=== PATIENT | female | born 1975 | race Caucasian/White ===

== ENCOUNTER 2020-07-10 14:14 | Emergency (ER) | payer MEDICAID, SELFPAY ==
[2020-07-10 14:22] VITALS: BP 129/89; PULSE 98; RESP 16; TEMP 36.8; O2SAT 98; BMI 26.5
--- NOTE | 2020-07-10 14:44 | HMH.EDGENADL ---
ED Disposition Clinical Impression: Lumbar disc disease Low back pain Qualifiers: Chronicity: acute Back pain laterality: bilateral Sciatica presence: without sciatica Qualified Code(s): M54.5 - Low back pain Disposition: Home, Self-Care Condition on Discharge: Good Instructions: DI for Low Back Pain Additional Instructions: Prednisone as prescribed. [place] as needed for pain. Follow-up with your primary care doctor next week. Additional instructions for BACK PAIN: See your physician as soon as possible for further evaluation. Return immediately if back pain becomes intolerable, or if fever, numbness or weakness of your legs, loss of control of your bowels or bladder. Prescriptions: Hydrocod/Acet 5/325 mg [[place] 5/325mg tablet] 1 tab PO Q6HP PRN #10 tab PRN Reason: Pain Prescription Printed predniSONE [Prednisone 20mg Tab] 20 mg PO BID #10 tab Prescription Printed Referrals: Jeff Babcock MD [Staff Physician] - - Critical Care Critical Care Time: No Attestation: On 07/10/20, the high probability of a clinically significant, sudden or life threatening deterioration of the following system(s) required my full and direct attention, intervention and personal management. The time I documented below is in addition to time spent performing reported procedures but includes the following listed in this critical care notation. Medical Decision Making - Abelardo Inquiry Pt receiving controlled substance: Yes Abelardo was queried for this patient: Yes Risks and benefits of using a controlled substance: were not discussed with pt by me Vital Signs: 07/10/20 14:22 07/10/20 15:00 07/10/20 15:31 Temperature 98.3 F Temperature Source Oral Pulse Rate 94 H 89 Pulse Rate [Right] 98 H Respiratory Rate 16 Blood Pressure 142/91 H 155/95 H Blood Pressure [Right Arm] 129/89 Blood Pressure Mean 107 115 Blood Pressure Mean [Right Arm] 102 Blood Pressure Source [Right Arm] Automatic Cuff Blood Pressure Position [Right Arm] Sitting 02 Sat by Pulse Oximetry 98 96 98 Oxygen Delivery Method Room Air Orders (Tests/Meds): ED MEDICATIONS Discontinued Medications Generic Name Dose Route Start Last Admin Trade Name Freq PRN Reason Stop Dose Admin Dexamethasone Sodium Phosphate 8 mg 07/10/20 15:00 07/10/20 15:04 Dexamethasone 4mg/Ml 1ml Vial IM 07/10/20 15:01 8 mg ONCE ONE Administration Hydromorphone HCl 2 mg 07/10/20 15:00 07/10/20 15:03 Hydromorphone 2mg/Ml Syringe IM 07/10/20 15:01 2 mg ONCE ONE Administration Ondansetron HCl 4 mg 07/10/20 15:00 07/10/20 15:04 Ondansetron 4mg/2ml Vial IM 07/10/20 15:01 4 mg ONCE ONE Administration - CT Data CT Scan: L-Spine Time Received: 15:[address] Reviewed: Yes: I have viewed the radiologist's interpretation Findings Narrative: PROCEDURE: CT LUMBAR SPINE WO CON CLINICAL HISTORY: back pain, legs go numb COMPARISON: No exams were available for comparison TECHNIQUE: Axial images obtained with sagittal and coronal reformats. All CT scans at the facility use one or more dose reduction, viz: automated exposure control, ma/kV adjustment per patient size (including targeted exams where dose is matched to indication, i.e. head), or iterative reconstruction technique. FINDINGS: There is normal alignment. No acute fracture or dislocation is evident. No lytic or blastic changes. Minimal lumbar curvature convex right versus patient positioning. L3-L4: Mild bulging disc. L4-5: Mild bulging disc. L5-S1 mild bulging disc with small central disc protrusion. No bony canal stenosis. Mild foraminal narrowing bilaterally at L4-5 and L5-S1. 6 mm stone is present in the mid polar region of the left kidney. No hydronephrosis. Small nodes are present in the retroperitoneum. IMPRESSION: Mild bulging disc at L3-L4 L4-5 and L5-S1 with small central disc protrusion at L5-S1 and
--- NOTE | 2020-07-10 14:54 | CT_ITS ---
PROCEDURE: CT LUMBAR SPINE WO CON CLINICAL HISTORY: back pain, legs go numb COMPARISON: No exams were available for comparison TECHNIQUE: Axial images obtained with sagittal and coronal reformats. All CT scans at the facility use one or more dose reduction, viz: automated exposure control, ma/kV adjustment per patient size (including targeted exams where dose is matched to indication, i.e. head), or iterative reconstruction technique. FINDINGS: There is normal alignment. No acute fracture or dislocation is evident. No lytic or blastic changes. Minimal lumbar curvature convex right versus patient positioning. L3-L4: Mild bulging disc. L4-5: Mild bulging disc. L5-S1 mild bulging disc with small central disc protrusion. No bony canal stenosis. Mild foraminal narrowing bilaterally at L4-5 and L5-S1. 6 mm stone is present in the mid polar region of the left kidney. No hydronephrosis. Small nodes are present in the retroperitoneum. IMPRESSION: Mild bulging disc at L3-L4 L4-5 and L5-S1 with small central disc protrusion at L5-S1 and mild bilateral foraminal narrowing at L4-5 and L5-S1. No central canal stenosis. Left nephrolithiasis Dictated by: Bo Alvarenga MD 07/10/2020 15:38 Bo Alvarenga MD in [facility] 07/10/2020 15:38
[2020-07-10 15:00] VITALS: BP 142/91; PULSE 94; O2SAT 96
[2020-07-10 15:31] VITALS: BP 155/95; PULSE 89; O2SAT 98
--- NOTE | 2020-07-10 15:48 | PC.NURSE ---
Calling [facility] to let them know pt ready for d/c
[2020-07-10 16:16] VITALS: BP 115/68; PULSE 78; RESP 16; TEMP 36.6; O2SAT 97
== END 2020-07-10 16:18 | disposition home or self-care (01) ==
PROVIDERS: Emergency Provider Emergency Medicine
DX: M51.9 Unspecified thoracic, thoracolumbar and lumbosacral intervertebral disc disorder (principal); Z88.0 Allergy status to penicillin; Z88.5 Allergy status to narcotic agent
CPT/HCPCS: 72131; 96372; 99282; J2405

== ENCOUNTER → 2020-10-08 10:02 | Outpatient (CLI) | payer MEDICAID, SELFPAY ==
--- NOTE | 2020-10-08 10:05 | XR_ITS ---
PROCEDURE: XR FOOT WT BEARING RT 3V CLINICAL INDICATION: pain COMPARISON: No exams were available for comparison FINDINGS: No fracture or dislocation. No lytic or blastic change. There is normal mineralization. The joint spaces are well-preserved. No significant degenerative/arthritic changes. No erosive changes evident. Other findings:Small calcaneal spur mild pes cavum IMPRESSION: Mild pes cavum Dictated by: Bo Alvarenga MD 10/08/2020 15:49 Bo Alvarenga MD in [facility] 10/08/2020 15:49
--- NOTE | 2020-10-08 10:05 | XR_ITS ---
PROCEDURE: XR FOOT WT BEARING LT 3V CLINICAL INDICATION: pain COMPARISON: CR XR FOOT WT BEARING RT 3V from 10/08/2020 FINDINGS: No fracture or dislocation. No lytic or blastic change. There is normal mineralization. The joint spaces are well-preserved. No significant degenerative/arthritic changes. No erosive changes evident. Other findings:Small calcaneal spur. Mild pes cavum IMPRESSION: Mild pes cavum. Dictated by: Bo Alvarenga MD 10/08/2020 15:49 Bo Alvarenga MD in [facility] 10/08/2020 15:49
== END ==
PROVIDERS: PCP Emergency Medicine; Visit Provider Podiatrist
DX: M79.672 Pain in left foot (principal); M79.671 Pain in right foot
CPT/HCPCS: 73630

== ENCOUNTER → 2020-10-21 12:45 | Outpatient (CLI) | payer MEDICAID, SELFPAY ==
--- NOTE | 2020-10-21 12:45 | MR_ITS ---
PROCEDURE INFORMATION: Exam: MR Left Lower Extremity Other Than Joint Without and With Contrast; Foot Exam date and time: 10/21/2020 12:45 PM Age: 45 years old Clinical indication: Left; Prior surgery; Surgery date: 6+ months; Surgery type: Bone spur removed; Patient HX: Bilateral foot pain, ? plantar fasciitis. TECHNIQUE: Imaging protocol: MR of the Left lower extremity without and with intravenous contrast. Exam focused on the foot. Contrast material: PROHANCE; Contrast volume: 16 ml; Contrast route: IV; COMPARISON: 1. CR XR FOOT WT BEARING LT 3V 10/08/2020 10:06 AM 2. MR FOOT RT WO/W CON 10/21/2020 1:05:25 PM FINDINGS: Bones and cartilage: A calcaneal spur is visualized. The plantar fascia is intact, as visualized. Mild degenerative spurring of the medial malleolus and adjacent talus. T1 isointensity is identified plantar to the 5th metatarsal head, suggestive of a pressure lesion. Additional T1 isointensity is identified plantar to the 2nd MTP joint, which is symmetric when compared to the right foot. There is a band of STIR hyperintensity within the proximal 4th metatarsal bone. This may represent a prominent nutrient vessel, although marrow edema is also considered. The differential for marrow edema includes arthropathy, trauma, and stress injury. Infection is considered less likely. An os trigonum is visualized. Mild cystic change identified involving the bone marrow of the medial talar dome, likely secondary to arthropathy or prior trauma. Joint spaces: Small tibiotalar and subtalar joint effusions. LIGAMENTS: Lisfranc ligament: Evaluation of the Lisfranc ligament is limited, without definitive tear. TENDONS: Flexor tendons of foot: There is increased signal intensity adjacent to the flexor digitorum tendon, consistent with a prominent vessel or tenosynovitis. Tibialis posterior tendon: Unremarkable as visualized. Peroneal tendons: Unremarkable as visualized. Extensor tendons of foot: Unremarkable. No evidence of tear. Tibialis anterior tendon: Unremarkable as visualized. Tarsal canal (Sinus tarsi): Small amount of fluid within the sinus tarsi. Soft tissues: Minimal fluid within the retrocalcaneal bursa. Plantar fascia: See Bones and cartilage finding. IMPRESSION: 1. A calcaneal spur is visualized. The plantar fascia is intact, as visualized. 2. There is a band of STIR hyperintensity within the proximal 4th metatarsal bone. This may represent a prominent nutrient vessel, although marrow edema is also considered. The differential for marrow edema includes arthropathy, trauma, and stress injury. Clinical correlation recommended. 3. Small tibiotalar and subtalar joint effusions. 4. Mild cystic change identified involving the bone marrow of the medial talar dome, likely secondary to arthropathy or prior trauma. 5. Additional findings described above.
--- NOTE | 2020-10-21 12:45 | MR_ITS ---
PROCEDURE INFORMATION: Exam: MR Right Lower Extremity Other Than Joint Without and With Contrast; Foot Exam date and time: 10/21/2020 12:45 PM Age: 45 years old Clinical indication: Right; Prior surgery; Surgery date: 6+ months; Surgery type: Bone spur removed; Patient HX: Bilateral foot pain, ? plantar fasciitis. TECHNIQUE: Imaging protocol: MR of the Right lower extremity without and with intravenous contrast. Exam focused on the foot. Contrast material: PROHANCE; Contrast volume: 16 ml; Contrast route: IV; COMPARISON: CR XR FOOT WT BEARING RT 3V 10/08/2020 10:06 AM FINDINGS: Bones and cartilage: Mild degenerative spurring at the talonavicular joint. Mild additional spurring is seen at the dorsum of the midfoot. T1 isointensity is identified plantar to the 5th metatarsal head, suggestive of a pressure lesion. Additional T1 isointensity or fibrosis is identified plantar to the 2nd MTP joint. Mild cystic/edematous change identified involving the bone marrow of the medial talar dome. This likely secondary to arthropathy or prior trauma. Calcaneal spurs visualized. No dislocation of the ankle. Mild degenerative spurring of the medial malleolus and adjacent talus. Joint spaces: Small tibiotalar and minimal subtalar joint effusions. LIGAMENTS: Deltoid ligament complex: Heterogeneous signal intensity of the deltoid ligament, although tear is not definitive. Mild edema adjacent to the calcaneofibular ligament. Ligament sprain cannot be excluded. Lisfranc ligament: Evaluation of the Lisfranc ligament is limited without definitive tear. TENDONS: Flexor tendons of foot: Unremarkable. No evidence of tear. Tibialis posterior tendon: Unremarkable. No evidence of tear. Peroneal tendons: Unremarkable. No evidence of tear. Extensor tendons of foot: Unremarkable. No evidence of tear. Tibialis anterior tendon: Unremarkable. No evidence of tear. Tarsal canal (Sinus tarsi): Edema and fluid are seen within the sinus tarsi. Soft tissues: See above. Plantar fascia: Intact, as visualized. IMPRESSION: 1. Degenerative changes. Calcaneal spurs visualized. 2. Small tibiotalar and minimal subtalar joint effusions. 3. Mild cystic/edematous change identified involving the bone marrow of the medial talar dome. This likely secondary to arthropathy or prior trauma. 4. Additional findings described above.
== END ==
PROVIDERS: PCP Emergency Medicine; Visit Provider Podiatrist
DX: G57.53 Tarsal tunnel syndrome, bilateral lower limbs (principal); M72.2 Plantar fascial fibromatosis; S93.691A Other sprain of right foot, initial encounter; M62.9 Disorder of muscle, unspecified
CPT/HCPCS: 73720; A9576

== ENCOUNTER 2021-01-23 12:03 | Emergency (ER) | payer MEDICAID, SELFPAY ==
[2021-01-23 12:04] VITALS: BP 97/71; PULSE 100; RESP 16; TEMP 37.3; O2SAT 98; BMI 30.1
--- NOTE | 2021-01-23 12:07 | HMH.EDGENADL ---
ED Disposition Clinical Impression: Pyelonephritis Disposition: Home, Self-Care Condition on Discharge: Good Prescriptions: levoFLOXacin [Levaquin 500mg tab] 500 mg PO BID #10 tab Prescription Printed levoFLOXacin [Levofloxacin] 500 mg PO BID #10 tab Transmission Status: Received by [facility] Referrals: Jeff Babcock MD [Primary Care Provider] - - Critical Care Critical Care Time: No Attestation: On , the high probability of a clinically significant, sudden or life threatening deterioration of the following system(s) required my full and direct attention, intervention and personal management. The time I documented below is in addition to time spent performing reported procedures but includes the following listed in this critical care notation. Medical Decision Making - Medical Records Medical records reviewed: Yes: I reviewed the patient's medical records. - Abelardo Inquiry Pt receiving controlled substance: No Vital Signs: 01/23/21 12:04 Temperature 99.2 F Temperature Source Oral Pulse Rate [Radial] 100 H Respiratory Rate 16 Blood Pressure [Right Arm] 97/71 L Blood Pressure Mean [Right Arm] 79 Blood Pressure Position [Right Arm] Sitting 02 Sat by Pulse Oximetry 98 Oxygen Delivery Method Room Air - Lab Data Lab results reviewed: Yes: I reviewed the patient's lab results. Lab Results 01/23/21 13:50: Urine Color Dk yellow, Urine Appearance Cloudy, Urine pH 6.0, Ur Specific [place] >= 1.030, Urine Protein 2+, Urine Glucose (UA) Negative, Urine Ketones Negative, Urine Blood 3+, Urine Nitrate Positive, Urine Bilirubin 1+ A, Urine Urobilinogen 4.0, Ur Leukocyte Esterase 2+ A, Urine RBC 10-20, Urine WBC 20-50, Ur Squamous Epith Cells Occasional, Urine Bacteria 3+ Orders (Tests/Meds): ED MEDICATIONS Discontinued Medications Generic Name Dose Route Start Last Admin Trade Name Freq PRN Reason Stop Dose Admin Levofloxacin 500 mg 01/23/21 14:27 01/23/21 14:42 Levofloxacin 250mg Tab PO 01/23/21 14:28 500 mg ONCE ONE Administration ORDERS Category Date Time Status Urine Culture Stat Micro 01/23/21 13:50 Received Medical Decision Narrative: Is a 45-year-old female presenting to the emergency department with chief complaint of flank pain, dysuria. Differential diagnosis in this patient includes urinary tract infection, Pyelonephritis, cystitis, enteritis, among others. Have low suspicion for nephrolithiasis progression of this patient's symptoms. Given this we will give a liter of fluid, order CBC, CMP, order UA and reassess. UA shows significant leuk esterase as well as white blood cells given this we will treat patient with antibiotics. Patient reports penicillin allergy with throat closing given this will prescribe her a fluoroquinolone. General Adult HPI - General Chief complaint: PAIN Stated complaint: PAIN Time Seen by Provider: 01/23/21 12:07 - Related Data Home Medications Medication Instructions Recorded Confirmed gentamicin 0.3 % eye drops 2 drp OPHTHALMIC ml 10/08/20 10/29/20 sertraline 100 mg tablet 100 mg PO tab 10/08/20 10/29/20 Previous Rx's Medication Instructions Recorded meloxicam 7.5 mg tablet 7.5 mg PO DAILY 30 Days #30 tab 10/08/20 clonazepam 0.5 mg tablet 0.5 mg PO BID PRN #60 tab 12/23/20 levoFLOXacin [Levaquin 500mg 500 mg PO BID #10 tab 01/23/21 tab] levoFLOXacin [Levofloxacin] 500 mg PO BID #10 tab 01/23/21 Allergies Allergy/AdvReac Type Severity Reaction Status Date / Time Penicillins Allergy Intermediate Verified 10/29/20 08:47 codeine Allergy Verified 10/29/20 08:47 ketorolac [From Toradol] AdvReac Mild patient Verified 10/29/20 08:47 states it causes her to sneeze [facility] History - Hepatitis A Screen Attestation statement:: This patient has been screened for Hepatitis A risk factors. Medical History: Reports:: Depression, Seizures Other Surgeries: Yes: Cholecystectomy,
[2021-01-23 13:55] LABS: Microscopic, Urine URINE MICROSCOPIC (MICROSCOPIC)
[2021-01-23 13:59] LABS: Appearance,Urine CLOUDY (Clear); Blood, Urine 3+ (Negative); Color,Urine DK YELLOW (Yellow); Glucose,Urine (UA) Negative (Negative); Ketones,Urine Negative (Negative); Leukocyte Esterase,Urine 2+ (Negative); Nitrate,Urine POSITIVE (Negative); Protein,Urine 2+ (Negative); Specific Gravity, Urine >= 1.030 (1.005-1.030)
[2021-01-23 14:06] LABS: Bilirubin,Urine 1+ (Negative)
[2021-01-23 14:15] LABS: Bacteria,Urine 3+ /lpf; Squamous Epithelial Cell,Urine Occasional #/hpf (0-5); WBC,Urine 20-50 #/hpf (0-3)
--- NOTE | 2021-01-23 14:29 | PC.NURSE ---
SPOKE WITH JOHANNY THEY ARE SENDING SOMEONE AFTER HER
[2021-01-23 17:12] VITALS: BP 135/68; PULSE 88; RESP 16; TEMP 36.6; O2SAT 98
== END 2021-01-23 17:13 | disposition home or self-care (01) ==
PROVIDERS: Emergency Provider Emergency Medicine; PCP Emergency Medicine
DX: N12 Tubulo-interstitial nephritis, not specified as acute or chronic (principal); R56.9 Unspecified convulsions; Z88.0 Allergy status to penicillin
CPT/HCPCS: 81001; 87086; 87088; 87186; 99282

== ENCOUNTER → 2021-02-22 09:31 | Outpatient (CLI) | payer MEDICAID, SELFPAY ==
--- NOTE | 2021-02-22 09:57 | ECG_ITS ---
APPROVED REPORT Exam: Resting ECG HR:78 bpm ECG Measurements Heart Rate 78 AXES OR 168 P 44 QRSd 88 QRS 28 QT 392 T 25 QTc 446 Conclusion Normal sinus rhythm Normal ECG Electronically signed by : Reed Perez MD 02/23/2021 19:57:44
[2021-02-22 11:03] LABS: Basophils # 0.1 K/mm3 (0-0.2); Basophils % 1.2 % (0.1-2.0); Eosinophils # 0.3 K/mm3 (0.0-0.4); Eosinophils % 2.9 % (0.1-12.0); Hematocrit 46.3 % (37.0-47.0); Hemoglobin 14.3 g/dL (12.2-16.2); Lymphocytes # 3.7 K/mm3 (0.7-4.5); Lymphocytes % 38.7 % (10-50); Mean Corpuscular HGB Conc 30.9 g/dL (31.8-35.4); Mean Corpuscular Hemoglobin 31.6 pg (27.0-31.2); Mean Corpuscular Volume 102.5 fl (81-99); Mean Platelet Volume 7.7 fl (7.4-10.4); Monocytes # 0.4 K/mm3 (0.1-1.0); Monocytes % 3.9 % (1.7-9.3); Neutrophils # 5.1 K/mm3 (1.8-7.8); Neutrophils % 53.3 % (37.0-80.0); Platelet Count 302 K/mm3 (142-424); Red Blood Count 4.51 M/mm3 (4.20-5.40); Red Cell Distribution Width 13.8 % (11.5-17.5); White Blood Count 9.6 K/mm3 (4.8-10.8)
[2021-02-22 11:21] LABS: Chloride 111 mmol/L (98-107); Sodium 144 mmol/L (136-145)
[2021-02-22 11:22] LABS: Potassium 3.5 mmoL/L (3.5-5.1)
[2021-02-22 11:24] LABS: Anion Gap 13.5 mEq/L (5-15); Blood Urea Nitrogen 10 mg/dl (7-17); Carbon Dioxide 23 mmol/L (22.0-30.0); Estimated Glomerular Filt Rate 68 ml/min (>60); GFR (African American) 83 ML/MIN (>60)
[2021-02-22 11:25] LABS: Calcium 9.4 mg/dl (8.4-10.2); Glucose 96 mg/dl (74-100)
== END ==
PROVIDERS: Visit Provider Otolaryngology
DX: Z01.818 Encounter for other preprocedural examination (principal); Z11.52 Encounter for screening for COVID-19; J34.2 Deviated nasal septum; J35.8 Other chronic diseases of tonsils and adenoids
CPT/HCPCS: 36415; 80048; 85025; 93005; C9803; U0003; U0005

== ENCOUNTER 2021-02-23 07:33 | Day surgery (SDC) | payer MEDICAID, SELFPAY ==
[2021-02-23 08:02] VITALS: BP 122/77; PULSE 80; RESP 16; TEMP 36.3; O2SAT 100; BMI 30.1
--- NOTE | 2021-02-23 09:16 | HMH.ANESCL ---
[facility] Anesthesia Checklist - Patient Identification Patient Identification: Arm Band - Structural Data Admitted From: Home Planned Operative Procedure/s: BMT Consent for Planned Operative Procedure(s) Verified: Yes - NPO Status Verified Time NPO: 00:00 - Additional verifications Anesthesia Reactions: No Hx Blood Transfusions: No Blood Transfusion Reaction: No - Airway Assessment C-Spine Mobility Assessed: Yes TMJ Mobility Assessed: Yes Dentition: Edentulous - Neurological Assessment Level of Consciousness: Awake Hx Seizures: No Numbness or tingling in extremities: No - Anesthesia Plan Anesthesia Risk discussed: Yes Anesthesia Plan: Verified ASA Class: II Anesthesia Type: General [facility] History I have reviewed the patient's past medical history: Yes Medical History: Reports:: Depression, Seizures Denies:: Cancer, Diabetes Mellitus Type 1, Diabetes Mellitus Type 2, Internal Pacemaker, MRSA *Have you ever received a pneumonia vaccine?: No *Have you received a flu vaccine this season?: No Other Medical History: Reports: Other (anxiety,chronic NAILS, Deafness, PTSD, herpes, head injury). Denies: Blood Transfusion Reaction Anesthesia experience/problems:: None Laterality Cases: Right: Carpal Tunnel Release Other Surgeries: Yes: Cholecystectomy, Hysterectomy-Total, Other. No: Pacemaker Amputation: No Fractures: No - *Social History Last grade of school completed: High school graduate Smoking Status: Current every day smoker Tobacco Type: cigarettes # Packs/Day (cigarettes): 2 Alcohol Intake: never Substance Use Type: denies use *Occupational Status:: disabled Housing: assisted living facility Household Members: other *Travel in the last 8 weeks: None - Psychiatric History Pschychiatric History:: Reports:: Depression Family Hx:: Coronary Artery Disease
--- NOTE | 2021-02-23 11:20 | P.OP_ITS ---
Date of procedure: 02/23/21 Pre-op Diagnosis:: Chronic serous otitis media right ear Post-op Diagnosis:: Chronic serous otitis media right ear Procedure performed:: right tympanostomy and tube placement Surgeon:: Troy Lou MD [employer]:: Other Anesthesia: GETA Estimated blood loss (mL): 0 Operative findings:: right Tympanic membrane was retracted. Mucoid middle ear effusion, Silastic sheeting implant present in the middle ear Operative note:: The patient was brought to the operating room and after adequate general a nesthesia the right ear was draped in the usual sterile fashion and the operating microscope employed to visualize the right tympanic membrane. An anterior inferior quadrant tympanostomy was made and suction employed to clear the middle ear effusion. A middle ear Silastic implant was seen and left in place. A T-tube was then placed through the myringotomy and Ciprodex drops applied and the procedure concluded. All counts correct, blood loss 0, patient was sent to recovery in stable condition. Condition: stable Disposition: PACU Complications:: none
[2021-02-23 11:22] VITALS: BP 148/93; PULSE 79; RESP 16; TEMP 36.8; O2SAT 99
[2021-02-23 11:37] VITALS: BP 146/90; PULSE 79; RESP 16; O2SAT 99
[2021-02-23 11:52] VITALS: BP 153/91; PULSE 74; RESP 16; O2SAT 99
== END 2021-02-23 11:52 | disposition home or self-care (01) ==
LOC: OR 07:34
PROVIDERS: PCP Emergency Medicine; Visit Provider Otolaryngology
PROC: (CPT 69421; principal; 2021-02-23 10:15)
DX: H65.21 Chronic serous otitis media, right ear (principal); F32.A Depression, unspecified; R56.9 Unspecified convulsions; F41.9 Anxiety disorder, unspecified; R51.9 Headache, unspecified; Z72.0 Tobacco use; Z88.0 Allergy status to penicillin; Z88.6 Allergy status to analgesic agent
CPT/HCPCS: 69421; 69990

== ENCOUNTER 2021-07-17 13:07 | Emergency (ER) | payer MEDICAID, SELFPAY ==
[2021-07-17 13:07] VITALS: BP 131/91; PULSE 92; RESP 16; TEMP 36.8; O2SAT 98; BMI 31.6
--- NOTE | 2021-07-17 13:39 | HMH.EDGENADL ---
ED Disposition Clinical Impression: Bilateral foot pain Disposition: Home, Self-Care Condition on Discharge: Good Instructions: DI for Foot Pain Additional Instructions: Continue taking gabapentin. Stay off of your feet is much as possible and elevate them to reduce pain. Follow-up with Dr. Kramer in the office, call Monday to make appointment. Referrals: Jeff Babcock MD [Primary Care Provider] - Karin Kramer DPM [Staff Physician] - - Critical Care Critical Care Time: No Attestation: On 07/17/21, the high probability of a clinically significant, sudden or life threatening deterioration of the following system(s) required my full and direct attention, intervention and personal management. The time I documented below is in addition to time spent performing reported procedures but includes the following listed in this critical care notation. Medical Decision Making - Medical Records Medical records reviewed: Yes: I reviewed the patient's medical records. MR Comment: Reviewed bilateral foot x-rays and MRI reports and to podiatry visits with Dr. Kramer from October 2020. Of note, she received Kenalog injections in both feet and was referred to pain management, Dr. Tai. She says she never followed up with Dr. Tai. When I discuss these prior evaluations and office visits with her, she states that the symptoms at that time were the same as she is having now. - Abelardo Inquiry Pt receiving controlled substance: No Vital Signs: 07/17/21 13:07 Temperature 98.3 F Temperature Source Oral Pulse Rate [Radial] 92 H Respiratory Rate 16 Blood Pressure [Right Arm] 131/91 H Blood Pressure Mean [Right Arm] 104 Blood Pressure Position [Right Arm] Sitting 02 Sat by Pulse Oximetry 98 Oxygen Delivery Method Room Air Medical Decision Narrative: I have advised the patient that I do not find a condition to treat in the emergency department. I do not feel she should be on opioids for chronic, recurrent foot pain. She states I am really not interested in your pain pills, I just want my feet to stop hurting . She says she cannot receive an injection of Toradol because she is allergic. I have advised her to follow-up with Dr. Kramer, call Monday. Continue taking gabapentin, it has not yet had enough time to take effect. I do not feel that laboratory work-up or imaging is needed. She has had previous imaging with x-rays and MRIs for the same discomfort. General Adult HPI - General Chief complaint: PAIN Stated complaint: foot pain Time Seen by Provider: 07/17/21 13:30 Mode of Arrival: EMS Limitations: No Limitations Description of Symptoms (Recalled from ER Triage Doc. by RN): TO ED PER SQUAD WITH C/O MELLISA FOOT PAIN, BURNING, TINGLING X 1-2 WEEKS. STARTED GABAPENTIN YESTERDAY HAS HAD TOTAL OF 3DOSES. PT DENIES ANY INJURY - History of Present Illness HPI narrative: Patient arrives by ambulance from [facility] complaining of bilateral foot pain. She describes a burning sensation on the bottom of her feet more towards the forefoot and toes that has been going on for 2 weeks. Worsens with weightbearing. She was started on gabapentin yesterday but says that it still hurts. No injury. She is not diabetic. She states that she had bone spurs removed from her feet 3 years ago at a hospital in [place] and her symptoms at that time were similar. - Related Data Home Medications Medication Instructions Recorded Confirmed gentamicin 0.3 % eye drops 2 drp OPHTHALMIC DAILY ml 10/08/20 03/16/21 sertraline 100 mg tablet 100 mg PO DAILY tab 10/08/20 03/16/21 melatonin 5 mg tablet 5 mg PO DAILY tab 03/16/21 03/16/21 quetiapine 300 mg tablet 300 mg PO DAILY tab 03/16/21 03/16/21 quetiapine 50 mg tablet 50 mg PO QHS tab 03/16/21 03/16/21 topiramate 200 mg tablet 200 mg PO DAILY tab 03/16/21 03/16/21 Previous Rx's Medication Instructions Recorded meloxicam 7.5 mg tablet 7.5 mg PO DAILY 30 Days #30 tab
[2021-07-17 14:23] VITALS: BP 144/90; PULSE 78; RESP 16; TEMP 36.6; O2SAT 97
== END 2021-07-17 14:25 | disposition home or self-care (01) ==
PROVIDERS: Emergency Provider Emergency Medicine; PCP Emergency Medicine
DX: M79.672 Pain in left foot (principal); M79.671 Pain in right foot; R20.2 Paresthesia of skin; F32.A Depression, unspecified; F17.210 Nicotine dependence, cigarettes, uncomplicated; Z79.899 Other long term (current) drug therapy; Z88.0 Allergy status to penicillin; Z88.5 Allergy status to narcotic agent; Z88.6 Allergy status to analgesic agent; Z82.49 Family history of ischemic heart disease and other diseases of the circulatory system
CPT/HCPCS: 99282

== ENCOUNTER 2022-05-13 02:32 | Emergency (ER) | payer MEDICAID, SELFPAY ==
[2022-05-13 02:33] VITALS: BP 180/98; PULSE 104; RESP 17; TEMP 36.8; O2SAT 100; BMI 27.8
--- NOTE | 2022-05-13 02:47 | CT_ITS ---
PROCEDURE INFORMATION: Exam: CT Abdomen And Pelvis With Contrast Exam date and time: 05/13/2022 3:43 AM Age: 46 years old Clinical indication: Injury or trauma; Fall; Patient HX: Left sided pain TECHNIQUE: Imaging protocol: Computed tomography of the abdomen and pelvis with contrast. Radiation optimization: All CT scans at this facility use at least one of these dose optimization techniques: automated exposure control; mA and/or kV adjustment per patient size (includes targeted exams where dose is matched to clinical indication); or iterative reconstruction. Contrast material: ISOVUE; Contrast volume: 75 ml; Contrast route: IV; REPORTING DATA: Count of CT and Cardiac NM exams in prior 12 months: This patient has received [address] and 0 known cardiac nuclear medicine studies in the 12 months prior to the current study. COMPARISON: CT CHEST WO CON 05/13/2022 3:40 AM FINDINGS: Liver: Normal. No mass. Gallbladder and bile ducts: The gallbladder has been removed. Pancreas: Normal. No ductal dilation. Spleen: Normal. No splenomegaly. Adrenal glands: Normal. No mass. Kidneys and ureters: Left kidney lateral midpole cyst with an adjacent nonobstructing 4 mm calcification. Left kidney lower pole posterior area of low attenuation measuring 2 cm in size. Nearby mild perinephric fat stranding. No hydronephrosis or hydroureter. Stomach and bowel: Unremarkable. No obstruction. No mucosal thickening. Appendix: Normal appendix. Intraperitoneal space: Unremarkable. No free air. No significant fluid collection. Vasculature: Minimal atherosclerosis. Lymph nodes: Unremarkable. No enlarged lymph nodes. Urinary bladder: Unremarkable as visualized. Reproductive: Uterus removed. Bones/joints: Unremarkable. No acute fracture. Soft tissues: Unremarkable. IMPRESSION: Left kidney changes in the setting of trauma which could represent a contusion and contained grade 2 laceration though pyelonephritis with a complex cyst or intrarenal abscess is also considered. COMMENTS: Consistent with the [employer]'s Incidental Findings Committee white paper (J Am Filiberto Radiol 2018): Any incidental renal lesion less than 1 cm or classified as too small to characterize, or any incidental cystic renal lesion characterized as simple-appearing, is likely benign. No follow-up imaging is recommended for these lesions per consensus recommendations based on imaging criteria.
--- NOTE | 2022-05-13 02:47 | CT_ITS ---
PROCEDURE INFORMATION: Exam: CT Chest Without Contrast; Diagnostic Exam date and time: 05/13/2022 3:40 AM Age: 46 years old Clinical indication: Injury or trauma; Fall; Patient HX: Left sided pain TECHNIQUE: Imaging protocol: Diagnostic computed tomography of the chest without contrast. 3D rendering (Not supervised by radiologist): MIP and/or 3D reconstructed images were created by the technologist. Radiation optimization: All CT scans at this facility use at least one of these dose optimization techniques: automated exposure control; mA and/or kV adjustment per patient size (includes targeted exams where dose is matched to clinical indication); or iterative reconstruction. REPORTING DATA: Count of CT and Cardiac NM exams in prior 12 months: This patient has received [address] and 0 known cardiac nuclear medicine studies in the 12 months prior to the current study. COMPARISON: No relevant prior studies available. FINDINGS: Lungs: Unremarkable. No consolidation. No masses. Pleural spaces: Unremarkable. No pneumothorax. No pleural effusion. Heart: Unremarkable. No cardiomegaly. No pericardial effusion. Coronary arteries: No coronary artery calcifications. Lymph nodes: Unremarkable. No enlarged lymph nodes. Vasculature: Minimal atherosclerosis of the aortic arch. Bones/joints: Old right-sided 5th rib fracture. DJD. Soft tissues: Unremarkable. IMPRESSION: 1. No acute findings. 2. Please see the concurrent CT abdomen and pelvis for the upper abdominal findings.
[2022-05-13 03:00] LABS: Alanine Aminotransferase 29 U/L (12-78); Albumin Level 4.2 g/dl (3.5-5.0); Albumin/Globulin Ratio 1.3 (1.1-1.8); Alkaline Phosphatase 135 U/L (38-126); Anion Gap 9.6 mEq/L (5-15); Aspartate Amino Transferase 26 U/L (14-36); Bilirubin,Total 0.7 mg/dl (0.2-1.3); Blood Urea Nitrogen 9 mg/dl (7-17); Calcium 8.6 mg/dl (8.4-10.2); Carbon Dioxide 25 mmol/L (22.0-30.0); Chloride 103 mmol/L (98-107); Creatinine Clearance Estimated 131 mL/min (50-200); Estimated Glomerular Filt Rate 91 ml/min (>60); GFR (African American) 110 ML/MIN (>60); Globulin 3.3 g/dL (1.3-3.2); Glucose 107 mg/dl (74-100); Potassium 3.6 mmoL/L (3.5-5.1); Sodium 134 mmol/L (136-145); Total Protein,Serum 7.5 g/dl (6.3-8.2)
[2022-05-13 03:07] LABS: Basophils # 0.1 K/mm3 (0-0.2); Basophils % 0.7 % (0.1-2.0); Eosinophils # 0.2 K/mm3 (0.0-0.4); Eosinophils % 1.5 % (0.1-12.0); Hematocrit 46.9 % (37.0-47.0); Hemoglobin 15.1 g/dL (12.2-16.2); Lymphocytes # 4.5 K/mm3 (0.7-4.5); Mean Corpuscular HGB Conc 32.1 g/dL (31.8-35.4); Mean Corpuscular Hemoglobin 29.8 pg (27.0-31.2); Mean Corpuscular Volume 92.7 fl (81-99); Mean Platelet Volume 8.4 fl (7.4-10.4); Monocytes # 0.9 K/mm3 (0.1-1.0); Monocytes % 5.4 % (1.7-9.3); Neutrophils # 10.3 K/mm3 (1.8-7.8); Neutrophils % 64.4 % (37.0-80.0); Platelet Count 262 K/mm3 (142-424); Red Blood Count 5.06 M/mm3 (4.20-5.40); Red Cell Distribution Width 13.1 % (11.5-17.5)
[2022-05-13 03:09] LABS: MANUAL DIFFERENTIAL MANUAL DIFFERENTIAL (MANUAL DIFF)
--- NOTE | 2022-05-13 03:11 | HMH.EDFALL ---
Discharge Plan Disposition Patient Disposition: Xfer Short-Term Hosp Chief Complaint: Fall Prescriptions Prescriptions: No Action quetiapine 50 mg tablet 50 mg PO QHS topiramate 200 mg tablet 200 mg PO DAILY quetiapine 300 mg tablet 300 mg PO DAILY melatonin 5 mg tablet 5 mg PO DAILY sertraline 100 mg tablet 100 mg PO DAILY gentamicin 0.3 % drops 2 drp OPHTHALMIC DAILY meloxicam 7.5 mg tablet 7.5 mg PO DAILY 30 Days Qty: 30 2RF mupirocin 2 % ointment TP omeprazole 40 mg capsule,delayed release(DR/EC) 40 mg PO DAILY clonazepam [Klonopin] 0.5 mg tablet 0.5 mg PO BID PRN (Reason: anxiety) Qty: 60 5RF gabapentin 100 mg capsule 100 mg PO BID Qty: 60 2RF Referrals Follow up/Referrals: Jeff Babcock MD [Primary Care Provider] - See instructions Clinical Impressions Clinical Impression: Acute kidney injury due to trauma Discharge ED Provider: Yoko (ED)Jeff Fall HPI General Chief Complaint: Fall Stated Complaint: left side pain Time Seen by Provider: 05/13/22 03:11 Mode of Arrival: Ambulatory Source of Information: Patient and Medical Record Limitations: No Limitations Description of Symptoms (Recalled from ER Triage Doc. by RN): Pt arrives to ED with c/o left sided rib pain after experiencing a fall on Monday. Pt stated she just mis-stepped which caused her to fall on her left side. Pt did not hit head at time of fall, -LOC, -Blood thinners. Pt reports taking advil for pain relief, but states the pain has just gotten worse. History of Present Illness HPI Narrative: pt tripped and hit guard rail wed am 0715 and has had increasing pain to lt renal and costal area - no fever or vomiting and no hematuria - complaint: fall Onset (ago): day(s) Fall from: walking Fall witnessed: no Place fall occurred: street Loss of consciousness: none Prolonged down time: no Symptoms prior to fall: none Context: tripped/slipped Location of injury: back and other (lt costal area ) Severity: severe Quality: sharp Related Data Home Medications Medication Instructions Recorded Confirmed gentamicin 0.3 % eye drops 2 drp ophthalmic (eye) DAILY eyes 10/08/20 10/12/21 sertraline 100 mg tablet 100 mg PO DAILY Depression 10/08/20 10/12/21 melatonin 5 mg tablet 5 mg PO DAILY 03/16/21 10/12/21 quetiapine 300 mg tablet 300 mg PO DAILY 03/16/21 10/12/21 quetiapine 50 mg tablet 50 mg PO QHS 03/16/21 10/12/21 topiramate 200 mg tablet 200 mg PO DAILY 03/16/21 10/12/21 mupirocin 2 % topical ointment g topical 08/20/21 10/12/21 omeprazole 40 mg capsule,delayed 40 mg PO DAILY 10/12/21 10/12/21 release Previous Rx's Medication Instructions Recorded meloxicam 7.5 mg tablet 7.5 mg PO DAILY pain 30 days #30 10/08/20 tabs clonazepam 0.5 mg tablet (Klonopin) 0.5 mg PO BID PRN anxiety #60 tabs 06/30/21 gabapentin 100 mg capsule 100 mg PO BID #60 caps 10/12/21 Allergies Allergy/AdvReac Type Severity Reaction Status Date / Time Penicillins Allergy Intermediate Verified 10/12/21 14:49 codeine Allergy Verified 10/12/21 14:49 ketorolac [From Toradol] AdvReac Mild patient Verified 10/12/21 14:49 states it causes her to sneeze PFSH PFSH Disclaimer: The information contained in this section may have been updated after the patient was seen, as this information can be updated by other users. Medical History (Updated 05/13/22 @ 05:32 by Jeff Babcock MD (ED)) Depression Tinnitus TMJ (dislocation of temporomandibular joint) Surgical History (Updated 10/12/21 @ 14:51 by Winter Robles CMA) History of carpal tunnel release Family History (Updated 10/12/21 @ 14:51 by Winter Robles CMA) Other Coronary artery disease Social History Smoking Status: Current every day smoker tobacco type: cigarettes packs per day: 2 second hand exposure: No alcohol intake: never substance use type: denies use c
--- NOTE | 2022-05-13 04:12 | PC.NURSE ---
Dr. Babcock s/w [facility]
[2022-05-13 04:17] LABS: Microscopic, Urine URINE MICROSCOPIC (MICROSCOPIC)
[2022-05-13 04:36] LABS: Lymphocytes % 20 % (10-50); Monocytes % 7 % (2-9); Neutrophils % 73 % (42-76); Total Cells Counted 100
[2022-05-13 04:37] LABS: Platelet Estimate Normal; RBC Morphology Normal
[2022-05-13 04:46] LABS: Appearance,Urine CLEAR (Clear); Bilirubin,Urine Negative (Negative); Blood, Urine Negative (Negative); Color,Urine YELLOW (Yellow); Glucose,Urine (UA) Negative (Negative); Ketones,Urine Negative (Negative); Leukocyte Esterase,Urine TRACE (Negative); Nitrate,Urine Negative (Negative); Protein,Urine Negative (Negative); Specific Gravity, Urine <= 1.005 (1.005-1.030); Urobilinogen,Urine 0.2 EU/dl (0.2)
[2022-05-13 04:56] LABS: WBC,Urine Occasional #/hpf (0-3)
[2022-05-13 05:00] VITALS: BP 115/76; PULSE 77; O2SAT 98
--- NOTE | 2022-05-13 05:07 | PC.NURSE ---
is currently speaking with Dr. Isidro with [facility].
[2022-05-13 05:30] VITALS: BP 126/81; PULSE 72; RESP 20; O2SAT 99
[2022-05-13 06:08] VITALS: BP 125/81; PULSE 72; RESP 18; TEMP 36.6; O2SAT 99
== END 2022-05-13 06:10 | disposition short-term general hospital (02) ==
PROVIDERS: Emergency Provider Emergency Medicine; PCP Emergency Medicine
DX: N17.9 Acute kidney failure, unspecified (principal); W01.198A Fall on same level from slipping, tripping and stumbling with subsequent striking against other object, initial encounter
CPT/HCPCS: 71250; 74177; 80053; 81001; 85007; 85025; 96360; 96374; 96375; 99285; J0131; J2405; Q9967

== ENCOUNTER 2023-12-20 07:13 | Emergency (ER) | payer MEDICAID, SELFPAY ==
[2023-12-20 07:19] VITALS: BP 171/96; PULSE 102; O2SAT 99
--- NOTE | 2023-12-20 07:27 | XR_ITS ---
FINAL REPORT CLINICAL HISTORY: bilateral foot pain COMPARISON: None FINDINGS: LEFT FOOT: Three views of the left foot were obtained. There is no acute fracture or dislocation. The joint spaces are intact. There is no soft tissue abnormality. A small plantar calcaneal spur is present. IMPRESSION: No acute bony abnormality. Reviewed, Interpreted and Dictated by Yobany Espino III, MD Transcribed by Radha Verdin Authenticated and [facility]
--- NOTE | 2023-12-20 07:27 | XR_ITS ---
FINAL REPORT CLINICAL HISTORY: .bilateral foot pain COMPARISON: None FINDINGS: RIGHT FOOT: Three views of the right foot were obtained. There is a nondisplaced fracture of the proximal aspect of the fifth proximal phalanx. The joint spaces are intact. A small plantar calcaneal spur is present. There is no soft tissue abnormality. IMPRESSION: Nondisplaced fracture of the proximal aspect of the fifth proximal phalanx. Reviewed, Interpreted and Dictated by Yobany Espino III, MD Transcribed by Radha Verdin Authenticated and [facility]
[2023-12-20 07:30] VITALS: BP 143/95; PULSE 83; O2SAT 97
[2023-12-20 07:31] VITALS: BP 171/96; PULSE 72; RESP 18; TEMP 36.7; O2SAT 99; BMI 41.7
--- NOTE | 2023-12-20 07:35 | ED_ITS ---
Discharge Plan Disposition Chief Complaint: PAIN Prescriptions Prescriptions: No Action quetiapine 50 mg tablet 50 mg PO QHS topiramate 200 mg tablet 200 mg PO DAILY quetiapine 300 mg tablet 300 mg PO DAILY melatonin 5 mg tablet 5 mg PO DAILY sertraline 100 mg tablet 100 mg PO DAILY gentamicin 0.3 % drops 2 drp OPHTHALMIC DAILY meloxicam 7.5 mg tablet 7.5 mg PO DAILY 30 Days Qty: 30 2RF mupirocin 2 % ointment TP omeprazole 40 mg capsule,delayed release(DR/EC) 40 mg PO DAILY clonazepam [Klonopin] 0.5 mg tablet 0.5 mg PO BID PRN (Reason: anxiety) Qty: 60 5RF gabapentin 100 mg capsule 100 mg PO BID Qty: 60 2RF Referrals Follow up/Referrals: Provider,MD Shun [Primary Care Provider] - See instructions Karin Kramer DPM [Staff Physician] - See instructions Reed Hough MD [Staff Physician] - See instructions Activity Restrictions/Add. Instructions Additional Instructions/Restrictions: Call your family doctor to establish care for this visit to the emergency department and schedule follow-up within 48 hours to ensure improvement. If you have any worsening of your condition or any other concerning signs or symptoms, return to the emergency department or your primary care doctor for further evaluation. Call Dr. Hough's office in order to set up primary care, Dr. Kramer for podiatry. Clinical Impressions Clinical Impression: Pain in both feet Print Language Print Language: [place] Discharge ED Provider: Norm Starkey General Adult HPI General Chief complaint: PAIN Stated complaint: painful, swollen feet, past surgeries Time Seen by Provider: 12/20/23 07:18 Mode of Arrival: Ambulatory Source of Information: Patient Limitations: No Limitations Description of Symptoms (Recalled from ER Triage Doc. by RN): pt c/o bilateral 10/10 sharp foot pain. pt states this has been chronic since she had surgery in 2009 on both for bone spurs. pt reports OTC pain relievers are not helping. History of Present Illness HPI narrative: Please note that above description of symptoms, in this electronic medical record under categorization of recalled from ER triage doctor by RN are reflective of an initial nursing assessment, however, is not reflective of my full history and physical exam that was personally taken and clarified. Consequentially, this preceding description of symptoms, which may include the patient's categorized chief complaint in the EMR, do not reflect my personal clinical impression, and the ultimate description of history of present illness and patient stated complaints should be deferred to this section of the note. Unless stated otherwise or congruent with this section of the note, additional signs, symptoms, or incongruence should be interpreted as inaccurate with my clinical impression. Related Data Home Medications ?Medication ?Instructions ?Recorded ?Confirmed gentamicin 0.3 % eye drops 2 drp ophthalmic (eye) DAILY eyes 10/08/20 10/12/21 sertraline 100 mg tablet 100 mg PO DAILY Depression 10/08/20 10/12/21 melatonin 5 mg tablet 5 mg PO DAILY 03/16/21 10/12/21 quetiapine 300 mg tablet 300 mg PO DAILY 03/16/21 10/12/21 quetiapine 50 mg tablet 50 mg PO QHS 03/16/21 10/12/21 topiramate 200 mg tablet 200 mg PO DAILY 03/16/21 10/12/21 mupirocin 2 % topical ointment g topical 08/20/21 10/12/21 omeprazole 40 mg capsule,delayed 40 mg PO DAILY 10/12/21 10/12/21 release Previous Rx's ?Medication ?Instructions ?Recorded meloxicam 7.5 mg tablet 7.5 mg PO DAILY pain 30 days #30 10/08/20 tabs clonazepam 0.5 mg tablet (Klonopin) 0.5 mg PO BID PRN anxiety #60 tabs 06/30/21 gabapentin 100 mg capsule 100 mg PO BID #60 caps 10/12/21 Allergies Allergy/AdvReac Type Severity Reaction Status Date / Time Penicillins Allergy Intermediate Unknown Verified 12/20/23 07:35 allergy reaction codeine Allergy Unknown Verified 12/20/23 07:35 allergy reaction ketorolac (From Toradol) AdvReac Mild patient Verified 12/20/23 07:35 states it causes her to sneeze [facility] Disclaimer: The information contained in this section may have been updated after the patient was seen, as this information can be updated by other users. Medical History (Updated 12/20/23 @ 09:27 by Norm Starkey MD) TMJ (dislocation of temporomandibular joint) Tinnitus Depression Surgical History (Updated 10/12/21 @ 14:51 by ROSSI Guzman) History of carpal tunnel release Family History (Updated 10/12/21 @ 14:51 by ROSSI Guzman) Other Coronary artery disease Social History Smoking Status: Current every day smoker tobacco type: cigarettes packs per day: 2 second hand exposure: No alcohol intake: never substance use type: denies use current occupational status: disabled Travel in the last 8 weeks: None household members: other housing: assisted living facility current occupational exposures/hazards: No caffeine: Yes Other Medical History Have you received the Flu Vaccine for this season: No Have you received the Pneumonia Vaccine: No ROS Obtained: Yes All systems reviewed & no additional complaints except as documented Physical Exam General General appearance: alert Head Head exam: atraumatic and normocephalic Eye Eye exam: Present normal appearance, PERRL and EOMI Neck Neck exam: Present normal inspection, full ROM and trachea midline Respiratory Respiratory exam: Absent respiratory distress, wheezes, stridor, accessory muscle use or prolonged expiratory phase Cardiovascular Cardiovascular exam: Present other (Pulses equal symmetric in upper and lower extremities) Abdominal Exam Abdominal exam: Present soft; Absent distention, tenderness or pulsatile mass Extremities Exam Extremities exam: Present other (Exaggerated tenderness with minimal touch. Likely secondary to symptom magnification versus neuropathy); Absent edema Neurological Exam Neurological exam: Present alert, oriented X3 and CN II-XII intact; Absent motor sensory deficit Skin Skin exam: Present warm and dry; Absent diaphoresis or erythema Medical Decision Making Medical Records Medical records reviewed: Yes I reviewed the patient's medical records. Screening: Per USPSTF and CDC recommendations, given the prevalence of disease in our [facility], it is our hospital?s policy to screen for HIV and viral Hepatitis for all patients aged 18 and over and those with ongoing risk factors. Abelardo Inquiry Pt receiving controlled substance: No Abelardo was queried for this patient: No Vital Signs: 12/20/23 07:19 12/20/23 07:30 12/20/23 07:31 Temperature 98.1 F Temperature Source Oral Pulse Rate 102 H 83 Pulse Rate [Left] 72 Respiratory Rate 18 Blood Pressure 171/96 H 143/95 H Blood Pressure [Right Arm] 171/96 H Blood Pressure Mean [Right Arm] 121 Blood Pressure Source [Right Arm] Automatic Cuff Blood Pressure Position [Right Arm] Sitting 02 Sat by Pulse Oximetry 99 97 99 Oxygen Delivery Method Room Air Room Air Room Air 12/20/23 08:35 Temperature Temperature Source Pulse Rate 82 Pulse Rate [Left] Respiratory Rate Blood Pressure 139/96 H Blood Pressure [Right Arm] Blood Pressure Mean [Right Arm] Blood Pressure Source [Right Arm] Blood Pressure Position [Right Arm] 02 Sat by Pulse Oximetry 99 Oxygen Delivery Method Orders (Tests/Meds): ED MEDICATIONS Discontinued Medications Generic Name Dose Route Start Last Admin Trade Name Krishna PRN Reason Stop Dose Admin Ibuprofen 600 mg 12/20/23 08:35 12/20/23 08:37 Ibuprofen 600 Mg Tablet PO 12/20/23 08:36 600 mg ONCE ONE Administration Prednisone 40 mg 12/20/23 07:27 12/20/23 08:37 Prednisone 20mg Tab PO 12/20/23 07:28 40 mg ONCE ONE Administration ORDERS Category Date Time Status XR foot LT min 3V Stat Exams 12/20/23 07:27 Taken XR foot RT min 3V Stat Exams 12/20/23 07:27 Taken Medical Decision Narrative: 48-year-old female history of bone spurs and bilateral heels presenting with bilateral foot pain. She states that this has been going on for months to years. Getting worse. Has not seen her family doctor for any of this. Used to see Dr. Babcock, Dr. Babcock no longer with [facility]. Has not sought help. Is taking Tylenol and Motrin a couple of times, but states I am not want to take medicines, and has not tried any other interventions. States that it hurts constantly, worse when she stands and works. Has been trying to trade shifts at work so that she does not have to be on her feet. No fevers, chills, red hot swollen joints, lower extremity swelling, trauma to the area acutely, or any other concerns. History was obtained via conversation with patient. On arrival, patient hemodynamically stable, alert, oriented x4, appropriate, GCS 15, moving all extremities spontaneously, pupils equal and reactive to light. Full physical exam performed and significant for well- appearing female no acute distress. Hyperalgesia to minimal touch consistent with neuropathy versus symptom magnification. Neurovascularly intact, range of motion intact. No focal tenderness. Differential includes neuropathy, radiculopathy, plantar fasciitis, somatic cessation, among others. Patient given Toradol injection as well as prednisone p.o. for pain. Independent interpretation of x-ray imaging demonstrates no acute bony abnormalities. This is most consistent with neuropathic pain versus other musculoskeletal pain. Regarding social determinants of health, patient does not have PCP and has never been referred to podiatry, both of these referrals were placed today. Because patient at baseline without signs or symptoms of clinical decompensation, deemed appropriate for discharge. Results were relayed to patient who voiced understanding and were agreeable to outpatient management and follow up. I discussed my clinical impression with patient and answered all questions. At this time, the evidence for any other entities in the differential is insufficient to warrant any further testing or ED observation. This was explained as well. Advisory was given that persistent or worsening symptoms require further evaluation. I confirmed the understanding of this discussion. Orthopedic Podiatrist disclaimer Much of this encounter note is an electronic truck hop spoken language to printed text. Electronic truck hop of the spoken language may permit errors. Although I have reviewed the note, some errors may still exist. Critical Care Critical Care Time Critical Care Time: No
--- NOTE | 2023-12-20 08:25 | PC.NURSE ---
I rounded on the pt and she requested something for pain. I received a verbal order from Dr. Starkey for ibuprofen. no other needs voiced call estrada in reach.
[2023-12-20 08:35] VITALS: BP 139/96; PULSE 82; O2SAT 99
[2023-12-20] MEDS: predniSONE 20MG TAB 40 MG PO (08:37)
[2023-12-20] MEDS: IBUPROFEN 600 MG TABLET PO (08:37)
--- NOTE | 2023-12-20 08:40 | PC.NURSE ---
pt ambulated to the bathroom.
[2023-12-20 09:35] VITALS: BP 139/96; PULSE 82; RESP 13; TEMP 36.7
== END 2023-12-20 09:36 | disposition home or self-care (01) ==
PROVIDERS: Emergency Provider Emergency Medicine
DX: M79.671 Pain in right foot (principal); M79.672 Pain in left foot
CPT/HCPCS: 73630; 99283

== ENCOUNTER 2023-12-30 07:25 | Emergency (ER) | payer MEDICAID, SELFPAY ==
[2023-12-30 07:26] VITALS: BP 162/105; PULSE 88; RESP 20; TEMP 37.1; O2SAT 100; BMI 31.8
--- NOTE | 2023-12-30 07:42 | CT_ITS ---
PROCEDURE INFORMATION: Exam: CT Head Without And With Contrast Exam date and time: 12/30/2023 7:54 AM Age: 48 years old Clinical indication: Pain; Other: Otitis media ruptured; Prior surgery; Surgery date: 6+ months; Surgery type: To repair otitis media; Additional info: Otitis media ruptured, R mastoid pain and swelling TECHNIQUE: Imaging protocol: Computed tomography of the head without and with contrast. Radiation optimization: All CT scans at this facility use at least one of these dose optimization techniques: automated exposure control; mA and/or kV adjustment per patient size (includes targeted exams where dose is matched to clinical indication); or iterative reconstruction. Contrast material: ISOVUE 300; Contrast volume: 100 ml; Contrast route: IV; COMPARISON: No relevant prior studies available. FINDINGS: Brain: There is no evidence of acute intracranial hemorrhage, extra-axial collection or locoregional mass effect. There are scattered hypodensities in the periventricular and subcortical white matter. The appearance is nonspecific, but most likely represents chronic small vessel disease in a person of this age Cerebral ventricles: The ventricles, sulci and cisterns are normal in size and configuration for patient's age. No hydrocephalus or midline structure shift Pituitary gland and sella: Sellar/parasellar structures, craniocervical junction and orbits are unremarkable Paranasal sinuses: Visualized sinuses are unremarkable. No fluid levels. Mastoid air cells: Status post right canal wall down mastoidectomy. Auditory system: There is opacification of right middle ear cavity. Bones: No calvarial fracture Soft tissues: Unremarkable. Vasculature: There is a right frontal developmental venous anomaly. IMPRESSION: 1. There is opacification of right middle ear cavity. 2. No acute intracranial abnormality. 3. Right frontal developmental venous anomaly (of no clinical significance).
--- NOTE | 2023-12-30 07:42 | ED_ITS ---
Discharge Plan Prescriptions Prescriptions: New cefdinir 300 mg capsule 300 mg PO BID 10 Days Qty: 20 0RF No Action quetiapine 50 mg tablet 50 mg PO QHS topiramate 200 mg tablet 200 mg PO DAILY quetiapine 300 mg tablet 300 mg PO DAILY melatonin 5 mg tablet 5 mg PO DAILY sertraline 100 mg tablet 100 mg PO DAILY gentamicin 0.3 % drops 2 drp OPHTHALMIC DAILY meloxicam 7.5 mg tablet 7.5 mg PO DAILY 30 Days Qty: 30 2RF mupirocin 2 % ointment TP omeprazole 40 mg capsule,delayed release(DR/EC) 40 mg PO DAILY clonazepam [Klonopin] 0.5 mg tablet 0.5 mg PO BID PRN (Reason: anxiety) Qty: 60 5RF gabapentin 100 mg capsule 100 mg PO BID Qty: 60 2RF Referrals Follow up/Referrals: Provider,Shun, [Primary Care Provider] - See instructions Troy Lou MD [Physician] - See instructions Activity Restrictions/Add. Instructions Additional Instructions/Restrictions: Call your family doctor to establish care for this visit to the emergency department and schedule follow-up within 48 hours to ensure improvement. If you have any worsening of your condition or any other concerning signs or symptoms, return to the emergency department or your primary care doctor for further evaluation. Antibiotic twice daily for 10 days. ENT follow-up listed here, call to schedule an appointment. Clinical Impressions Clinical Impression: Right otitis media with spontaneous rupture of eardrum Print Language Print Language: Italian Discharge ED Provider: Norm Starkey General Adult HPI General Chief complaint: Ear Stated complaint: right ear pain Time Seen by Provider: 12/30/23 07:31 Mode of Arrival: Ambulatory Source of Information: Patient Limitations: No Limitations Description of Symptoms (Recalled from ER Triage Doc. by RN): rt ear pain for a week, have previously had surgery on the rt ear twice. the last one being in 2013 History of Present Illness HPI narrative: Please note that above description of symptoms, in this electronic medical record under categorization of recalled from ER triage doctor by RN are reflective of an initial nursing assessment, however, is not reflective of my full history and physical exam that was personally taken and clarified. Consequentially, this preceding description of symptoms, which may include the patient's categorized chief complaint in the EMR, do not reflect my personal clinical impression, and the ultimate description of history of present illness and patient stated complaints should be deferred to this section of the note. Unless stated otherwise or congruent with this section of the note, additional signs, symptoms, or incongruence should be interpreted as inaccurate with my clinical impression. Related Data Home Medications ?Medication ?Instructions ?Recorded ?Confirmed gentamicin 0.3 % eye drops 2 drp ophthalmic (eye) DAILY eyes 10/08/20 10/12/21 sertraline 100 mg tablet 100 mg PO DAILY Depression 10/08/20 10/12/21 melatonin 5 mg tablet 5 mg PO DAILY 03/16/21 10/12/21 quetiapine 300 mg tablet 300 mg PO DAILY 03/16/21 10/12/21 quetiapine 50 mg tablet 50 mg PO QHS 03/16/21 10/12/21 topiramate 200 mg tablet 200 mg PO DAILY 03/16/21 10/12/21 mupirocin 2 % topical ointment g topical 08/20/21 10/12/21 omeprazole 40 mg capsule,delayed 40 mg PO DAILY 10/12/21 10/12/21 release Previous Rx's ?Medication ?Instructions ?Recorded meloxicam 7.5 mg tablet 7.5 mg PO DAILY pain 30 days #30 10/08/20 tabs clonazepam 0.5 mg tablet (Klonopin) 0.5 mg PO BID PRN anxiety #60 tabs 06/30/21 gabapentin 100 mg capsule 100 mg PO BID #60 caps 10/12/21 cefdinir 300 mg capsule 300 mg PO BID 10 days #20 caps 12/30/23 Allergies Allergy/AdvReac Type Severity Reaction Status Date / Time Penicillins Allergy Intermediate Unknown Verified 12/20/23 07:35 allergy reaction codeine Allergy Unknown Verified 12/20/23 07:35 allergy reaction ketorolac (From Toradol) AdvReac Mild patient Verified 12/20/23 07:35 states it causes her to sneeze [facility] Disclaimer: The information contained in this section may have been updated after the patient was seen, as this information can be updated by other users. Medical History (Updated 12/30/23 @ 09:48 by Norm Starkey MD) TMJ (dislocation of temporomandibular joint) Tinnitus Depression Surgical History (Updated 10/12/21 @ 14:51 by ROSSI Guzman) History of carpal tunnel release Family History (Updated 10/12/21 @ 14:51 by ROSSI Guzman) Other Coronary artery disease Social History Smoking Status: Current every day smoker tobacco type: cigarettes packs per day: 2 second hand exposure: No alcohol intake: never substance use type: denies use current occupational status: disabled household members: other housing: assisted living facility current occupational exposures/hazards: No caffeine: Yes Other Medical History Have you received the Flu Vaccine for this season: No Have you received the Pneumonia Vaccine: No ROS Obtained: Yes All systems reviewed & no additional complaints except as documented Physical Exam General General appearance: alert and in distress (Secondary to pain) Head Head exam: atraumatic and normocephalic Eye Eye exam: Present normal appearance, PERRL and EOMI ENT ENT exam: Present normal external ear exam; Absent TM's normal bilaterally (Ruptured, purulent right tympanic membrane. Tenderness without outward signs of swelling, erythema, induration, or fluctuance of right mastoid. No ear rotation) Neck Neck exam: Present normal inspection, full ROM and trachea midline Respiratory Respiratory exam: Absent respiratory distress, wheezes, stridor, accessory muscle use or prolonged expiratory phase Cardiovascular Cardiovascular exam: Present other (Pulses equal symmetric in upper and lower extremities) Abdominal Exam Abdominal exam: Present soft; Absent distention, tenderness or pulsatile mass Extremities Exam Extremities exam: Absent edema Neurological Exam Neurological exam: Present alert, oriented X3 and CN II-XII intact; Absent motor sensory deficit Skin Skin exam: Present warm and dry; Absent diaphoresis or erythema Medical Decision Making Medical Records Medical records reviewed: Yes I reviewed the patient's medical records. Screening: Per USPSTF and CDC recommendations, given the prevalence of disease in our region, it is our hospital?s policy to screen for HIV and viral Hepatitis for all patients aged 18 and over and those with ongoing risk factors. Abelardo Inquiry Pt receiving controlled substance: No Abelardo was queried for this patient: No Vital Signs: 12/30/23 07:26 Temperature 98.8 F Temperature Source Oral Pulse Rate [Right Brachial] 88 Respiratory Rate 20 Blood Pressure [Right Arm] 162/105 H Blood Pressure Mean [Right Arm] 124 02 Sat by Pulse Oximetry 100 Oxygen Delivery Method Room Air Lab Data Lab Results 12/30/23 07:47: WBC 10.2, RBC 4.87, Hgb 14.8, Hct 44.0, MCV 90.4, MCH 30.4, MCHC 33.6, RDW 13.4, Plt Count 321, MPV 7.4, Neut % (Auto) 56.0, Lymph % (Auto) 37.4, Tompkins % (Auto) 3.4, Eos % (Auto) 1.9, Baso % (Auto) 1.4, Neut # (Auto) 5.7, Lymph # (Auto) 3.8, Tompkins # (Auto) 0.4, Eos # (Auto) 0.2, Baso # (Auto) 0.1, Sodium 141, Potassium 3.8, Chloride 119 H, Carbon Dioxide 21 L, Anion Gap 4.8 L, BUN 14, Creatinine 0.80, Estimated Creat Clear 109, Estimated GFR 77, Est GFR ( Amer) 93, Glucose 107 H, Calcium 9.4, Total Bilirubin 0.4, AST 27, ALT 34, Alkaline Phosphatase 101, Total Protein 7.1, Albumin 4.2, Globulin 2.9, Albumin/Globulin Ratio 1.4 12/30/23 09:08: Lactate 1.3 12/30/23 07:47 12/30/23 07:47 Orders (Tests/Meds): ED MEDICATIONS Generic Name Dose Route Start Last Admin Trade Name Freq PRN Reason Stop Dose Admin Sodium Chloride 10 ml 12/30/23 08:27 12/30/23 08:29 Sodium Chloride 0.9% 10ml Syr (Rad Only) IV 01/29/24 08:26 10 ml NEEDED PRN Administration Maintain IV Site Discontinued Medications Generic Name Dose Route Start Last Admin Trade Name Freq PRN Reason Stop Dose Admin Diphenhydramine HCl 25 mg 12/30/23 08:16 12/30/23 08:39 Diphenhydramine 50mg/Ml Vial IV 12/30/23 08:17 25 mg ONCE ONE Administration Ceftriaxone Sodium 2 gm/ 100 mls @ 200 mls/hr 12/30/23 07:42 12/30/23 09:01 Sodium Chloride IV 12/30/23 08:11 200 mls/hr ONCE ONE Administration Iopamidol 100 ml 12/30/23 08:27 12/30/23 08:29 Iopamidol-300 (61%) 100ml Vial IV 12/30/23 08:28 100 ml ONCE ONE Administration Protocol Ketorolac Tromethamine 15 mg 12/30/23 07:42 12/30/23 08:31 Ketorolac 30mg/Ml Vial IV 12/30/23 07:43 15 mg ONCE ONE Administration Morphine Sulfate 4 mg 12/30/23 07:42 12/30/23 08:32 Morphine 4mg/Ml Syringe IV 12/30/23 07:43 4 mg ONCE ONE Administration Ondansetron HCl 4 mg 12/30/23 07:42 12/30/23 08:31 Ondansetron 4mg/2ml Vial IV 12/30/23 07:43 4 mg ONCE ONE Administration ORDERS Category Date Time Status CT head/brain wo/w con Stat Cat Scan 12/30/23 07:42 Completed CBC w/Auto Diff [Complete Blood Count Auto Diff] Stat Lab 12/30/23 07:47 Completed CMP [Comprehensive Metabolic Panel] Stat Lab 12/30/23 07:47 Completed HIV (1&2) Antibody Rapid Stat Lab 12/30/23 07:47 Received Hep C Ab with Reflex to RNA Stat Lab 12/30/23 07:47 Received Lactic Acid Stat Lab 12/30/23 09:08 Completed UA [Urinalysis and Microscopic] Stat Lab 12/30/23 09:38 Received Blood Culture Stat Micro 12/30/23 08:58 Received Medical Decision Narrative: 48-year-old female history of numerous right-sided ear surgeries and otitis media in the past presenting with right-sided ear pain. Been going on for for 5 days. Getting progressively worse. No fevers or chills, nausea or vomiting, vision changes, neurologic deficits. She states that the pain is 10 out of 10, worse when she lays down and worse when she lays on her right side. Associated with greenish-red ear drainage. Has not noticed anything that makes it better. Came in for further evaluation. History was obtained via conversation with patient. On arrival, patient hemodynamically stable, alert, oriented x4, appropriate, GCS 15, moving all extremities spontaneously, pupils equal and reactive to light. Full physical exam performed and significant for 48-year-old female in mild distress secondary to pain. Tearful. Ruptured, purulent right tympanic membrane. Tenderness without outward signs of swelling, erythema, induration, or fluctuance of right mastoid. No ear rotation. No lymphadenopathy. Cranial nerves intact. Range of motion of neck intact, no crepitus, bruits, outward signs of abnormality otherwise. Differential includes otitis media, mastoiditis, intracranial abscess, temporomandibular joint dysfunction, osteomyelitis, among others. Patient placed on continuous cardiac monitoring and continuous pulse ox with initial blood pressure 162/105, heart rate 88, saturation 100% on room air. Patient was given Toradol, Benadryl, morphine, Zofran, 2 g ceftriaxone for symptomatic management and correction of underlying abnormalities. Workup independently interpreted and significant for nonactionable CBC or chemistry. Negative lactate. Blood cultures drawn and pending. On independent interpretation of imaging, no evidence of osteomyelitis of the base of the skull, abscess, or mastoiditis. See radiology read for full review of final results. On reevaluation, patient resting more comfortably than on arrival states that it is much improved. Results were relayed to patient, she is understanding and grateful. Recommended she follow-up with her family doctor as well as ENT, referral placed. Cefdinir sent to pharmacy given history of penicillin allergy. Because patient at baseline without signs or symptoms of clinical decompensation, deemed appropriate for discharge. Results were relayed to patient who voiced understanding and were agreeable to outpatient management and follow up. I discussed my clinical impression with patient and answered all questions. At this time, the evidence for any other entities in the differential is insufficient to warrant any further testing or ED observation. This was explained as well. Advisory was given that persistent or worsening symptoms require further evaluation. I confirmed the understanding of this discussion. Service Liaison Representative disclaimer Much of this encounter note is an electronic produce weigher spoken language to printed text. Electronic produce weigher of the spoken language may permit errors. Although I have reviewed the note, some errors may still exist. Critical Care Critical Care Time Critical Care Time: No
[2023-12-30 08:02] LABS: Basophils # 0.1 K/mm3 (0-0.2); Basophils % 1.4 % (0.1-2.0); Eosinophils # 0.2 K/mm3 (0.0-0.4); Eosinophils % 1.9 % (0.1-12.0); Hemoglobin 14.8 g/dL (12.2-16.2); Lymphocytes # 3.8 K/mm3 (0.7-4.5); Lymphocytes % 37.4 % (10-50); Mean Corpuscular HGB Conc 33.6 g/dL (31.8-35.4); Mean Corpuscular Hemoglobin 30.4 pg (27.0-31.2); Mean Corpuscular Volume 90.4 fl (81-99); Mean Platelet Volume 7.4 fl (7.4-10.4); Monocytes # 0.4 K/mm3 (0.1-1.0); Monocytes % 3.4 % (1.7-9.3); Neutrophils # 5.7 K/mm3 (1.8-7.8); Platelet Count 321 K/mm3 (142-424); Red Blood Count 4.87 M/mm3 (4.20-5.40); Red Cell Distribution Width 13.4 % (11.5-17.5); White Blood Count 10.2 K/mm3 (4.8-10.8)
[2023-12-30 08:16] LABS: Alanine Aminotransferase 34 U/L (12-78); Albumin Level 4.2 g/dl (3.5-5.0); Albumin/Globulin Ratio 1.4 (1.1-1.8); Alkaline Phosphatase 101 U/L (38-126); Anion Gap 4.8 mEq/L (5-15); Aspartate Amino Transferase 27 U/L (14-36); Bilirubin,Total 0.4 mg/dl (0.2-1.3); Blood Urea Nitrogen 14 mg/dl (7-17); Calcium 9.4 mg/dl (8.4-10.2); Carbon Dioxide 21 mmol/L (22.0-30.0); Chloride 119 mmol/L (98-107); Creatinine Clearance Estimated 109 mL/min (50-200); Estimated Glomerular Filt Rate 77 ml/min (>60); GFR (African American) 93 ML/MIN (>60); Globulin 2.9 g/dL (1.3-3.2); Glucose 107 mg/dl (74-100); Potassium 3.8 mmoL/L (3.5-5.1); Sodium 141 mmol/L (136-145); Total Protein,Serum 7.1 g/dl (6.3-8.2)
[2023-12-30] MEDS: SODIUM CHLORIDE 0.9% 10ML SYR (RAD ONLY) 10 ML IV (08:29)
[2023-12-30] MEDS: IOPAMIDOL-300 (61%) 100ML VIAL 100 ML IV (08:29)
[2023-12-30] MEDS: KETOROLAC 30MG/ML VIAL 15 MG IV (08:31)
[2023-12-30] MEDS: ONDANSETRON 4MG/2ML VIAL 4 MG IV (08:31)
[2023-12-30] MEDS: MORPHINE 4MG/ML SYRINGE 4 MG IV (08:32)
[2023-12-30] MEDS: diphenhydrAMINE 50MG/ML VIAL 25 MG IV (08:39)
[2023-12-30] MEDS: CEFTRIAXONE SODIUM 2 GM in 0.9 % SODIUM CHLORIDE 100 ML IV (09:01)
[2023-12-30 09:25] LABS: Lactic Acid 1.3 mmol/L (0.7-2.1)
[2023-12-30 09:44] LABS: Microscopic, Urine URINE MICROSCOPIC (MICROSCOPIC)
[2023-12-30 10:07] VITALS: BP 121/74; PULSE 61; RESP 14; TEMP 36.4; O2SAT 99
[2023-12-30 10:13] LABS: Appearance,Urine CLEAR (Clear); Bilirubin,Urine Negative (Negative); Blood, Urine Negative (Negative); Color,Urine YELLOW (Yellow); Glucose,Urine (UA) Negative (Negative); Ketones,Urine Negative (Negative); Leukocyte Esterase,Urine Negative (Negative); Nitrate,Urine Negative (Negative); Protein,Urine Negative (Negative); Urobilinogen,Urine 0.2 EU/dl (0.2)
[2023-12-30 12:17] LABS: HIV (1&2) Antibody Rapid NONREACTIVE (NONREACTIVE)
[2023-12-31 11:13] LABS: HCV Ab Non Reactive (Non Reactive)
== END 2023-12-30 10:07 | disposition home or self-care (01) ==
PROVIDERS: Emergency Provider Emergency Medicine
DX: H66.91 Otitis media, unspecified, right ear (principal); H92.01 Otalgia, right ear; Z72.0 Tobacco use
CPT/HCPCS: 70470; 80053; 81001; 83605; 85025; 86803; 87040; 87389; 96365; 96374; 96375; 99285; J0696; J1200; J1885; J2270; J2405; Q9967

== ENCOUNTER 2024-01-11 07:22 | Emergency (ER) | payer MEDICAID, SELFPAY ==
[2024-01-11 07:30] VITALS: BP 191/106; PULSE 91; O2SAT 99
[2024-01-11 07:31] VITALS: BP 175/111; PULSE 91; O2SAT 97
[2024-01-11 07:32] VITALS: BP 175/111; PULSE 95; RESP 16; TEMP 36.9; O2SAT 99; BMI 28.7
[2024-01-11] MEDS: IBUPROFEN 400 MG TABLET 800 MG PO (07:56)
[2024-01-11] MEDS: ACETAMINOPHEN 500MG TAB 1000 MG PO (07:56)
--- NOTE | 2024-01-11 07:56 | [facility].EDGENADL ---
Discharge Plan Disposition Patient Disposition: Home, Self-Care Condition: Good Prescriptions Prescriptions: New ciprofloxacin HCl 500 mg tablet 500 mg PO BID Qty: 20 0RF No Action cefdinir 300 mg capsule 300 mg PO BID 10 Days Qty: 20 0RF Referrals Follow up/Referrals: Gavino Vallejo DO [Staff Physician] - See instructions Ifeoma Arellano APRN [Nurse Practitioner] - See instructions Provider,Referral, [Primary Care Provider] - See instructions Activity Restrictions/Add. Instructions Additional Instructions/Restrictions: You were evaluated in the emergency department today. 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 Make sure not to skip any doses. Please complete the full course. Use eardrops twice daily. Apply 4 drops into affected ear twice daily for 7 days. It is very important that you follow-up closely with ENT. Please call their office to make an appointment over the next 24 hours. I also recommend close follow-up with your primary care provider. Take Tylenol and ibuprofen every 4-6 hours at home as needed for pain. Return to the emergency department for new or worsening symptoms or if your symptoms do not improve after 72 hours of antibiotics. Clinical Impressions Clinical Impression: Acute otitis media of right ear with perforated tympanic membrane, Otitis externa Stand Alone Forms Stand Alone Forms: Work/School Release Instructions Patient Instructions: DI for Tympanic Membrane Perforation-Adult, DI for Otitis Externa Print Language Print Language: Spanish Discharge ED Provider: Juana Pastor General Adult HPI General Chief complaint: Ear Stated complaint: R ear pain Time Seen by Provider: 01/11/24 07:28 Mode of Arrival: Ambulatory Source of Information: Patient and Spouse Limitations: No Limitations Description of Symptoms (Recalled from ER Triage Doc. by RN): Pt. arrived to ED with complaints of right ear pain x 2 weeks. She was seen approx. 10 days ago in the ED and diagnosed with a ruptured ear drum and put on cefdinir 300 mg BID x 10 days. She states she has been taking her medication and the pain is not better. She describes the pain as stabbing and aching, radiating into her jaw. She rates it a 8/10 with sitting still, a 10/10 with movement or touch. She does have a history of tympanoplasty x2 about 10 years ago. She has not seen ENT since that time. History of Present Illness HPI narrative: This patient is a 48-year-old female who denies significant past medical history presenting to the emergency department for evaluation with concern for right ear pain for 2 weeks. She was seen 10 days ago in the ED and diagnosed with otitis media with perforation and prescribed cefdinir twice daily x 10 days. She states has been taking it but the pain is not better. She does note she is currently still on it, however if she been taking it as prescribed she should have already run out based on my medical record review. She has a history of tympanoplasty x 2 about 10 years ago but has not seen ENT since then. She states that pain is 8 out of 10 constantly and 10 out of 10 with sneezing. No trismus, drooling, fevers, chills, or other concerns. No neurologic symptoms noted. Related Data Previous Rx's ?Medication ?Instructions ?Recorded cefdinir 300 mg capsule 300 mg PO BID 10 days #20 caps 12/30/23 ciprofloxacin HCl 500 mg tablet 500 mg PO BID #20 tabs 01/11/24 Allergies Allergy/AdvReac Type Severity Reaction Status Date / Time Penicillins Allergy Intermediate Unknown Verified 01/11/24 07:38 allergy reaction codeine Allergy Unknown Verified 01/11/24 07:38 allergy reaction ketorolac (From Toradol) AdvReac Mild patient Verified 01/11/24 07:38 states it causes her to sneeze [facility] Disclaimer: The information contained in this section may have been updated after the patient was seen, as this information can be updated by other users. Medical History TMJ (dislocation of temporomandibular joint) Tinnitus Depression Surgical History History of carpal tunnel release Family History Other Coronary artery disease Social History Smoking Status: Current every day smoker tobacco type: cigarettes packs per day: 2 second hand exposure: No alcohol intake: never substance use type: denies use current occupational status: disabled Travel in the last 8 weeks: None household members: other housing: assisted living facility current occupational exposures/hazards: No caffeine: Yes Other Medical History Have you received the Flu Vaccine for this season: No Have you received the Pneumonia Vaccine: No ROS Obtained: Yes All systems reviewed & no additional complaints except as documented Physical Exam General General appearance: alert and in no apparent distress Head Head exam: atraumatic and normocephalic Eye Eye exam: Present normal appearance, PERRL and EOMI ENT ENT exam: Present normal oropharynx, mucous membranes moist and normal external ear exam; Absent TM's normal bilaterally Expanded ENT Exam External ear exam: Present normal external inspection; Absent auricular hematoma, mastoid tenderness, external tenderness or periauricular adenopathy TM/Canal exam: Right TM: erythema, canal discharge and canal tenderness Neck Neck exam: Present normal inspection, full ROM and trachea midline; Absent tenderness Chest Chest inspection: Present normal inspection and symmetric chest wall rise; Absent tenderness Respiratory Respiratory exam: Present normal lung sounds bilaterally; Absent respiratory distress, wheezes, stridor or accessory muscle use Cardiovascular Cardiovascular exam: Present regular rate and normal rhythm Abdominal Exam Abdominal exam: Present soft; Absent distention, tenderness or guarding Extremities Exam Extremities exam: Present normal inspection, full ROM and normal capillary refill; Absent tenderness or edema Back Exam Back exam: Present normal inspection and full ROM; Absent tenderness Neurological Exam Neurological exam: Present alert, oriented X3, CN II-XII intact and normal gait; Absent motor sensory deficit Psychiatric Psychiatric exam: Present normal affect and normal mood Skin Skin exam: Present warm and dry Medical Decision Making Medical Records Medical records reviewed: Yes I reviewed the patient's medical records. Screening: Per USPSTF and CDC recommendations, given the prevalence of disease in our region, it is our hospital?s policy to screen for HIV and viral Hepatitis for all patients aged 18 and over and those with ongoing risk factors. Abelardo Inquiry Pt receiving controlled substance: No Vital Signs: 01/11/24 07:32 Temperature 98.5 F Temperature Source Oral Pulse Rate [Right Brachial] 95 H Respiratory Rate 16 Blood Pressure [Right Arm] 175/111 H Blood Pressure Mean [Right Arm] 132 Blood Pressure Source [Right Arm] Automatic Cuff Blood Pressure Position [Right Arm] Sitting 02 Sat by Pulse Oximetry 99 Oxygen Delivery Method Room Air Lab Data Lab results reviewed: Yes I reviewed the patient's lab results. Orders (Tests/Meds): ED MEDICATIONS Generic Name Dose Route Start Last Admin Trade Name Freq PRN Reason Stop Dose Admin Acetaminophen 1,000 mg 01/11/24 07:48 Acetaminophen 500mg Tab PO 01/11/24 07:49 ONCE ONE Ciprofloxacin/Dexamethasone 7.5 ml 01/11/24 07:48 Cipro 0.3%-Dex 0.1% Otic Susp 7.5ml OT 01/11/24 07:49 ONCE ONE Ibuprofen 800 mg 01/11/24 07:55 Ibuprofen 400 Mg Tablet PO 01/11/24 07:56 ONCE ONE Medical Decision Narrative: In summary, this patient is a 48-year-old female presenting to the Emergency Department for evaluation of continued right ear pain for 2 weeks after recent evaluation here 12/30/2023. Differential diagnoses considered include but are not limited to otitis media, otitis externa, TM perforation, malignant otitis externa, mastoiditis. Ruling out the most morbid conditions drove assessment. I reviewed patient's past medical records and noted evaluation here 12/30/2023 for ear pain as noted in HPI. On exam, the patient has no significant mastoid tenderness, fluctuance, or necrosis noted but she does have canal discharge and tenderness with erythema and irritation. She also has a perforated TM. She is nontoxic-appearing and is neurologically intact. No trismus noted. Overall, I have low concern for malignant otitis externa or mastoiditis based on clinical exam, but I do think that given continued symptoms the patient would benefit from broadening of her antibiotics to include pseudomonal coverage. She was counseled on the importance of antibiotic compliance. She was given oral Tylenol and ibuprofen for pain. I also advised that I feel she would benefit from very close follow-up with ENT as well as her primary care provider for continued management. I did give her strict return precautions should she have worsening of symptoms or no improvement after 72 hours of antibiotics, as I feel she is high risk for developing complications such as malignant otitis externa or mastoiditis given persistent symptoms. She expressed understanding and agreement. Ultimately, she was discharged with prescription for ciprofloxacin and plan for close follow-up as an outpatient. Critical Care Critical Care Time Critical Care Time: No
[2024-01-11 08:00] VITALS: BP 163/102; PULSE 81; O2SAT 97
[2024-01-11] MEDS: CIPRO 0.3%-DEX 0.1% OTIC SUSP 7.5ML OT (08:21)
[2024-01-11 08:22] VITALS: BP 162/102; PULSE 88; RESP 18; TEMP 36.9; O2SAT 99
== END 2024-01-11 08:33 | disposition home or self-care (01) ==
PROVIDERS: Emergency Provider Emergency Medicine
DX: H66.91 Otitis media, unspecified, right ear (principal); H60.90 Unspecified otitis externa, unspecified ear; H92.01 Otalgia, right ear
CPT/HCPCS: 99283

== ENCOUNTER 2024-02-11 07:10 | Observation (INO) | payer MEDICAID, SELFPAY ==
[2024-02-11] VITALS (15 sets, daily range): BP systolic 103–141; BP diastolic 47–91; PULSE 77–118; RESP 16–20; TEMP 36.8–37.2; O2SAT 92–100; BMI 32.2
--- NOTE | 2024-02-11 07:29 | ED_ITS ---
Discharge Plan Disposition Patient Disposition: Admitted Condition: Good Clinical Impressions Clinical Impression: Sepsis secondary to UTI, Pyelonephritis Discharge ED Provider: Gabe Hall General Adult HPI General Chief complaint: Nausea/Vomiting/Diarrhea Stated complaint: body aches, headache, nausea, weakness Time Seen by Provider: 02/11/24 07:15 Mode of Arrival: Ambulatory Source of Information: Patient Limitations: No Limitations Description of Symptoms (Recalled from ER Triage Doc. by RN): pt presents to ED with c/o not feeling well . pt reprots body aches, nausea, vomitting, headache. no diarrhea. ongoing for the past 5 days. History of Present Illness HPI narrative: Patient is a 48-year-old female who presents emergency department for evaluation multiple complaints. Predominantly patient has had diffuse bodyaches and vomiting which is nonbloody for the last 5 days. She has had low left paraspinal back pain, global headache. Headache is bitemporal wrapping around in a bandlike distribution cross her forehead. Patient denies chest pain or significant cough. No abdominal pain. No other acute complaints at this time. Due to persistent symptoms she presents here for continued evaluation. Related Data Allergies Allergy/AdvReac Type Severity Reaction Status Date / Time Penicillins Allergy Intermediate Unknown Verified 02/11/24 07:26 allergy reaction codeine Allergy Unknown Verified 02/11/24 07:26 allergy reaction ketorolac (From Toradol) AdvReac Mild patient Verified 02/11/24 07:26 states it causes her to sneeze PFSH PFSH Disclaimer: The information contained in this section may have been updated after the patient was seen, as this information can be updated by other users. Medical History TMJ (dislocation of temporomandibular joint) Tinnitus Depression Surgical History History of carpal tunnel release Family History Other Coronary artery disease Social History Smoking Status: Current every day smoker tobacco type: cigarettes packs per day: 2 second hand exposure: No alcohol intake: never substance use type: denies use current occupational status: disabled Travel in the last 8 weeks: None household members: other housing: assisted living facility current occupational exposures/hazards: No caffeine: Yes Have you lived/traveled outside US in past 30 days?: No Contact w/someone who lives/traveled outside US past 30 days?: No Exposure to someone with infectious disease in past 14 days?: No Do you have a fever (greater than 100.4 F or 38 C)?: No Have you tested positive for COVID-19: No Exposed to someone with COVID-19 in past 14 days?: No Do you have a sore throat?: No Do you have a cough?: No Do you have any weakness?: No Do you have any diarrhea?: No Are you experiencing any unusual bleeding?: No Do you have any muscle aches/pain?: No Do you have any abdominal pain?: No Are you experiencing loss of taste or smell?: No Other Medical History Have you received the Flu Vaccine for this season: No Have you received the Pneumonia Vaccine: No ROS Obtained: Yes Systems reviewed as appropriate & no additional complaints except as documented Physical Exam General General appearance: alert and in no apparent distress Head Head exam: atraumatic and normocephalic Eye Eye exam: Present PERRL and EOMI ENT ENT exam: Present mucous membranes moist Neck Neck exam: Present normal inspection Chest Chest inspection: Present normal inspection and symmetric chest wall rise Respiratory Respiratory exam: Present normal lung sounds bilaterally; Absent respiratory distress, wheezes or stridor Cardiovascular Cardiovascular exam: Present normal rhythm and tachycardia Abdominal Exam Abdominal exam: Present soft; Absent tenderness, guarding, rebound or rigidity Extremities Exam Extremities exam: Present normal inspection Back Exam Back exam: Present normal inspection and tenderness (Discordantly tender to superficial touch left lateral paraspinal, no overlying rashes, no midline tenderness) Neurological Exam Neurological exam: Present alert, CN II-XII intact and normal gait; Absent motor sensory deficit Psychiatric Psychiatric exam: Present normal affect Skin Skin exam: Present warm and dry Medical Decision Making Medical Records Screening: Per USPSTF and CDC recommendations, given the prevalence of disease in our region, it is our hospital?s policy to screen for HIV and viral Hepatitis for all patients aged 18 and over and those with ongoing risk factors. [place] Inquiry Pt receiving controlled substance: No Vital Signs: 02/11/24 07:11 02/11/24 07:15 02/11/24 07:30 Temperature 98.9 F Temperature Source Oral Pulse Rate 118 H 110 H Pulse Rate [Left Radial] 108 H Respiratory Rate 18 Blood Pressure 141/85 H 124/76 Blood Pressure [Right Arm] 141/85 H Blood Pressure Mean Blood Pressure Mean [Right Arm] 103 02 Sat by Pulse Oximetry 98 99 97 Oxygen Delivery Method Room Air Room Air Room Air 02/11/24 08:22 02/11/24 08:30 02/11/24 09:01 Temperature Temperature Source Pulse Rate 103 H 96 H 98 H Pulse Rate [Left Radial] Respiratory Rate Blood Pressure 117/65 113/69 103/53 L Blood Pressure [Right Arm] Blood Pressure Mean Blood Pressure Mean [Right Arm] 02 Sat by Pulse Oximetry 96 98 98 Oxygen Delivery Method Room Air Room Air Room Air 02/11/24 09:46 02/11/24 10:01 02/11/24 10:31 Temperature Temperature Source Pulse Rate 89 89 87 Pulse Rate [Left Radial] Respiratory Rate Blood Pressure 104/53 L 119/91 H 105/56 L Blood Pressure [Right Arm] Blood Pressure Mean Blood Pressure Mean [Right Arm] 02 Sat by Pulse Oximetry 96 96 96 Oxygen Delivery Method Room Air Room Air Room Air 02/11/24 10:39 02/11/24 11:37 Temperature Temperature Source Pulse Rate 87 91 H Pulse Rate [Left Radial] Respiratory Rate Blood Pressure 121/73 Blood Pressure [Right Arm] Blood Pressure Mean 82 Blood Pressure Mean [Right Arm] 02 Sat by Pulse Oximetry 92 L 100 Oxygen Delivery Method Room Air Lab Data Lab Results 02/11/24 07:14: SARS-CoV-2 (PCR) Not detected, Influenza A Untype (PCR) Not detected, Influenza Type B (PCR) Not detected 02/11/24 07:35: WBC 15.5 H, RBC 4.06 L, Hgb 12.1 L, Hct 36.3 L, MCV 89.4, MCH 29.8, MCHC 33.3, RDW 12.5, Plt Count 287, MPV 9.7, Neut % (Auto) 78.7, Lymph % (Auto) 12.3, [place] % (Auto) 7.9, Eos % (Auto) 0.3, Baso % (Auto) 0.3, Neut # (Auto) 12.2 H, Lymph # (Auto) 1.9, [place] # (Auto) 1.2 H, Eos # (Auto) 0.0, Baso # (Auto) 0.1, Total Counted 100, Neutrophils % (Manual) 79 H, Lymphocytes % (Manual) 18, Monocytes % (Manual) 3, Platelet Estimate Normal, RBC Morphology Normal, Sodium 135 L, Potassium 3.7, Chloride 103, Carbon Dioxide 23, Anion Gap 12.7, BUN 8, Creatinine 0.70, Estimated Creat Clear 131, Estimated GFR 90, Est GFR ( Amer) 109, Glucose 103 H, Calcium 9.2, Total Bilirubin 0.6, AST 31, ALT 35, Alkaline Phosphatase 125, Total Creatine Kinase 33, Total Protein 6.9, Albumin 4.0, Globulin 2.9, Albumin/Globulin Ratio 1.4, Lipase 53 02/11/24 08:00: Urine Color Yellow, Urine Appearance Clear, Urine pH 6.5, Ur Specific [place] 1.020, Urine Protein Trace, Urine Glucose (UA) Negative, Urine Ketones Negative, Urine Blood 1+ A, Urine Nitrate Positive A, Urine Bilirubin Negative, Urine Urobilinogen 1.0, Ur Leukocyte Esterase Negative, Urine RBC None, Urine WBC 10-20, Ur Squamous Epith Cells 3-5, Urine Bacteria Trace 02/11/24 07:35 02/11/24 07:35 Orders (Tests/Meds): ED MEDICATIONS Generic Name Dose Route Start Last Admin Trade Name Freq PRN Reason Stop Dose Admin Acetaminophen 650 mg 02/11/24 13:25 Acetaminophen 325mg Tab PO 03/12/24 13:24 Q4HP PRN Fever or Mild Pain (1-3) Hydrocodone Bitart/Acetaminophen 1 tab 02/11/24 13:25 02/11/24 13:49 Hydrocodone/Apap 5/325 Mg Tablet PO 03/12/24 13:24 1 tab Q4HP PRN Administration Mild to Moderate Pain (1-6) Hydrocodone Bitart/Acetaminophen 2 tab 02/11/24 13:25 Hydrocodone/Apap 5/325 Mg Tablet PO 03/12/24 13:24 Q4HP PRN Moderate to Severe Pain (4-10) Enoxaparin Sodium 40 mg 02/12/24 09:00 Enoxaparin 40mg/0.4ml Syringe SUBCUT 03/13/24 08:59 DAILY ELSA Ondansetron HCl 4 mg 02/11/24 13:25 Ondansetron 4mg/2ml Vial IV 03/12/24 13:24 Q8HP PRN Nausea Discontinued Medications Generic Name Dose Route Start Last Admin Trade Name Carmineq PRN Reason Stop Dose Admin Acetaminophen 1,000 mg 02/11/24 07:27 02/11/24 07:33 Acetaminophen 500mg Tab PO 02/11/24 07:28 1,000 mg ONCE ONE Administration Lactated Ringer's 1,000 mls @ 999 mls/hr 02/11/24 07:27 02/11/24 07:34 Lactated Ringer's 1000 Ml Bag IV 02/11/24 08:27 999 mls/hr .Q1H1M ONE Administration Ceftriaxone Sodium 1 gm/ 50 mls @ 100 mls/hr 02/11/24 08:59 02/11/24 09:11 Sodium Chloride IV 02/11/24 09:28 Not Given ONCE ONE Levofloxacin/Dextrose 750 mg in 150 mls @ 100 mls/hr 02/11/24 09:07 02/11/24 09:26 Levofloxacin 750mg/150ml Premix IV 02/11/24 10:36 100 mls/hr ONCE ONE Administration Ibuprofen 800 mg 02/11/24 07:27 02/11/24 07:32 Ibuprofen 400 Mg Tablet PO 02/11/24 07:28 800 mg ONCE ONE Administration Morphine Sulfate 4 mg 02/11/24 09:05 02/11/24 09:25 Morphine 4mg/Ml Syringe IV 02/11/24 09:06 4 mg ONCE ONE Administration Ondansetron HCl 4 mg 02/11/24 07:27 02/11/24 07:33 Ondansetron 4mg Odt SL 02/11/24 07:28 4 mg ONCE ONE Administration ORDERS Category Date Time Status CT abdomen pelvis wo con Stat Cat Scan 02/11/24 08:58 Completed CBC w/Auto Diff [Complete Blood Count Auto Diff] Stat Lab 02/11/24 07:35 Completed CK [Creatine Kinase] Stat Lab 02/11/24 07:35 Completed CMP [Comprehensive Metabolic Panel] Stat Lab 02/11/24 07:35 Completed Lipase Stat Lab 02/11/24 07:35 Completed Rapid PCR Covid and Flu A/B Stat Lab 02/11/24 07:14 Completed UA [Urinalysis and Microscopic] Stat Lab 02/11/24 08:00 Completed Blood Culture Stat Micro 02/11/24 09:05 Received Urine Culture Stat Micro 02/11/24 08:00 Received Medical Decision Narrative: In summary patient is a 48-year-old female past medical history described above who presents emergency department for evaluation of bodyaches, headache, vomiting. Patient is hemodynamically stable nontoxic-appearing upon arrival, afebrile. History and physical strongly consistent with viral syndrome for which differential includes influenza, among others. Differential also includes urinary tract infection, pancreatitis. Given duration of vomiting screening for metabolic derangement will be conducted with hematologic labs. Additional workup be conducted with urinalysis and viral swab. Initial inventions include crystalloid bolus, Tylenol, ibuprofen, ondansetron. Intracranial imaging was considered however patient has a nonfocal neurologic exam and I have no concern for bacterial meningitis currently with no nuchal rigidity and otherwise nonfocal neurologic exam. Patient is slightly tachycardic which may be service support representative of mild dehydration versus viremia versus pain mediated. She has no midline tenderness in her back or anterior abdominal tenderness that would warrant CT imaging although was considered will be deferred initially. Low concern initially ureterolithiasis based on history and physical exam given the nature of the pain with allodynia. Initial workup reviewed by me, leukocytosis of 15.5, and no critical electrolyte abnormality or LOLITA. Urinalysis consistent with infection with trace protein will give a dose of levofloxacin given anaphylaxis to penicillins. Upon repeat evaluation patient now has left flank pain. This could be service support representative of ureteritis with urinary tract infection however need to rule out infected stone at this time and will get noncontrasted CT scan of the abdomen pelvis. Patient has continued severe pain for which a single dose of morphine is reasonable will be administered. Blood cultures will be obtained. Sepsis bolus fluids was considered however patient had resolved tachycardia after 1 L and appears largely euvolemic now will be deferred. CT imaging informally visualized by me, there is calcifications in the pelvis however it is difficult for me to tell if it is a ureteral stone or phlebolith which will significantly alter patient's disposition. The patient was placed in observation status at 10:01 AM. Medical necessity for observational status is definitive imaging read. The patient was provided serial reevaluations and cardiac monitoring while awaiting results. CT imaging of the abdomen pelvis shows an edematous left kidney without ureteral calculus. Given this in the setting of infection patient has pyelonephritis and meets sepsis criteria and will benefit from admission for continued evaluation. Case discussed with hospital medicine regarding management they will meet the patient their service for continued evaluation at this time. Total time in observation 1 hour. Critical Care Critical Care Time Critical Care Time: Yes Attestation: On 02/11/24, the high probability of a clinically significant, sudden or life threatening deterioration of the following system(s) required my full and direct attention, intervention and personal management. The time I documented below is in addition to time spent performing reported procedures but includes the following listed in this critical care notation. Total Time Total Critical Care Time: 35
[2024-02-11 07:30] LABS: Coronavirus 19, PCR Not Detected (NotDetected); Influenza A, PCR Not Detected (NotDetected); Influenza B, PCR Not Detected (NotDetected)
[2024-02-11] MEDS: IBUPROFEN 400 MG TABLET 800 MG PO (07:32)
[2024-02-11] MEDS: ONDANSETRON 4MG ODT 4 MG SL (07:33)
[2024-02-11] MEDS: ACETAMINOPHEN 500MG TAB 1000 MG PO (07:33)
[2024-02-11] MEDS: LACTATED RINGERS 1000ML 1,000 ML 999 ML IV (07:34)
[2024-02-11 07:54] LABS: Basophils # 0.1 K/mm3 (0-0.2); Basophils % 0.3 % (0.1-2.0); Eosinophils % 0.3 % (0.1-12.0); Hematocrit 36.3 % (37.0-47.0); Hemoglobin 12.1 g/dL (12.2-16.2); Lymphocytes # 1.9 K/mm3 (0.7-4.5); Lymphocytes % 12.3 % (10-50); Mean Corpuscular HGB Conc 33.3 g/dL (31.8-35.4); Mean Corpuscular Hemoglobin 29.8 pg (27.0-31.2); Mean Corpuscular Volume 89.4 fl (81-99); Mean Platelet Volume 9.7 fl (7.4-10.4); Monocytes # 1.2 K/mm3 (0.1-1.0); Monocytes % 7.9 % (1.7-9.3); Neutrophils # 12.2 K/mm3 (1.8-7.8); Neutrophils % 78.7 % (37.0-80.0); Platelet Count 287 K/mm3 (142-424); Red Blood Count 4.06 M/mm3 (4.20-5.40); Red Cell Distribution Width 12.5 % (11.5-17.5); White Blood Count 15.5 K/mm3 (4.8-10.8)
--- NOTE | 2024-02-11 08:00 | PC.NURSE ---
pt ambulatory to bathroom to provide urine sample.
[2024-02-11 08:04] LABS: MANUAL DIFFERENTIAL MANUAL DIFFERENTIAL (MANUAL DIFF)
[2024-02-11 08:05] LABS: Alanine Aminotransferase 35 U/L (12-78); Albumin/Globulin Ratio 1.4 (1.1-1.8); Alkaline Phosphatase 125 U/L (38-126); Anion Gap 12.7 mEq/L (5-15); Aspartate Amino Transferase 31 U/L (14-36); Bilirubin,Total 0.6 mg/dl (0.2-1.3); Blood Urea Nitrogen 8 mg/dl (7-17); Calcium 9.2 mg/dl (8.4-10.2); Carbon Dioxide 23 mmol/L (22.0-30.0); Chloride 103 mmol/L (98-107); Creatine Kinase 33 U/L (30-135); Creatinine Clearance Estimated 131 mL/min (50-200); Estimated Glomerular Filt Rate 90 ml/min (>60); GFR (African American) 109 ML/MIN (>60); Globulin 2.9 g/dL (1.3-3.2); Glucose 103 mg/dl (74-100); Lipase 53 U/L (23-300); Potassium 3.7 mmoL/L (3.5-5.1); Sodium 135 mmol/L (136-145); Total Protein,Serum 6.9 g/dl (6.3-8.2)
[2024-02-11 08:06] LABS: Microscopic, Urine URINE MICROSCOPIC (MICROSCOPIC)
--- NOTE | 2024-02-11 08:21 | PC.NURSE ---
pt given water bottle at this time, no other needs voiced.
[2024-02-11 08:30] LABS: Appearance,Urine CLEAR (Clear); Bilirubin,Urine Negative (Negative); Blood, Urine 1+ (Negative); Color,Urine YELLOW (Yellow); Glucose,Urine (UA) Negative (Negative); Ketones,Urine Negative (Negative); Leukocyte Esterase,Urine Negative (Negative); Nitrate,Urine POSITIVE (Negative); PH,Urine 6.5 (5.0-8.5); Protein,Urine TRACE (Negative)
[2024-02-11 08:56] LABS: Bacteria,Urine Trace /lpf
--- NOTE | 2024-02-11 08:58 | CT_ITS ---
PROCEDURE INFORMATION: Exam: CT Abdomen And Pelvis Without Contrast Exam date and time: 02/11/2024 9:42 AM Age: 48 years old Clinical indication: Abdominal pain; Localized; Left; Additional info: UTI, L back pain TECHNIQUE: Imaging protocol: Computed tomography of the abdomen and pelvis without contrast. Radiation optimization: All CT scans at this facility use at least one of these dose optimization techniques: automated exposure control; mA and/or kV adjustment per patient size (includes targeted exams where dose is matched to clinical indication); or iterative reconstruction. COMPARISON: CT ABDOMEN PELVIS W CON 05/13/2022 3:43 AM FINDINGS: Liver: Normal. No mass. Gallbladder and biliary ducts: Cholecystectomy Pancreas: Normal. No ductal dilation. Spleen: Normal. No splenomegaly. Adrenal glands: Normal. No mass. Kidneys and ureters: 7.8 mm nonobstructing left renal calculus. The left kidney is edematous. There is no ureteral calculus. This could represent recent passage of a ureteral calculus . Differential includes pyelonephritis in the appropriate clinical setting. Stomach and bowel: Unremarkable. No obstruction. No mucosal thickening. Appendix: Normal appendix Intraperitoneal space: Unremarkable. No free air. No significant fluid collection. Vasculature: Unremarkable. No abdominal aortic aneurysm. Lymph nodes: Multiple small nodes in the left para-aortic region no pathologic sized nodes. Urinary bladder: Unremarkable as visualized. Reproductive: Surgical resection of the uterus Bones/joints: Unremarkable. No acute fracture. Soft tissues: Unremarkable. IMPRESSION: The left kidney is edematous. There is no ureteral calculus. This could represent recent passage of a ureteral calculus . Differential includes pyelonephritis in the appropriate clinical setting.
[2024-02-11] MEDS: MORPHINE 4MG/ML SYRINGE 4 MG IV (09:25)
[2024-02-11] MEDS: LEVOFLOXACIN/D5W 750 MG/150 ML 750 MG/150 ML PIGGYBACK 100 MG IV (09:26)
[2024-02-11 09:55] LABS: Lymphocytes % 18 % (10-50); Monocytes % 3 % (2-9); Neutrophils % 79 % (42-76); RBC Morphology Normal; Total Cells Counted 100
[2024-02-11 09:56] LABS: Platelet Estimate Normal
--- NOTE | 2024-02-11 11:38 | PC.NURSE ---
speaking with [facility]
--- NOTE | 2024-02-11 11:47 | PC.NURSE ---
report called to jos on second floor
--- NOTE | 2024-02-11 12:20 | PC.NURSE ---
arrived by w/c from ED
[2024-02-11] MEDS: HYDROCODONE/APAP 5/325 MG TABLET 1 TAB PO ×2 (13:49→20:00)
--- NOTE | 2024-02-11 19:54 | P.HP_ITS ---
History of Present Illness *Admission Date: 02/11/24 *Reason for visit:: Not feeling well *History of present illness: Caroline Marie is a 48-year-old female with a medical history significant for MDR UTI who presents with nausea/vomiting, body aches, headache ongoing for the past 5 days. She complains of left-sided flank pain. Workup in the ED significant for tachycardia, WBC 15.5, UA strongly suggesting UTI, and CT abdomen/pelvis strongly suggesting left pyelonephritis. Case discussed with ED provider and decision made to admit patient for sepsis secondary to pyelonephritis. [facility] Disclaimer: The information contained in this section may have been updated after the patient was seen, as this information can be updated by other users. Medical History TMJ (dislocation of temporomandibular joint) Tinnitus Depression Surgical History History of carpal tunnel release Family History Other Coronary artery disease Social History Smoking Status: Current every day smoker tobacco type: cigarettes packs per day: 2 second hand exposure: No alcohol intake: never substance use type: denies use current occupational status: disabled Travel in the last 8 weeks: None household members: other housing: assisted living facility current occupational exposures/hazards: No caffeine: Yes Have you lived/traveled outside US in past 30 days?: No Contact w/someone who lives/traveled outside US past 30 days?: No Exposure to someone with infectious disease in past 14 days?: No Do you have a fever (greater than 100.4 F or 38 C)?: No Have you tested positive for COVID-19: No Exposed to someone with COVID-19 in past 14 days?: No Do you have a sore throat?: No Do you have a cough?: No Do you have any weakness?: No Do you have any diarrhea?: No Are you experiencing any unusual bleeding?: No Do you have any muscle aches/pain?: No Do you have any abdominal pain?: No Are you experiencing loss of taste or smell?: No Other Medical History Have you received the Flu Vaccine for this season: No Have you received the Pneumonia Vaccine: No Meds Home Medications and Allergies New Prescriptions to Start Prescriptions: Allergies Allergy/AdvReac Type Severity Reaction Status Date / Time Penicillins Allergy Intermediate Unknown Verified 02/11/24 07:26 allergy reaction codeine Allergy Unknown Verified 02/11/24 07:26 allergy reaction ketorolac (From Toradol) AdvReac Mild patient Verified 02/11/24 07:26 states it causes her to sneeze Exam Data for Last 24 hours Vital signs and Labs for Last 24 Hours: Temp Pulse Resp BP Pulse Ox O2 Del Method 98.3 F 86 20 130/47 L 93 L Room Air 02/11/24 15:51 02/11/24 15:51 02/11/24 15:51 02/11/24 15:51 02/11/24 15:51 02/11/24 18:40 Laboratory Results - last 24 hr 02/11/24 07:14: SARS-CoV-2 (PCR) Not detected, Influenza A Untype (PCR) Not detected, Influenza Type B (PCR) Not detected 02/11/24 07:35: WBC 15.5 H, RBC 4.06 L, Hgb 12.1 L, Hct 36.3 L, MCV 89.4, MCH 29.8, MCHC 33.3, RDW 12.5, Plt Count 287, MPV 9.7, Neut % (Auto) 78.7, Lymph % (Auto) 12.3, [place] % (Auto) 7.9, Eos % (Auto) 0.3, Baso % (Auto) 0.3, Neut # (Auto) 12.2 H, Lymph # (Auto) 1.9, [place] # (Auto) 1.2 H, Eos # (Auto) 0.0, Baso # (Auto) 0.1, Total Counted 100, Neutrophils % (Manual) 79 H, Lymphocytes % (Manual) 18, Monocytes % (Manual) 3, Platelet Estimate Normal, RBC Morphology Normal, Sodium 135 L, Potassium 3.7, Chloride 103, Carbon Dioxide 23, Anion Gap 12.7, BUN 8, Creatinine 0.70, Estimated Creat Clear 131, Estimated GFR 90, Est GFR ( Amer) 109, Glucose 103 H, Calcium 9.2, Total Bilirubin 0.6, AST 31, ALT 35, Alkaline Phosphatase 125, Total Creatine Kinase 33, Total Protein 6.9, Albumin 4.0, Globulin 2.9, Albumin/Globulin Ratio 1.4, Lipase 53 02/11/24 08:00: Urine Color Yellow, Urine Appearance Clear, Urine pH 6.5, Ur Specific [place] 1.020, Urine Protein Trace, Urine Glucose (UA) Negative, Urine Ketones Negative, Urine Blood 1+ A, Urine Nitrate Positive A, Urine Bilirubin Negative, Urine Urobilinogen 1.0, Ur Leukocyte Esterase Negative, Urine RBC None, Urine WBC 10-20, Ur Squamous Epith Cells 3-5, Urine Bacteria Trace I & O for Last 24 hours: Intake & Output 02/08/24 02/09/24 02/10/24 02/11/24 23:59 23:59 23:59 23:59 Intake Total 720 / 720 Output Total 0 / 0 Balance 720 / 720 Weight 82.554 kg Constitutional Constitutional: no acute distress *Routine HEENT Exam Head: Present normocephalic Eye: Present EOMI and PERRL ENT: Present mucous membranes moist *Routine Neck Exam Neck: Present supple; Absent lymphadenopathy *Routine Respiratory Exam Respiratory: Absent accessory muscle use *Routine Cardiovascular Exam Cardiovascular: Absent other *Routine Abdominal Exam Abdominal: Present soft and normoactive bowel sounds; Absent tenderness *Routine Rectal Exam Rectal:: deferred *Routine Genitalia Exam Genitalia:: deferred *Routine Extremities Exam Extremities: Absent cyanosis, clubbing or edema *Routine Skin Exam Skin: Present warm; Absent rash *Routine Neurological Exam Neurological: Present alert and oriented X3 Assessment and Plan *Assessment and plan (1) Pyelonephritis: Status: Acute Category: Medical Code(s): N12 - Tubulo-interstitial nephritis, not specified as acute or chronic (2) Sepsis secondary to UTI: Status: Acute Category: Medical Code(s): A41.9 - Sepsis, unspecified organism; N39.0 - Urinary tract infection, site not specified Plan Caroline Marie is a 48-year-old female with a medical history significant for MDR UTI who presents with nausea/vomiting, body aches, headache ongoing for the past 5 days. She complains of left-sided flank pain. Workup in the ED significant for tachycardia, WBC 15.5, UA strongly suggesting UTI, and CT abdomen/pelvis strongly suggesting left pyelonephritis. Case discussed with ED provider and decision made to admit patient for sepsis secondary to pyelonephritis. #Sepsis #Pyelonephritis - Tachycardia, WBC 15.5, UA strongly suggesting UTI, and CT abdomen/pelvis strongly suggesting left pyelonephritis. ? 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 ? Started IV ertapenem day 1, as this will be easier to dose on an outpatient basis if urine culture again shows ESBL. ? Follow-up urine culture, blood cultures. ? Received 2 L sepsis bolus in the ED. ? [place] as needed for flank pain. Avoid NSAIDs in the setting of pyelonephritis. Full code DVT prophylaxis: Lovenox 40 mg
[2024-02-11] MEDS: ERTAPENEM SODIUM 1 GM in 0.9 % SODIUM CHLORIDE 50 ML IV (20:25)
[2024-02-12] MEDS: ACETAMINOPHEN 325MG TAB 650 MG PO ×2 (01:12→12:41)
[2024-02-12 03:57] VITALS: BP 114/62; PULSE 77; RESP 18; TEMP 36.9; O2SAT 98
[2024-02-12 03:59] VITALS: BMI 29.9
[2024-02-12] MEDS: HYDROCODONE/APAP 5/325 MG TABLET 1 TAB PO ×2 (04:10→19:48)
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
[2024-02-12 07:38] LABS: Basophils # 0.1 K/mm3 (0-0.2); Basophils % 0.5 % (0.1-2.0); Eosinophils # 0.2 K/mm3 (0.0-0.4); Eosinophils % 1.4 % (0.1-12.0); Hematocrit 33.9 % (37.0-47.0); Hemoglobin 11.1 g/dL (12.2-16.2); Lymphocytes # 3.2 K/mm3 (0.7-4.5); Lymphocytes % 29.7 % (10-50); Mean Corpuscular HGB Conc 32.7 g/dL (31.8-35.4); Mean Corpuscular Hemoglobin 29.7 pg (27.0-31.2); Mean Corpuscular Volume 90.6 fl (81-99); Mean Platelet Volume 9.6 fl (7.4-10.4); Monocytes % 9.6 % (1.7-9.3); Neutrophils # 6.4 K/mm3 (1.8-7.8); Neutrophils % 58.4 % (37.0-80.0); Platelet Count 325 K/mm3 (142-424); Red Blood Count 3.74 M/mm3 (4.20-5.40); Red Cell Distribution Width 12.6 % (11.5-17.5); White Blood Count 10.9 K/mm3 (4.8-10.8)
[2024-02-12 07:59] LABS: Alanine Aminotransferase 84 U/L (12-78); Albumin Level 3.2 g/dl (3.5-5.0); Albumin/Globulin Ratio 1.2 (1.1-1.8); Alkaline Phosphatase 130 U/L (38-126); Anion Gap 8.2 mEq/L (5-15); Aspartate Amino Transferase 50 U/L (14-36); Bilirubin,Total 0.3 mg/dl (0.2-1.3); Blood Urea Nitrogen 12 mg/dl (7-17); Calcium 8.9 mg/dl (8.4-10.2); Carbon Dioxide 26 mmol/L (22.0-30.0); Chloride 106 mmol/L (98-107); Creatinine Clearance Estimated 113 mL/min (50-200); Estimated Glomerular Filt Rate 77 ml/min (>60); GFR (African American) 93 ML/MIN (>60); Globulin 2.7 g/dL (1.3-3.2); Glucose 103 mg/dl (74-100); Magnesium 1.9 mg/dl (1.6-2.3); Potassium 4.2 mmoL/L (3.5-5.1); Sodium 136 mmol/L (136-145); Total Protein,Serum 5.9 g/dl (6.3-8.2)
[2024-02-12 08:00] VITALS: BP 129/64; PULSE 75; RESP 20; TEMP 37.1; O2SAT 100
[2024-02-12] MEDS: ENOXAPARIN 40MG/0.4ML SYRINGE 40 MG SUBCUT (10:10)
[2024-02-12 16:00] VITALS: BP 114/64; PULSE 80; RESP 16; TEMP 36.9; O2SAT 98
--- NOTE | 2024-02-12 18:38 | PC.NURSE ---
a/o x4, remains on RA. no c/o nausea this shift, she did c/o a headache once, treated per MAR. tolerating diet well. goes to the bathroom independently. call light within reach.
--- NOTE | 2024-02-12 18:51 | P.PN_ITS ---
Subjective *Date: 02/12/24 *Time: 18:51 Interval history: Patient doing a lot better than yesterday, no nausea/vomiting. Continues to have significant left CVA tenderness, but better than yesterday. Exam Data for Last 24 hours Vital signs and Labs for Last 24 Hours: Temp Pulse Resp BP Pulse Ox O2 Del Method 98.5 F 80 16 114/64 98 Room Air 02/12/24 16:00 02/12/24 16:00 02/12/24 16:00 02/12/24 16:00 02/12/24 16:00 02/12/24 18:38 Laboratory Results - last 24 hr 02/11/24 08:00: Urine Color Yellow, Urine Appearance Clear, Urine pH 6.5, Ur Specific [place] 1.020, Urine Protein Trace, Urine Glucose (UA) Negative, Urine Ketones Negative, Urine Blood 1+ A, Urine Nitrate Positive A, Urine Bilirubin Negative, Urine Urobilinogen 1.0, Ur Leukocyte Esterase Negative, Urine RBC None, Urine WBC 10-20, Ur Squamous Epith Cells 3-5, Urine Bacteria Trace 02/12/24 07:12: WBC 10.9 H D, RBC 3.74 L, Hgb 11.1 L, Hct 33.9 L, MCV 90.6, MCH 29.7, MCHC 32.7, RDW 12.6, Plt Count 325, MPV 9.6, Neut % (Auto) 58.4, Lymph % (Auto) 29.7, [place] % (Auto) 9.6 H, Eos % (Auto) 1.4, Baso % (Auto) 0.5, Neut # (Auto) 6.4, Lymph # (Auto) 3.2, [place] # (Auto) 1.0, Eos # (Auto) 0.2, Baso # (Auto) 0.1, Sodium 136, Potassium 4.2, Chloride 106, Carbon Dioxide 26, Anion Gap 8.2, BUN 12 D, Creatinine 0.80, Estimated Creat Clear 113, Estimated GFR 77, Est GFR ( Amer) 93, Glucose 103 H, Calcium 8.9, Magnesium 1.9, Total Bilirubin 0.3, AST 50 H D, ALT 84 H D, Alkaline Phosphatase 130 H, Total Protein 5.9 L, Albumin 3.2 L D, Globulin 2.7, Albumin/Globulin Ratio 1.2 I & O for Last 24 hours: Intake & Output 02/09/24 02/10/24 02/11/24 02/12/24 23:59 23:59 23:59 23:59 Intake Total 720 / 1020 1220 / 1220 Output Total 0 / 0 Balance 720 / 1020 1220 / 1220 Weight 82.554 kg 81.647 kg Microbiology Reports for the Last 24 Hours: Microbiology 02/11/24 09:05 Blood Blood Culture - Preliminary NO GROWTH AFTER 24 HOURS 02/11/24 09:09 Blood Blood Culture - Preliminary NO GROWTH AFTER 24 HOURS 02/11/24 08:00 Urine,Clean Catch Urine Culture - Preliminary Gram Negative Rods Constitutional Constitutional: no acute distress *Routine HEENT Exam Head: Present normocephalic Eye: Present EOMI and PERRL ENT: Present mucous membranes moist *Routine Neck Exam Neck: Present supple; Absent lymphadenopathy *Routine Respiratory Exam Respiratory: Present CTA bilaterally *Routine Cardiovascular Exam Cardiovascular: Present RRR *Routine Abdominal Exam Abdominal: Present soft and normoactive bowel sounds; Absent tenderness Comments: Left CVA tenderness. *Routine Extremities Exam Extremities: Absent cyanosis, clubbing or edema *Routine Skin Exam Skin: Present warm; Absent rash *Routine Neurological Exam Neurological: Present alert and oriented X3 Assessment and Plan *Assessment and plan (1) Pyelonephritis: Status: Acute Category: Medical Code(s): N12 - Tubulo-interstitial nephritis, not specified as acute or chronic (2) Sepsis secondary to UTI: Status: Acute Category: Medical Code(s): A41.9 - Sepsis, unspecified organism; N39.0 - Urinary tract infection, site not specified Plan Caroline Marie is a 48-year-old female with a medical history significant for MDR UTI who presents with nausea/vomiting, body aches, headache ongoing for the past 5 days. She complains of left-sided flank pain. Workup in the ED significant for tachycardia, WBC 15.5, UA strongly suggesting UTI, and CT abdomen/pelvis strongly suggesting left pyelonephritis. Case discussed with ED provider and decision made to admit patient for sepsis secondary to pyelonephritis. #Sepsis #Pyelonephritis - Tachycardia, WBC 15.5, UA strongly suggesting UTI, and CT abdomen/pelvis strongly suggesting left pyelonephritis. ? 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 ? IV ertapenem day 2, as this will be easier to dose on an outpatient basis if urine culture again shows ESBL. ? WBC improved to 10.9, peaked at 15.5. ? Patient is continues to have significant left-sided CVA tenderness, pain but better than yesterday. If continues to have significant left CVA tenderness, consider repeat CT to evaluate for abscess. ? Follow-up urine culture, blood cultures. ? [place] as needed for flank pain. Avoid NSAIDs in the setting of pyelonephritis. Full code DVT prophylaxis: Lovenox 40 mg
[2024-02-12 20:00] VITALS: BP 119/75; PULSE 70; RESP 16; TEMP 36.8; O2SAT 98
[2024-02-12] MEDS: ERTAPENEM SODIUM 1 GM in 0.9 % SODIUM CHLORIDE 50 ML IV (20:36)
[2024-02-13] MEDS: HYDROCODONE/APAP 5/325 MG TABLET 1 TAB PO (01:54)
[2024-02-13 04:00] VITALS: BP 129/75; PULSE 88; RESP 16; TEMP 36.7; O2SAT 97; BMI 30.6
--- NOTE | 2024-02-13 04:13 | PC.NURSE ---
48 yo fe pt has been A/O X 4 She has been medicated X 2 this shift for pain, one to left abdomen and one for headache. Pt pulled IV out from R-AC, restarted to left hand. VS WNL for pt. She is voiding adeq amounts without diffi
[2024-02-13] MEDS: IBUPROFEN 400 MG TABLET PO (05:29)
[2024-02-13 08:00] VITALS: BP 123/67; PULSE 78; RESP 16; TEMP 36.9; O2SAT 94
[2024-02-13] MEDS: HYDROCODONE/APAP 5/325 MG TABLET 2 TAB PO (08:06)
[2024-02-13] MEDS: ENOXAPARIN 40MG/0.4ML SYRINGE 40 MG SUBCUT (08:06)
[2024-02-13 08:42] LABS: Basophils # 0.1 K/mm3 (0-0.2); Basophils % 0.6 % (0.1-2.0); Eosinophils # 0.2 K/mm3 (0.0-0.4); Eosinophils % 1.8 % (0.1-12.0); Hematocrit 35.2 % (37.0-47.0); Hemoglobin 11.6 g/dL (12.2-16.2); Lymphocytes # 2.8 K/mm3 (0.7-4.5); Lymphocytes % 31.5 % (10-50); Mean Corpuscular Hemoglobin 29.8 pg (27.0-31.2); Mean Corpuscular Volume 90.5 fl (81-99); Mean Platelet Volume 9.5 fl (7.4-10.4); Monocytes # 0.6 K/mm3 (0.1-1.0); Monocytes % 6.7 % (1.7-9.3); Neutrophils # 5.3 K/mm3 (1.8-7.8); Platelet Count 348 K/mm3 (142-424); Red Blood Count 3.89 M/mm3 (4.20-5.40); Red Cell Distribution Width 12.5 % (11.5-17.5); White Blood Count 8.9 K/mm3 (4.8-10.8)
[2024-02-13 08:52] LABS: Alanine Aminotransferase 67 U/L (12-78); Albumin Level 3.5 g/dl (3.5-5.0); Albumin/Globulin Ratio 1.3 (1.1-1.8); Alkaline Phosphatase 134 U/L (38-126); Anion Gap 9.9 mEq/L (5-15); Aspartate Amino Transferase 42 U/L (14-36); Bilirubin,Total 0.4 mg/dl (0.2-1.3); Blood Urea Nitrogen 14 mg/dl (7-17); Calcium 9.2 mg/dl (8.4-10.2); Carbon Dioxide 24 mmol/L (22.0-30.0); Chloride 108 mmol/L (98-107); Creatinine Clearance Estimated 116 mL/min (50-200); Estimated Glomerular Filt Rate 77 ml/min (>60); GFR (African American) 93 ML/MIN (>60); Globulin 2.8 g/dL (1.3-3.2); Glucose 128 mg/dl (74-100); Magnesium 1.9 mg/dl (1.6-2.3); Potassium 3.9 mmoL/L (3.5-5.1); Sodium 138 mmol/L (136-145); Total Protein,Serum 6.3 g/dl (6.3-8.2)
--- NOTE | 2024-02-13 14:00 | SW/DCPLANNER ---
Addendum entered by Katherine Valladares 02/14/24 15:21: Due to patient not having transportation to outpatient IV antibiotics today I have contact EMS for transportation via [facility]. Original Note: Spoke with patient reguarding her iv antibiotics and coming back as an outpatient and patient stated that she is able to do that and will get her best friend to bring her here. Shaunna Goff
[2024-02-13] MEDS: ERTAPENEM SODIUM 1 GM in 0.9 % SODIUM CHLORIDE 50 ML IV (15:51)
--- NOTE | 2024-02-13 16:08 | P.DS_ITS ---
General Admission date:: 02/11/24 Discharge date: 02/13/24 HPI HPI HPI: Caroline Marie is a 48-year-old female with a medical history significant for MDR UTI who presents with nausea/vomiting, body aches, headache ongoing for the past 5 days. She complains of left-sided flank pain. Workup in the ED significant for tachycardia, WBC 15.5, UA strongly suggesting UTI, and CT abdomen/pelvis strongly suggesting left pyelonephritis. Case discussed with ED provider and decision made to admit patient for sepsis secondary to pyelonephritis. Hospital Course Hospital Course Hospital Course: Caroline Marie is a 48-year-old female with a medical history significant for MDR UTI who presents with nausea/vomiting, body aches, headache ongoing for the past 5 days. She complains of left-sided flank pain. Workup in the ED significant for tachycardia, WBC 15.5, UA strongly suggesting UTI, and CT abdomen/pelvis str ongly suggesting left pyelonephritis. Case discussed with ED provider and decision made to admit patient for sepsis secondary to pyelonephritis. Found to have ESBL E. coli causing her pyelonephritis. Symptoms defervesced. Blood cultures remain negative. Midline placed. Will treat with 10 days of Invanz. Stable to discharge home, to return to outpatient infusion for continued therapy. Problems addressed as follows: #Sepsis #Pyelonephritis # ESBL UTI - Tachycardia, WBC 15.5, UA strongly suggesting UTI, and CT abdomen/pelvis strongly suggesting left pyelonephritis. 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 Initiated on IV or ertapenem. Treated with 2 doses during admission. Urine culture returned positive for E. coli sensitive to Invanz. White count normalized to 9. Kidney function normal with BUN 14, creatinine 0.8. Midline placed on day of discharge. Will have patient return as an outpatient to infusion patient necessitating 8 more doses. Okay to remove midline after completing last dose. Continue Tylenol or ibuprofen for pain. Obesity complicates all aspects of her care Total time spent on discharge 34 minutes in counseling, documentation, chart review, and direct care with patient. Exam Data for Last 24 hours Vital signs and Labs for Last 24 Hours: Temp Pulse Resp BP Pulse Ox O2 Del Method 98.5 F 78 16 123/67 94 L Room Air 02/13/24 08:00 02/13/24 08:00 02/13/24 08:00 02/13/24 08:00 02/13/24 08:00 02/13/24 15:00 Laboratory Results - last 24 hr 02/13/24 08:35: WBC 8.9, RBC 3.89 L, Hgb 11.6 L, Hct 35.2 L, MCV 90.5, MCH 29.8, MCHC 33.0, RDW 12.5, Plt Count 348, MPV 9.5, Neut % (Auto) 59.0, Lymph % (Auto) 31.5, [place] % (Auto) 6.7, Eos % (Auto) 1.8, Baso % (Auto) 0.6, Neut # (Auto) 5.3, Lymph # (Auto) 2.8, [place] # (Auto) 0.6, Eos # (Auto) 0.2, Baso # (Auto) 0.1, Sodium 138, Potassium 3.9, Chloride 108 H, Carbon Dioxide 24, Anion Gap 9.9, BUN 14, Creatinine 0.80, Estimated Creat Clear 116, Estimated GFR 77, Est GFR ( Amer) 93, Glucose 128 H, Calcium 9.2, Magnesium 1.9, Total Bilirubin 0.4, AST 42 H, ALT 67, Alkaline Phosphatase 134 H, Total Protein 6.3, Albumin 3.5, Globulin 2.8, Albumin/Globulin Ratio 1.3 I & O for Last 24 hours: Intake & Output 02/10/24 02/11/24 02/12/24 02/13/24 23:59 23:59 23:59 23:59 Intake Total 720 / 1020 1220 / 1270 890 / 890 Output Total 0 / 0 0 / 0 0 / 0 Balance 720 / 1020 1220 / 1270 890 / 890 Weight 82.554 kg 81.647 kg 83.325 kg Microbiology Reports for the Last 24 Hours: Microbiology 02/11/24 09:05 Blood Blood Culture - Preliminary NO GROWTH AFTER 48 HOURS 02/11/24 09:09 Blood Blood Culture - Preliminary NO GROWTH AFTER 48 HOURS 02/11/24 08:00 Urine,Clean Catch Urine Culture - Final Escherichia coli Constitutional Constitutional: no acute distress, obese and chronically ill appearing *Routine HEENT Exam Head: Present normocephalic Eye: Present EOMI and PERRL ENT: Present mucous membranes moist *Routine Neck Exam Neck: Present supple; Absent lymphadenopathy *Routine Respiratory Exam Respiratory: Present CTA bilaterally; Absent rhonchi, wheezes or crackles *Routine Cardiovascular Exam Cardiovascular: Present RRR *Routine Abdominal Exam Abdominal: Present soft, normoactive bowel sounds and tenderness (Minimal in rig ht side) Comments: Left CVA tenderness. *Routine Rectal Exam Patient deferred: visual exam *Routine Exam Patient deferred: external exam *Routine Extremities Exam Extremities: Absent cyanosis, clubbing or edema Routine Back/Spine/Pelvis Exam Back/Spine: Present CVA tenderness (Improving, right side) *Routine Skin Exam Skin: Present warm; Absent rash *Routine Neurological Exam Neurological: Present alert, oriented X3 and moving all extremities; Absent altered mental status Results Data Completed and Pending Labs on day of discharge: Labs from last 24 hours 02/13/24 08:35 WBC 8.9 RBC 3.89 L Hgb 11.6 L Hct 35.2 L MCV 90.5 MCH 29.8 MCHC 33.0 RDW 12.5 Plt Count 348 MPV 9.5 Neut % (Auto) 59.0 Lymph % (Auto) 31.5 [place] % (Auto) 6.7 Eos % (Auto) 1.8 Baso % (Auto) 0.6 Neut # (Auto) 5.3 Lymph # (Auto) 2.8 [place] # (Auto) 0.6 Eos # (Auto) 0.2 Baso # (Auto) 0.1 Sodium 138 Potassium 3.9 Chloride 108 H Carbon Dioxide 24 Anion Gap 9.9 BUN 14 Creatinine 0.80 Estimated Creat Clear 116 Estimated GFR 77 Est GFR ( Amer) 93 Glucose 128 H Calcium 9.2 Magnesium 1.9 Total Bilirubin 0.4 AST 42 H ALT 67 Alkaline Phosphatase 134 H Total Protein 6.3 Albumin 3.5 Globulin 2.8 Albumin/Globulin Ratio 1.3 Preliminary micro results at discharge 02/11/24 09:05 Blood Culture - Preliminary Blood NO GROWTH AFTER 48 HOURS 02/11/24 09:09 Blood Culture - Preliminary Blood NO GROWTH AFTER 48 HOURS DS: Diagnosis Discharge Diagnosis (1) Pyelonephritis: Status: Acute Code(s): N12 - Tubulo-interstitial nephritis, not specified as acute or chronic (2) Infection due to ESBL-producing Escherichia coli: Status: Acute Code(s): A49.8 - Other bacterial infections of unspecified site; Z16.12 - Extended spectrum beta lactamase (ESBL) resistance (3) Sepsis secondary to UTI: Status: Acute Code(s): A41.9 - Sepsis, unspecified organism; N39.0 - Urinary tract infection, site not specified (4) Obesity (BMI 30.0-34.9): Status: Chronic Code(s): E66.811 - Obesity, class 1 Meds Home Medications and Allergies Home Medications ?Medication ?Instructions ?Recorded ?Confirmed ?Type Ertapenem Sodium [Invanz 1gm Vial] 100 mls/hr IV Q24H 02/13/24 Rx 1 gm New Prescriptions to Start Prescriptions: Ertapenem Sodium [Invanz 1gm Vial] 1 gm 0.9 % Sodium Chloride [Sod Chlor 0.9% 50mL bag] 50 ml 100 mls/hr IV Q24H Allergies Allergy/AdvReac Type Severity Reaction Status Date / Time Penicillins Allergy Intermediate Unknown Verified 02/11/24 07:26 allergy reaction codeine Allergy Unknown Verified 02/11/24 07:26 allergy reaction ketorolac (From Toradol) AdvReac Mild patient Verified 02/11/24 07:26 states it causes her to sneeze Discharge Plan Disposition Patient Disposition: Home, Self-Care Condition: Good Follow up Plan Follow up with: Gavino Vallejo DO [Primary Care Provider] - 02/20/24 10:45 am Prescriptions/Medication Reconciliation: New Ertapenem Sodium [Invanz 1gm Vial] 1 GM 0.9 % Sodium Chloride [Sod Chlor 0.9% 50mL bag] 50 ML 100 mls/hr IV Q24H Ordered By: Tj Toro MD Last Taken: 02/13/24 15:51 100 mls/hr Problem Reconciliation Problems Reviewed?: Yes Patient Discharge Instructions ACTIVITY: Continue current activity DIET: continue same diet Patient Instructions: Urinary Tract Infection, Kidney Infection Print Language: Persian Providers Primary Care Provider: Gavino Vallejo Admit Provider: Gavino Pagan Attending Provider: Gavino Pagan
== END 2024-02-13 16:50 | disposition home or self-care (01) ==
LOC: ER 08:02 → 2ND 11:44
PROVIDERS: Admitting Provider Student in an Organized Health Care Education/Training Program; Emergency Provider Emergency Medicine; PCP Internal Medicine; Visit Provider Student in an Organized Health Care Education/Training Program
DX: A41.51 Sepsis due to Escherichia coli [E. coli] (principal); N16 Renal tubulo-interstitial disorders in diseases classified elsewhere; E66.9 Obesity, unspecified; F17.210 Nicotine dependence, cigarettes, uncomplicated; Z16.12 Extended spectrum beta lactamase (ESBL) resistance; Z68.30 Body mass index [BMI] 30.0-30.9, adult
CPT/HCPCS: 36410; 36415; 74176; 80053; 81001; 82550; 83690; 83735; 85007; 85025; 85027; 87040; 87086; 87088; 87186; 87636; 99291; G0378; J1335; J1650; J1956; J2270; J7120; Q0162

== ENCOUNTER 2024-02-14 15:47 | Outpatient (CLI) | payer MEDICAID, SELFPAY ==
[2024-02-14] MEDS: ERTAPENEM SODIUM 1 GM in 0.9 % SODIUM CHLORIDE 50 ML IV (16:18)
[2024-02-14] MEDS: SODIUM CHLORIDE 0.9% 10ML FLUSH SYRINGE 10 ML IV (16:19)
[2024-02-14] MEDS: 0.9 % SODIUM CHLORIDE 50 ML IV (16:19)
[2024-02-14 16:21] VITALS: BP 138/80; PULSE 84; RESP 20; TEMP 36.4; O2SAT 96
[2024-02-14 16:52] VITALS: BP 147/70; PULSE 78; RESP 20; O2SAT 98
== END 2024-02-14 16:57 | disposition home or self-care (01) ==
LOC: INF 15:47
PROVIDERS: Visit Provider Internal Medicine Adolescent Medicine
DX: N39.0 Urinary tract infection, site not specified (principal); Z16.12 Extended spectrum beta lactamase (ESBL) resistance
CPT/HCPCS: 96365; J1335

== ENCOUNTER 2024-02-15 09:54 | Outpatient (CLI) | payer MEDICAID, SELFPAY ==
[2024-02-15 10:08] VITALS: BP 137/86; PULSE 85; RESP 18; TEMP 37; O2SAT 98
[2024-02-15] MEDS: SODIUM CHLORIDE 0.9% 50ML BAG 50 ML IV (10:08)
[2024-02-15] MEDS: SODIUM CHLORIDE 0.9% 10ML FLUSH SYRINGE 10 ML IV (10:09)
[2024-02-15] MEDS: ERTAPENEM SODIUM 1 GM in 0.9 % SODIUM CHLORIDE 50 ML IV (10:09)
[2024-02-15 10:59] VITALS: BP 131/88; PULSE 81; RESP 18; O2SAT 98
== END 2024-02-15 11:04 | disposition home or self-care (01) ==
LOC: INF 09:55
PROVIDERS: Visit Provider Internal Medicine Adolescent Medicine
DX: N39.0 Urinary tract infection, site not specified (principal); Z16.12 Extended spectrum beta lactamase (ESBL) resistance
CPT/HCPCS: 96365; J1335

== ENCOUNTER 2024-02-16 09:31 | Outpatient (CLI) | payer MEDICAID, SELFPAY ==
[2024-02-16 09:43] VITALS: BP 142/84; PULSE 84; RESP 20; TEMP 36.9; O2SAT 99
[2024-02-16] MEDS: SODIUM CHLORIDE 0.9% 50ML BAG 50 ML IV (09:43)
[2024-02-16] MEDS: ERTAPENEM SODIUM 1 GM in 0.9 % SODIUM CHLORIDE 50 ML IV (09:43)
[2024-02-16] MEDS: SODIUM CHLORIDE 0.9% 10ML FLUSH SYRINGE 10 ML IV (09:43)
[2024-02-16 10:30] VITALS: BP 136/73; PULSE 87; RESP 20; O2SAT 99
== END 2024-02-16 10:30 | disposition home or self-care (01) ==
LOC: INF 09:32
PROVIDERS: Visit Provider Internal Medicine Adolescent Medicine
DX: N39.0 Urinary tract infection, site not specified (principal); Z16.12 Extended spectrum beta lactamase (ESBL) resistance
CPT/HCPCS: 96365; J1335

== ENCOUNTER 2024-02-17 08:31 | Outpatient (CLI) | payer MEDICAID, SELFPAY ==
[2024-02-17] MEDS: ERTAPENEM SODIUM 1 GM in 0.9 % SODIUM CHLORIDE 50 ML IV (08:50)
== END 2024-02-17 09:25 | disposition home or self-care (01) ==
LOC: INF 08:31
PROVIDERS: Visit Provider Internal Medicine Adolescent Medicine
DX: N39.0 Urinary tract infection, site not specified (principal); Z16.12 Extended spectrum beta lactamase (ESBL) resistance
CPT/HCPCS: J1335

== ENCOUNTER 2024-02-19 08:54 | Outpatient (CLI) | payer MEDICAID, SELFPAY ==
[2024-02-19 09:10] VITALS: BP 146/85; PULSE 79; RESP 18; O2SAT 100
[2024-02-19] MEDS: SODIUM CHLORIDE 0.9% 50ML BAG 50 ML IV (09:10)
[2024-02-19] MEDS: ERTAPENEM SODIUM 1 GM in 0.9 % SODIUM CHLORIDE 50 ML IV (09:10)
[2024-02-19 09:55] VITALS: BP 122/82; PULSE 79; RESP 18; O2SAT 100
== END 2024-02-19 09:55 | disposition home or self-care (01) ==
LOC: INF 08:54
PROVIDERS: Visit Provider Internal Medicine Adolescent Medicine
DX: N39.0 Urinary tract infection, site not specified (principal); Z16.12 Extended spectrum beta lactamase (ESBL) resistance
CPT/HCPCS: 96365; J1335

== ENCOUNTER 2024-02-20 09:38 | Outpatient (CLI) | payer MEDICAID, SELFPAY ==
[2024-02-20] MEDS: SODIUM CHLORIDE 0.9% 10ML FLUSH SYRINGE 10 ML IV (09:47)
[2024-02-20 09:48] VITALS: BP 119/69; PULSE 78; RESP 14; TEMP 36.6; O2SAT 98
[2024-02-20] MEDS: ERTAPENEM SODIUM 1 GM in 0.9 % SODIUM CHLORIDE 50 ML IV (09:48)
[2024-02-20] MEDS: SODIUM CHLORIDE 0.9% 50ML BAG 50 ML IV (09:48)
[2024-02-20 10:25] VITALS: BP 129/80; PULSE 85; RESP 16; TEMP 36.4; O2SAT 98
== END 2024-02-20 10:25 | disposition home or self-care (01) ==
LOC: INF 09:39
PROVIDERS: Visit Provider Internal Medicine Adolescent Medicine
DX: N39.0 Urinary tract infection, site not specified (principal); Z16.12 Extended spectrum beta lactamase (ESBL) resistance
CPT/HCPCS: 96365; J1335

== ENCOUNTER 2024-02-21 08:55 | Outpatient (CLI) | payer MEDICAID, SELFPAY ==
[2024-02-21 09:20] VITALS: BP 130/83; PULSE 68; RESP 17; O2SAT 97
[2024-02-21] MEDS: ERTAPENEM SODIUM 1 GM in 0.9 % SODIUM CHLORIDE 50 ML IV (09:20)
[2024-02-21] MEDS: SODIUM CHLORIDE 0.9% 50ML BAG 50 ML IV (09:20)
[2024-02-21 09:55] VITALS: BP 136/84; PULSE 69; RESP 17
== END 2024-02-21 10:10 | disposition home or self-care (01) ==
LOC: INF 08:55
PROVIDERS: Visit Provider Internal Medicine Adolescent Medicine
DX: N12 Tubulo-interstitial nephritis, not specified as acute or chronic (principal); N39.0 Urinary tract infection, site not specified; A41.9 Sepsis, unspecified organism
CPT/HCPCS: 96365; J1335

== ENCOUNTER 2024-02-22 07:30 | Outpatient (CLI) | payer MEDICAID, SELFPAY ==
[2024-02-22 08:19] VITALS: BP 119/69; PULSE 82; RESP 16; TEMP 36.6; O2SAT 98
[2024-02-22] MEDS: SODIUM CHLORIDE 0.9% 10ML FLUSH SYRINGE 10 ML IV (08:19)
[2024-02-22] MEDS: SODIUM CHLORIDE 0.9% 50ML BAG 50 ML IV (08:19)
[2024-02-22] MEDS: ERTAPENEM SODIUM 1 GM in 0.9 % SODIUM CHLORIDE 50 ML IV (08:19)
[2024-02-22 08:59] VITALS: BP 128/74; PULSE 79; RESP 14; TEMP 36.6; O2SAT 98
[2024-02-22] MEDS: NEOSPORIN OINTMENT 0.9GM UDP 1 EACH TP (09:00)
== END 2024-02-22 09:15 | disposition home or self-care (01) ==
LOC: INF 07:31
PROVIDERS: Visit Provider Internal Medicine Adolescent Medicine
DX: N12 Tubulo-interstitial nephritis, not specified as acute or chronic (principal); A41.9 Sepsis, unspecified organism
CPT/HCPCS: 96365; J1335

== ENCOUNTER 2024-03-04 15:20 | Outpatient (CLI) | payer MEDICAID, SELFPAY ==
[2024-03-04 19:58] LABS: 25-OH Vitamin D, Total 16.7 ng/mL (30-100)
[2024-03-04 20:01] LABS: Ferritin 11.5 ng/ml (6.24-137)
[2024-03-04 20:05] LABS: HIV Combo NEGATIVE (Negative)
[2024-03-04 20:13] LABS: Vitamin B12 180 pg/mL (239-931)
[2024-03-04 20:24] LABS: Hepatitis C Ab Qual. W/ RFX NEGATIVE (Negative)
[2024-03-04 23:48] LABS: Hemoglobin A1C 5.4 % (4.0-6.0)
== END 2024-03-04 23:59 | disposition home or self-care (01) ==
LOC: LAB.DROPOF 03-05 11:04
PROVIDERS: PCP Internal Medicine; Visit Provider Internal Medicine
DX: Z00.00 Encounter for general adult medical examination without abnormal findings (principal); D64.9 Anemia, unspecified; E55.9 Vitamin D deficiency, unspecified; E66.811 Obesity, class 1; Z68.29 Body mass index [BMI] 29.0-29.9, adult; N12 Tubulo-interstitial nephritis, not specified as acute or chronic; R39.11 Hesitancy of micturition; R11.0 Nausea; E53.8 Deficiency of other specified B group vitamins; Z13.1 Encounter for screening for diabetes mellitus; Z91.89 Other specified personal risk factors, not elsewhere classified
CPT/HCPCS: 82043; 82306; 82607; 82728; 83036; 86803; 87389

== ENCOUNTER 2024-03-27 05:21 | Emergency (ER) | payer MEDICAID, SELFPAY ==
[2024-03-27 05:21] VITALS: BP 158/120; PULSE 110; RESP 18; TEMP 36.6; O2SAT 100; BMI 28.8
--- NOTE | 2024-03-27 05:26 | CT_ITS ---
PROCEDURE INFORMATION: Exam: CT Abdomen And Pelvis With Contrast Exam date and time: 03/27/2024 6:01 AM Age: 48 years old Clinical indication: Abdominal pain; Additional info: Bilateral flank pain TECHNIQUE: Imaging protocol: Computed tomography of the abdomen and pelvis with contrast. Radiation optimization: All CT scans at this facility use at least one of these dose optimization techniques: automated exposure control; mA and/or kV adjustment per patient size (includes targeted exams where dose is matched to clinical indication); or iterative reconstruction. Contrast material: ISOVUE; Contrast volume: 75 ml; Contrast route: IV; COMPARISON: CT ABDOMEN PELVIS WO CON 02/11/2024 9:42 AM FINDINGS: Liver: Normal. No mass. Gallbladder and biliary ducts: Cholecystectomy. Pancreas: Normal. No ductal dilation. Spleen: Normal. No splenomegaly. Adrenal glands: Normal. No mass. Kidneys and ureters: 6 mm stone in the midpole of the left kidney no hydronephrosis hydroureter or urolithiasis is noted. Stomach and bowel: Unremarkable. No obstruction. No mucosal thickening. Appendix: No evidence of appendicitis. Intraperitoneal space: Unremarkable. No free air. No significant fluid collection. Vasculature: Unremarkable. No abdominal aortic aneurysm. Lymph nodes: Unremarkable. No enlarged lymph nodes. Urinary bladder: Unremarkable as visualized. Reproductive: Hysterectomy. Bones/joints: Unremarkable. No acute fracture. Soft tissues: Unremarkable. IMPRESSION: 1. Nonobstructing left-sided nephrolithiasis, no evidence of urolithiasis. 2. Hysterectomy, pelvic floor laxity. 3. Cholecystectomy.
--- NOTE | 2024-03-27 05:29 | ED_ITS ---
Discharge Plan Disposition Patient Disposition: Home, Self-Care Prescriptions Prescriptions: New methocarbamol 500 mg tablet 500 mg PO Q6H PRN (Reason: pain) Qty: 30 0RF No Action ondansetron 8 mg tablet,disintegrating 8 mg PO Q8H Qty: 90 2RF cholecalciferol (vitamin D3) 250 mcg (10,000 unit) capsule 250 mcg PO DAILY Qty: 30 3RF mecobalamin (vitamin B12) 5,000 mcg tablet,disintegrating 5,000 mcg PO DAILY 30 Days Qty: 30 3RF Activity Restrictions/Add. Instructions Additional Instructions/Restrictions: Please follow-up with your primary care provider. Please return to the emergency department if you develop any new or worsening symptoms or become concerned for your health. I sent Jonatan to clinic pharmacy. Clinical Impressions Clinical Impression: Low back pain Qualifiers: Chronicity: acute Back pain laterality: bilateral Sciatica presence: without sciatica Qualified Code(s): M54.5 - Low back pain Instructions Patient Instructions: DI for Acute Abdominal Pain Print Language Print Language: Yakut Discharge ED Provider: Gabino Perez General Adult HPI General Chief complaint: Abdominal Pain Stated complaint: Flank pain Time Seen by Provider: 03/27/24 05:25 Mode of Arrival: EMS Source of Information: Patient and EMS Limitations: No Limitations Description of Symptoms (Recalled from ER Triage Doc. by RN): PATIENT REPORTS INABILITY TO URINATE SINCE 1130 AM. STATES SHE IS HAVING SEVERE BACK PAIN BILATERALLY, WITH IT FEELING WORSE ON THE RIGHT. STATES THE BACK PAIN STARTED AROUND 1. TOOK TYLENOL AROUND 1 HR BLASTING [employer]. History of Present Illness HPI narrative: 48-year-old female with history of recent pyelonephritis requiring admission presents for back pain. He reports that it started a few hours ago. She took some Tylenol without significant improvement. She also reports some pain with urination but feels like she has not been able to pee since yesterday. Denies any fever at home. Reports pain is worse on the right, but is bilateral in nature. Denies any pain rating into the legs, denies any numbness tingling weakness in the legs. Related Data Previous Rx's ?Medication ?Instructions ?Recorded ondansetron 8 mg disintegrating 8 mg PO Q8H #90 tabs 03/04/24 tablet cholecalciferol (vitamin D3) 250 250 mcg PO DAILY #30 caps 03/05/24 mcg (10,000 unit) capsule mecobalamin (vitamin B12) 5,000 5,000 mcg PO DAILY 30 days #30 tabs 03/05/24 mcg disintegrating tablet methocarbamol 500 mg tablet 500 mg PO Q6H PRN pain #30 tabs 03/27/24 Allergies Allergy/AdvReac Type Severity Reaction Status Date / Time Penicillins Allergy Intermediate Unknown Verified 03/25/24 15:24 allergy reaction codeine Allergy Unknown Verified 03/25/24 15:24 allergy reaction ketorolac (From Toradol) AdvReac Mild patient Verified 03/25/24 15:24 states it causes her to sneeze PFSH PFSH Disclaimer: The information contained in this section may have been updated after the patient was seen, as this information can be updated by other users. Medical History TMJ (dislocation of temporomandibular joint) Tinnitus Depression Surgical History History of carpal tunnel release Family History Other Coronary artery disease Social History Smoking Status: Current every day smoker tobacco type: cigarettes packs per day: 2 second hand exposure: No alcohol intake: never substance use type: denies use current occupational status: employed and disabled Travel in the last 8 weeks: None household members: other housing: assisted living facility current occupational exposures/hazards: No caffeine: Yes Other Medical History Have you received the Flu Vaccine for this season: No Have you received the Pneumonia Vaccine: No ROS Obtained: Yes All systems reviewed & no additional complaints except as documented Physical Exam General General appearance: alert Comment: Intermittently crying Head Head exam: atraumatic and normocephalic Eye Eye exam: Present normal appearance, PERRL and EOMI ENT ENT exam: Present normal oropharynx and normal external ear exam Neck Neck exam: Present normal inspection and full ROM Chest Chest inspection: Present normal inspection and symmetric chest wall rise; Absent tenderness Respiratory Respiratory exam: Present normal lung sounds bilaterally; Absent respiratory distress Cardiovascular Cardiovascular exam: Present regular rate and normal rhythm Abdominal Exam Abdominal exam: Present soft; Absent distention, tenderness or guarding Extremities Exam Extremities exam: Present normal inspection; Absent edema or joint swelling Back Exam Back exam: Present normal inspection, tenderness, CVA tenderness (R) and CVA tenderness (L) Neurological Exam Neurological exam: Present alert and oriented X3; Absent motor sensory deficit Psychiatric Psychiatric exam: Present normal affect and normal mood Skin Skin exam: Present warm, dry and normal color Lymphatic Lymphatic Findings: no adenopathy Medical Decision Making Medical Records Medical records reviewed: Yes I reviewed the patient's medical records. Screening: Per USPSTF and CDC recommendations, given the prevalence of disease in our region, it is our hospital?s policy to screen for HIV and viral Hepatitis for all patients aged 18 and over and those with ongoing risk factors. Abelardo Inquiry Pt receiving controlled substance: No Abelardo was queried for this patient: No Vital Signs: 03/27/24 05:21 03/27/24 05:30 03/27/24 06:17 Temperature 97.9 F Temperature Source Oral Pulse Rate 73 76 Pulse Rate [Right Radial] 110 H Respiratory Rate 18 Blood Pressure 144/85 H 121/60 Blood Pressure [Right Arm] 158/120 H Blood Pressure Mean [Right Arm] 132 Blood Pressure Source [Right Arm] Automatic Cuff Blood Pressure Position [Right Arm] Supine 02 Sat by Pulse Oximetry 100 98 100 Oxygen Delivery Method Room Air 03/27/24 06:30 03/27/24 06:57 Temperature 97.9 F Temperature Source Oral Pulse Rate 75 70 Pulse Rate [Right Radial] Respiratory Rate 16 Blood Pressure 128/77 128/77 Blood Pressure [Right Arm] Blood Pressure Mean [Right Arm] Blood Pressure Source [Right Arm] Blood Pressure Position [Right Arm] 02 Sat by Pulse Oximetry 99 Oxygen Delivery Method Lab Data Lab results reviewed: Yes I reviewed the patient's lab results. Lab Results 03/27/24 05:21: WBC 11.0 H, RBC 4.82, Hgb 14.0, Hct 43.0, MCV 89.2, MCH 29.0, MCHC 32.6, RDW 12.7, Plt Count 373, MPV 9.7, Neut % (Auto) 51.0, Lymph % (Auto) 41.0, [place] % (Auto) 4.8, Eos % (Auto) 2.0, Baso % (Auto) 0.8, Neut # (Auto) 5.6, Lymph # (Auto) 4.5, [place] # (Auto) 0.5, Eos # (Auto) 0.2, Baso # (Auto) 0.1, Sodium 138, Potassium 4.3, Chloride 105, Carbon Dioxide 22, Anion Gap 15.3 H, B UN 20 H, Creatinine 1.00, Estimated Creat Clear 87, Estimated GFR 60, Est GFR ( Amer) 72, Glucose 97, Calcium 9.4, Total Bilirubin 0.3, AST 33, ALT 54, Alkaline Phosphatase 98, Total Protein 8.0 D, Albumin 5.1 H, Globulin 2.9, Albumin/Globulin Ratio 1.8, Serum HCG, Qual Negative 03/27/24 06:13: Urine Color Yellow, Urine Appearance Clear, Urine pH 6.0, Ur Specific [place] 1.010, Urine Protein Negative, Urine Glucose (UA) Negative, Urine Ketones Negative, Urine Blood Negative, Urine Nitrate Negative, Urine Bilirubin Negative, Urine Urobilinogen 0.2, Ur Leukocyte Esterase Negative, Urine RBC None, Urine WBC Occasional, Ur Squamous Epith Cells Occasional, Urine Bacteria Trace, Other Casts 3-5 03/27/24 05:21 03/27/24 05:21 Orders (Tests/Meds): ED MEDICATIONS Discontinued Medications Generic Name Dose Route Start Last Admin Trade Name Carmineq PRN Reason Stop Dose Admin Sodium Chloride 1,000 mls @ 999 mls/hr 03/27/24 05:30 03/27/24 05:32 Sod Chlor 0.9% 1000ml Bag IV 03/27/24 06:30 999 mls/hr .Q1H1M ELSA Administration Iopamidol 75 ml 03/27/24 06:07 03/27/24 06:07 Iopamidol-370 (76%);100ml Bottle IV 03/27/24 06:08 75 ml ONCE ONE Administration Methocarbamol 500 mg 03/27/24 05:26 03/27/24 05:32 Methocarbamol 500mg Tablet PO 03/27/24 05:27 500 mg ONCE ONE Administration Sodium Chloride 10 ml 03/27/24 06:07 03/27/24 06:07 Sodium Chloride 0.9% 10ml Syr (Rad Only) IV 04/26/24 06:06 10 ml NEEDED PRN Administration Maintain IV Site ORDERS Category Date Time Status CT abdomen pelvis w con Stat Cat Scan 03/27/24 05:26 Completed CBC w/Auto Diff [Complete Blood Count Auto Diff] Stat Lab 03/27/24 05:21 Completed CMP [Comprehensive Metabolic Panel] Stat Lab 03/27/24 05:21 Completed HCG Qualitative, Serum Stat Lab 03/27/24 05:21 Completed UA [Urinalysis and Microscopic] Stat Lab 03/27/24 06:13 Completed Medical Decision Narrative: 48-year-old female presents for few hours of worsening back pain, some pain with urination. History was obtained via interactive discussion with patient, EMS. On arrival, patient is [afebrile, hemodynamically stable, satting appropriately, alert, oriented x4, GCS 15], moving all extremities spontaneously. Full physical exam performed and significant for bilateral CVA tenderness Differential includes but is not limited to musculoskeletal pain, pyelonephritis, kidney stone. Patient was given Robaxin, fluid bolus for symptomatic management and correction of underlying abnormalities. Workup initiated including CBC CMP UA lipase CT abdomen pelvis with IV contrast. On re-evaluation, patient [remains afebrile, HD stable.] Reports some symptomatic improvement. Laboratory workup independently interpreted by me and significant for no significant leukocytosis, normal renal function, urine without evidence of infection Imaging independently interpreted by me and significant for no evidence of ureterolithiasis, no evidence of pyelonephritis, no fracture or significant derangement of the spine. See radiology read for full review of final results. Given patient history, exam and workup, patient's presentation most likely represents musculoskeletal back pain. No evidence of spinal cord pathology on history or exam. Patient discharged in stable condition with prescription for Robaxin. Return precautions given.. Procedures Risk/Benefits of Procedure(s) Were Explained: Yes Critical Care Critical Care Time Critical Care Time: No
[2024-03-27 05:30] VITALS: BP 144/85; PULSE 73; O2SAT 98
[2024-03-27 05:32] LABS: Basophils # 0.1 K/mm3 (0-0.2); Basophils % 0.8 % (0.1-2.0); Eosinophils # 0.2 K/mm3 (0.0-0.4); Lymphocytes # 4.5 K/mm3 (0.7-4.5); Mean Corpuscular HGB Conc 32.6 g/dL (31.8-35.4); Mean Corpuscular Volume 89.2 fl (81-99); Mean Platelet Volume 9.7 fl (7.4-10.4); Monocytes # 0.5 K/mm3 (0.1-1.0); Monocytes % 4.8 % (1.7-9.3); Neutrophils # 5.6 K/mm3 (1.8-7.8); Platelet Count 373 K/mm3 (142-424); Red Blood Count 4.82 M/mm3 (4.20-5.40); Red Cell Distribution Width 12.7 % (11.5-17.5)
[2024-03-27] MEDS: METHOCARBAMOL 500MG TABLET 500 MG PO (05:32)
[2024-03-27] MEDS: 0.9 % SODIUM CHLORIDE 1000ML 1,000 ML 999 ML IV (05:32)
[2024-03-27 05:37] LABS: Chloride 105 mmol/L (98-107)
[2024-03-27 05:38] LABS: Albumin Level 5.1 g/dl (3.5-5.0); Potassium 4.3 mmoL/L (3.5-5.1); Sodium 138 mmol/L (136-145)
[2024-03-27 05:40] LABS: Alanine Aminotransferase 54 U/L (12-78); Anion Gap 15.3 mEq/L (5-15); Aspartate Amino Transferase 33 U/L (14-36); Bilirubin,Total 0.3 mg/dl (0.2-1.3); Blood Urea Nitrogen 20 mg/dl (7-17); Carbon Dioxide 22 mmol/L (22.0-30.0); Creatinine Clearance Estimated 87 mL/min (50-200); Estimated Glomerular Filt Rate 60 ml/min (>60); GFR (African American) 72 ML/MIN (>60)
[2024-03-27 05:41] LABS: Albumin/Globulin Ratio 1.8 (1.1-1.8); Alkaline Phosphatase 98 U/L (38-126); Calcium 9.4 mg/dl (8.4-10.2); Globulin 2.9 g/dL (1.3-3.2); Glucose 97 mg/dl (74-100)
--- NOTE | 2024-03-27 05:43 | PC.NURSE ---
BLADDERSCAN DONE- 4 ML SHOWN IN BLADDER. PERFORMED BLADDER SCAN A SECOND TIME AND GOT SAME RESULTS.
[2024-03-27] MEDS: IOPAMIDOL-370 (76%);100ML BOTTLE 75 ML IV (06:07)
[2024-03-27] MEDS: SODIUM CHLORIDE 0.9% 10ML SYR (RAD ONLY) 10 ML IV (06:07)
[2024-03-27 06:17] VITALS: BP 121/60; PULSE 76; O2SAT 100
[2024-03-27 06:22] LABS: Microscopic, Urine URINE MICROSCOPIC (MICROSCOPIC)
[2024-03-27 06:23] LABS: Appearance,Urine CLEAR (Clear); Bilirubin,Urine Negative (Negative); Blood, Urine Negative (Negative); Color,Urine YELLOW (Yellow); Glucose,Urine (UA) Negative (Negative); Ketones,Urine Negative (Negative); Leukocyte Esterase,Urine Negative (Negative); Nitrate,Urine Negative (Negative); Protein,Urine Negative (Negative); Urobilinogen,Urine 0.2 EU/dl (0.2)
[2024-03-27 06:30] VITALS: BP 128/77; PULSE 75; O2SAT 99
[2024-03-27 06:40] LABS: HCG Qualitative, Serum Negative (Negative)
[2024-03-27 06:42] LABS: Bacteria,Urine Trace /lpf; Squamous Epithelial Cell,Urine Occasional #/hpf (0-5); WBC,Urine Occasional #/hpf (0-3)
[2024-03-27 06:57] VITALS: BP 128/77; PULSE 70; RESP 16; TEMP 36.6; O2SAT 100
== END 2024-03-27 07:00 | disposition home or self-care (01) ==
PROVIDERS: Emergency Provider Emergency Medicine
DX: M54.50 Low back pain, unspecified (principal); R33.9 Retention of urine, unspecified; R30.9 Painful micturition, unspecified; F17.210 Nicotine dependence, cigarettes, uncomplicated
CPT/HCPCS: 74177; 80053; 81001; 84703; 85025; 96360; 99285; J7030; Q9967

== ENCOUNTER 2024-04-03 13:28 | Outpatient (CLI) | payer MEDICAID, SELFPAY ==
--- NOTE | 2024-04-03 13:31 | XR_ITS ---
FINAL REPORT CLINICAL HISTORY: foot pain COMPARISON: 12/20/2023 FINDINGS: Three views show no evidence of acute displaced fracture or dislocation of the visualized bony architecture. There are mild degenerative changes of the midfoot. Mild calcaneal spurring is identified. IMPRESSION: Mild degenerative changes. Reviewed, Interpreted and Dictated by Elvin Castañeda MD Transcribed by Raquel Ray Authenticated and [facility]
--- NOTE | 2024-04-03 13:31 | XR_ITS ---
FINAL REPORT CLINICAL HISTORY: foot pain COMPARISON: 12/20/2023 FINDINGS: Three views show no evidence of acute displaced fracture or dislocation of the visualized bony architecture. There is mild calcaneal spurring. There are minimal degenerative changes of the midfoot. IMPRESSION: No change. Reviewed, Interpreted and Dictated by Elvin Castañeda MD Transcribed by Raquel Ray Authenticated and [facility]
== END 2024-04-03 23:59 | disposition home or self-care (01) ==
LOC: RAD 13:29
PROVIDERS: PCP Internal Medicine; Visit Provider Nurse Practitioner
DX: M79.671 Pain in right foot (principal); M79.672 Pain in left foot
CPT/HCPCS: 73630

== ENCOUNTER 2024-06-20 10:15 | Emergency (ER) | payer MEDICAID, SELFPAY ==
[2024-06-20 10:26] VITALS: BP 136/81; PULSE 79; RESP 18; TEMP 37; O2SAT 100; BMI 28.5
--- NOTE | 2024-06-20 10:29 | PC.NURSE ---
PVR 8ml
[2024-06-20 10:36] VITALS: BP 136/81; PULSE 89; O2SAT 98
[2024-06-20 10:36] LABS: Microscopic, Urine URINE MICROSCOPIC (MICROSCOPIC)
[2024-06-20] MEDS: PHENAZOPYRIDINE 200MG TABLET 200 MG PO (10:39)
[2024-06-20] MEDS: diphenhydrAMINE 50MG/ML VIAL 25 MG IV (10:40)
--- NOTE | 2024-06-20 10:40 | PC.NURSE ---
pt bladder scanned upon arrival to room, 8ml present
[2024-06-20] MEDS: KETOROLAC 30MG/ML VIAL 15 MG IV (10:41)
[2024-06-20] MEDS: ONDANSETRON 4MG/2ML VIAL 4 MG IV (10:43)
[2024-06-20] MEDS: MORPHINE 4MG/ML SYRINGE 4 MG IV (10:43)
[2024-06-20] MEDS: 0.9 % SODIUM CHLORIDE 1000ML 1,000 ML 999 ML IV (10:44)
[2024-06-20 10:46] LABS: Basophils # 0.1 K/mm3 (0-0.2); Basophils % 0.5 % (0.1-2.0); Eosinophils # 0.1 Kmm3 (0.0-0.4); Eosinophils % 0.7 % (0.1-12.0); Hematocrit 40.4 % (37.0-47.0); Hemoglobin 13.4 g/dL (12.2-16.2); Immature Granulocytes # 0.05 10^3uL; Immature Granulocytes % 0.3 %; Lymphocytes # 3.6 K/mm3 (0.7-4.5); Lymphocytes % 24.7 % (10-50); Mean Corpuscular HGB Conc 33.2 g/dL (31.8-35.4); Mean Corpuscular Hemoglobin 29.6 pg (27.0-31.2); Mean Corpuscular Volume 89.2 fl (81-99); Mean Platelet Volume 9.3 fl (7.4-10.4); Monocytes # 1.2 K/mm3 (0.1-1.0); Monocytes % 8.2 % (1.7-9.3); Neutrophils # 9.6 K/mm3 (1.8-7.8); Neutrophils % 65.6 % (37.0-80.0); Nucleated Red Blood Cells # 0 10^3/uL; Nucleated Red Blood Cells % 0 %; Platelet Count 321 K/mm3 (142-424); Red Blood Count 4.53 M/mm3 (4.20-5.40); Red Cell Distribution Width 13.8 % (11.5-17.5); White Blood Count 14.6 K/mm3 (4.8-10.8)
[2024-06-20 10:52] LABS: Appearance,Urine CLEAR (Clear); Bilirubin,Urine Negative (Negative); Blood, Urine 1+ (Negative); Color,Urine YELLOW (Yellow); Glucose,Urine (UA) Negative (Negative); Ketones,Urine Negative (Negative); Leukocyte Esterase,Urine 1+ (Negative); Nitrate,Urine Negative (Negative); Protein,Urine Negative (Negative); Urobilinogen,Urine 0.2 EU/dl (0.2)
[2024-06-20 10:56] LABS: RBC,Urine Occasional #/hpf (0-3)
[2024-06-20 10:57] LABS: Bacteria,Urine Trace /lpf; Squamous Epithelial Cell,Urine Occasional #/hpf (0-5)
[2024-06-20 11:00] VITALS: BP 143/94; PULSE 82; O2SAT 97
[2024-06-20 11:02] LABS: Alanine Aminotransferase 29 U/L (12-78); Albumin Level 4.4 g/dl (3.5-5.0); Albumin/Globulin Ratio 1.6 (1.1-1.8); Alkaline Phosphatase 102 U/L (38-126); Aspartate Amino Transferase 25 U/L (14-36); Bilirubin,Total 0.5 mg/dl (0.2-1.3); Blood Urea Nitrogen 16 mg/dl (7-17); Calcium 9.1 mg/dl (8.4-10.2); Carbon Dioxide 22 mmol/L (22.0-30.0); Chloride 107 mmol/L (98-107); Creatinine Clearance Estimated 88 mL/min (50-200); Estimated Glomerular Filt Rate 59 ml/min (>60); GFR (African American) 72 ML/MIN (>60); Globulin 2.8 g/dL (1.3-3.2); Glucose 107 mg/dl (74-100); Lipase 128 U/L (23-300); Sodium 137 mmol/L (136-145); Total Protein,Serum 7.2 g/dl (6.3-8.2)
[2024-06-20 11:07] LABS: C-Reactive Protein 27.2 mg/L (0-4)
--- NOTE | 2024-06-20 11:34 | HMH.EDGENADL ---
Discharge Plan Disposition Patient Disposition: Home, Self-Care Prescriptions Prescriptions: New cefdinir 300 mg capsule 300 mg PO BID 7 Days Qty: 14 0RF No Action cholecalciferol (vitamin D3) 250 mcg (10,000 unit) capsule 250 mcg PO DAILY Qty: 30 3RF diclofenac sodium 1 % gel See Rx Instructions .ROUTE .COMPLEX Qty: 100 2RF Dose Instruction: APPLY TO SINGLE KNEE, ANKLE, FOOT (INCLUDES SOLE/TOES/TOP OF FOOT), & MASSAGE INTO AREA. APPLY 4 GRAMS FOUR TIMES DAILY Rx Instructions: APPLY TO SINGLE KNEE, ANKLE, FOOT (INCLUDES SOLE/TOES/TOP OF FOOT), & MASSAGE INTO AREA. APPLY 4 GRAMS FOUR TIMES DAILY Referrals Follow up/Referrals: Provider,Referral, MD [Primary Care Provider] - See instructions Activity Restrictions/Add. Instructions Additional Instructions/Restrictions: Call your family doctor to establish care for this visit to the emergency department and schedule follow-up within 48 hours to ensure improvement. If you have any worsening of your condition or any other concerning signs or symptoms, return to the emergency department or your primary care doctor for further evaluation. Clinical Impressions Clinical Impression: Cystitis Instructions Patient Instructions: DI for Acute Abdominal Pain Print Language Print Language: Occitan Discharge ED Provider: Norm Starkey General Adult HPI General Chief complaint: Abdominal Pain Stated complaint: Severe abd. pain Time Seen by Provider: 06/20/24 10:16 Mode of Arrival: Wheelchair Source of Information: Patient Description of Symptoms (Recalled from ER Triage Doc. by RN): pt c/o bladder pain x3d. pt points to her pelvic area and states her urethra is painful. pt states her pain is 10/10 and stabbing. pt states she is having burning/pain with urination and frequent urination with minimal output. PVR 8ml History of Present Illness HPI narrative: Please note that above description of symptoms, in this electronic medical record under categorization of recalled from ER triage doctor by RN are reflective of an initial nursing assessment, however, is not reflective of my full history and physical exam that was personally taken and clarified. Consequentially, this preceding description of symptoms, which may include the patient's categorized chief complaint in the EMR, do not reflect my personal clinical impression, and the ultimate description of history of present illness and patient stated complaints should be deferred to this section of the note. Unless stated otherwise or congruent with this section of the note, additional signs, symptoms, or incongruence should be interpreted as inaccurate with my clinical impression. Related Data Previous Rx's ?Medication ?Instructions ?Recorded cholecalciferol (vitamin D3) 250 250 mcg PO DAILY #30 caps 03/05/24 mcg (10,000 unit) capsule diclofenac sodium 1 % topical gel See Rx Instructions .Route 06/14/24 .COMPLEX #100 grams cefdinir 300 mg capsule 300 mg PO BID 7 days #14 caps 06/20/24 Allergies Allergy/AdvReac Type Severity Reaction Status Date / Time Penicillins Allergy Intermediate Anaphylaxis Verified 06/20/24 10:35 codeine Allergy Hives Verified 06/20/24 10:35 ketorolac (From Toradol) AdvReac Mild Vomiting Verified 06/20/24 10:35 PFSH PFSH Disclaimer: The information contained in this section may have been updated after the patient was seen, as this information can be updated by other users. Medical History TMJ (dislocation of temporomandibular joint) Tinnitus Depression Surgical History History of carpal tunnel release Family History Other Coronary artery disease Social History Smoking Status: Current every day smoker tobacco type: cigarettes packs per day: 2 second hand exposure: No alcohol intake: never substance use type: denies use current occupational status: employed and disabled Travel in the last 8 weeks?: None household members: other housing: assisted living facility current occupational exposures/hazards: No caffeine: Yes Have you lived/traveled outside [place] in past 30 days?: No Contact w/someone who lives/traveled outside [place] past 30 days?: No Exposure to someone with infectious disease in past 14 days?: No Do you have a fever (greater than 100.4 F or 38 C)?: No Have you tested positive for COVID-19?: No Exposed to someone with COVID-19 in past 14 days?: No Do you have a sore throat?: No Do you have a cough?: No Do you have any weakness?: No Do you have any diarrhea?: No Are you experiencing any unusual bleeding?: No Do you have any muscle aches/pain?: No Do you have any abdominal pain?: Yes Are you experiencing loss of taste or smell?: No Other Medical History Have you received the Flu Vaccine for this season: No Have you received the Pneumonia Vaccine: No ROS Obtained: Yes All systems reviewed & no additional complaints except as documented Physical Exam General General appearance: alert Head Head exam: atraumatic and normocephalic Eye Eye exam: Present normal appearance, PERRL and EOMI Neck Neck exam: Present normal inspection, full ROM and trachea midline Respiratory Respiratory exam: Absent respiratory distress, wheezes, stridor, accessory muscle use or prolonged expiratory phase Cardiovascular Cardiovascular exam: Present other (Pulses equal symmetric in upper and lower extremities) Abdominal Exam Abdominal exam: Present soft and tenderness; Absent distention, guarding, rebound or pulsatile mass Abdominal tenderness: Present suprapubic Extremities Exam Extremities exam: Absent edema Neurological Exam Neurological exam: Present alert, oriented X3 and CN II-XII intact; Absent motor sensory deficit Skin Skin exam: Present warm and dry; Absent diaphoresis or erythema Medical Decision Making Medical Records Medical records reviewed: Yes I reviewed the patient's medical records. Screening: Per USPSTF and CDC recommendations, given the prevalence of disease in our region, it is our hospital?s policy to screen for HIV and viral Hepatitis for all patients aged 18 and over and those with ongoing risk factors. Abelardo Inquiry Pt receiving controlled substance: No Abelardo was queried for this patient: No Vital Signs: 06/20/24 10:26 06/20/24 10:36 06/20/24 11:00 Temperature 98.6 F Temperature Source Oral Pulse Rate 89 82 Pulse Rate [Left] 79 Respiratory Rate 18 Blood Pressure 136/81 143/94 H Blood Pressure [Right Arm] 136/81 Blood Pressure Mean [Right Arm] 99 Blood Pressure Source [Right Arm] Automatic Cuff Blood Pressure Position [Right Arm] Sitting 02 Sat by Pulse Oximetry 100 98 97 Oxygen Delivery Method Room Air Room Air Lab Data Lab Results 06/20/24 10:21: Urine Color Yellow, Urine Appearance Clear, Urine pH 6.0, Ur Specific [place] 1.020, Urine Protein Negative, Urine Glucose (UA) Negative, Urine Ketones Negative, Urine Blood 1+ A, Urine Nitrate Negative, Urine Bilirubin Negative, Urine Urobilinogen 0.2, Ur Leukocyte Esterase 1+ A, Urine RBC Occasional, Urine WBC 5-10, Ur Squamous Epith Cells Occasional, Urine Bacteria Trace, Urine HCG, Qual Negative 06/20/24 10:30: WBC 14.6 H, RBC 4.53, Hgb 13.4, Hct 40.4, MCV 89.2, MCH 29.6, MCHC 33.2, RDW 13.8, Plt Count 321, MPV 9.3, Neut % (Auto) 65.6, Lymph % (Auto) 24.7, [place] % (Auto) 8.2, Eos % (Auto) 0.7, Baso % (Auto) 0.5, Neut # (Auto) 9.6 H, Lymph # (Auto) 3.6, [place] # (Auto) 1.2 H, Eos # (Auto) 0.1, Baso # (Auto) 0.1, Sodium 137, Potassium 4.0, Chloride 107, Carbon Dioxide 22, Anion Gap 12.0, BUN 16, Creatinine 1.00, Estimated Creat Clear 88, Estimated GFR 59, Est GFR ( Amer) 72, Glucose 107 H, Calcium 9.1, Total Bilirubin 0.5, AST 25, ALT 29, Alkaline Phosphatase 102, C-Reactive Protein 27.2 H, Total Protein 7.2, Albumin 4.4, Globulin 2.8, Albumin/Globulin Ratio 1.6, Lipase 128 06/20/24 11:34: Lactate 1.0 06/20/24 10:30 06/20/24 10:30 Orders (Tests/Meds): ED MEDICATIONS Generic Name Dose Route Start Last Admin Trade Name Freq PRN Reason Stop Dose Admin Ceftriaxone Sodium 1 gm/ 50 mls @ 100 mls/hr 06/20/24 11:45 06/20/24 11:38 Sodium Chloride IV 06/30/24 11:44 100 mls/hr Q24H ELSA Administration Discontinued Medications Generic Name Dose Route Start Last Admin Trade Name Freq PRN Reason Stop Dose Admin Diphenhydramine HCl 25 mg 06/20/24 10:29 06/20/24 10:40 Diphenhydramine 50mg/Ml Vial IV 06/20/24 10:30 25 mg ONCE ONE Administration Sodium Chloride 1,000 mls @ 999 mls/hr 06/20/24 10:29 06/20/24 10:44 Sod Chlor 0.9% 1000ml Bag IV 06/20/24 11:29 999 mls/hr .Q1H1M ONE Administration Ketorolac Tromethamine 15 mg 06/20/24 10:29 06/20/24 10:41 Ketorolac 30mg/Ml Vial IV 06/20/24 10:30 15 mg ONCE ONE Administration Morphine Sulfate 4 mg 06/20/24 10:29 06/20/24 10:43 Morphine 4mg/Ml Syringe IV 06/20/24 10:30 4 mg ONCE ONE Administration Ondansetron HCl 4 mg 06/20/24 10:29 06/20/24 10:43 Ondansetron 4mg/2ml Vial IV 06/20/24 10:30 4 mg ONCE ONE Administration Phenazopyridine HCl 200 mg 06/20/24 10:06/20/24 10:39 Phenazopyridine 200mg Tablet PO 06/20/24 10:30 200 mg ONCE ONE Administration ORDERS Category Date Time Status CRP [C-Reactive Protein] Stat Lab 06/20/24 10:30 Completed Complete Blood Count Auto Diff Stat Lab 06/20/24 10:30 Completed Comprehensive Metabolic Panel Stat Lab 06/20/24 10:30 Completed Lactic Acid Stat Lab 06/20/24 11:34 Completed Lipase Stat Lab 06/20/24 10:30 Completed Urinalysis and Microscopic Stat Lab 06/20/24 10:21 Completed Urine , HCG Qual. Stat Lab 06/20/24 10:21 Completed Urine Culture Stat Micro 06/20/24 10:21 Received Medical Decision Narrative: 49-year-old female presenting with lower abdominal pain. She states that she has been having dysuria, frequency, peeing and small quantities. States that it feels like needles, when she urinates. Also having lower abdominal/suprapubic pain. No vomiting, fevers, chills, or any other concerns. Abdominal pain does not radiate. History was obtained via conversation with patient. On arrival, patient hemodynamically stable, alert, oriented x4, appropriate, GCS 15, moving all extremities spontaneously, pupils equal and reactive to light. Full physical exam performed and significant for uncomfortable appearing female who is in no acute distress. Abdomen is soft, tender in suprapubic area, but no evidence of rebound, rigidity, or guarding. No flank tenderness. Differential includes urinary tract infection, cystitis, urethritis, HSV, diverticulitis, constipation, nephrolithiasis, , ectopic , among others. Patient placed on continuous cardiac monitoring and continuous pulse ox with initial blood pressure 136/81, heart rate 79, saturation 100% on room air. Patient was given 4L, Benadryl, morphine, Zofran for symptomatic management and correction of underlying abnormalities. Workup independently interpreted and significant for mild elevation of white count 14.6 with neutrophilia and monocyte EMEA. Kidney function normal. Lipase negative, urinalysis with blood, leukocyte esterase, white blood cells and bacteria consistent with urethritis/cystitis. CT imaging of the abdomen pelvis was considered. Was not deemed necessary at this time because patient had significant improvement with meds given, evidence of cystitis which I feel explains patient's pain and on reevaluation, patient's abdomen still soft making an incredibly unlikely patient has acute intra-abdominal catastrophe. Given patient presentation, workup, history, this most likely represents acute cystitis. Because patient at baseline without signs or symptoms of clinical decompensation, deemed appropriate for discharge. Results were relayed to patient who voiced understanding and were agreeable to outpatient management and follow up. I discussed my clinical impression with patient and answered all questions. At this time, the evidence for any other entities in the differential is insufficient to warrant any further testing or ED observation. This was explained as well. Advisory was given that persistent or worsening symptoms require further evaluation. I confirmed the understanding of this discussion. [employer] disclaimer Much of this encounter note is an electronic fire control system installer spoken language to printed text. Electronic fire control system installer of the spoken language may permit errors. Although I have reviewed the note, some errors may still exist. Critical Care Critical Care Time Critical Care Time: No
--- NOTE | 2024-06-20 11:36 | PC.NURSE ---
per no cultures needed
[2024-06-20] MEDS: CEFTRIAXONE 1 GM 1 GM in 0.9 % SODIUM CHLORIDE 50 ML IV (11:38)
[2024-06-20 12:13] LABS: Urine Pregnancy, HCG Qual. Negative (Negative)
[2024-06-20 12:31] VITALS: BP 130/94; PULSE 82; RESP 16; TEMP 36.7; O2SAT 98
--- NOTE | 2024-06-22 06:33 | PC.NURSE ---
lab called with positive urine culture results, checked chart with D/C information for susceptibility. D/C with cefedinir, notified MD for need for new antibiotic.
--- NOTE | 2024-06-22 06:55 | PC.NURSE ---
attempted to call patient to inform patient of new antibiotic prescription, patient did not answer and the voicemail was full, was unable to leave a message. Attempted to call husbands number and voicemail was also full. Jaylin made aware and will attempt to call later in the morning.
--- NOTE | 2024-06-22 08:56 | PC.NURSE ---
called patient to let her know urine culture was positive and new antibiotic Macrobid was sent into [facility] pharmacy, pt verified identity and verbalized understanding
== END 2024-06-20 12:32 | disposition home or self-care (01) ==
PROVIDERS: Emergency Provider Emergency Medicine
DX: R10.2 Pelvic and perineal pain (principal); N30.00 Acute cystitis without hematuria; R30.0 Dysuria; R35.0 Frequency of micturition
CPT/HCPCS: 80053; 81001; 81025; 83605; 83690; 85025; 86140; 87086; 87088; 87186; 96361; 96365; 96375; 99285; J0696; J1200; J1885; J2270; J2405; J7030

== ENCOUNTER 2024-08-21 00:08 | Emergency (ER) | payer MEDICAID, SELFPAY ==
[2024-08-21] VITALS (15 sets, daily range): BP systolic 139–154; BP diastolic 79–101; PULSE 58–91; RESP 16; TEMP 36.4–36.7; O2SAT 95–100; BMI 26.9
--- NOTE | 2024-08-21 00:07 | CT_ITS ---
PROCEDURE INFORMATION: Exam: CT Abdomen And Pelvis With Contrast Exam date and time: 08/21/2024 1:13 AM Age: 49 years old Clinical indication: Abdominal pain; Additional info: L flank pain to groin TECHNIQUE: Imaging protocol: Computed tomography of the abdomen and pelvis with contrast. Total images: 288 Radiation optimization: All CT scans at this facility use at least one of these dose optimization techniques: automated exposure control; mA and/or kV adjustment per patient size (includes targeted exams where dose is matched to clinical indication); or iterative reconstruction. Contrast material: ISOVUE; Contrast volume: 75 ml; Contrast route: IV; COMPARISON: CT ABDOMEN PELVIS W CON 03/27/2024 6:01 AM FINDINGS: Lungs: Lung bases are clear. Heart: Normal heart size. Liver: Normal. No mass. Gallbladder and biliary ducts: Status post cholecystectomy. No biliary ductal dilatation. Pancreas: Normal. No ductal dilation. Spleen: Normal. No splenomegaly. Adrenal glands: Normal. No mass. Kidneys and ureters: 8 mm left intrarenal calculus with directly adjacent cortical scarring. No hydronephrosis or renal mass. Multifocal left renal cortical scarring. No perinephric fluid. No ureteral stones. Stomach and bowel: Nonspecific gastric antral wall thickening without surrounding edema. Unremarkable duodenum. No ileus or bowel obstruction. Fluid-filled nondilated small bowel without significant wall thickening. Unremarkable colon and rectum. Appendix: Normal appendix. Intraperitoneal space: No ascites. No free air. Vasculature: Mild atherosclerotic vascular disease. Nonaneurysmal abdominal aorta. Major abdominal vessels enhance appropriately. Pelvic phleboliths. Lymph nodes: Unremarkable. No enlarged lymph nodes. Urinary bladder: Unremarkable as visualized. Reproductive: Status post hysterectomy. No pelvic mass. Bones/joints: Moderate degenerative disc disease L5-S1. Mild scattered degenerative changes remainder of the thoracolumbar spine. No acute osseous abnormality. Soft tissues: Unremarkable. IMPRESSION: 1. 8 mm nonobstructing left intrarenal calculus. No hydronephrosis. 2. Fluid-filled nondilated small bowel is likely physiologic however could consider nonspecific enteritis. 3. Nonspecific gastric antral wall thickening can be seen with acute or chronic gastritis. No complicating features.
--- OUTSIDE RECORDS SUMMARY | 2024-08-21 00:22 | XMS_ITS | Clinical Summary ---
Author Organization Healthcare Address [address] [place] [address] Care Team Providers Care Clinical Project Leader Name Role Phone Pcp, No Primary Care Provider Unavailabl e Allergies Active Allergy Reactions Criticality Noted Date Comments Codeine Unknown - Patient st ates they do not know rxn details Low 05/13/2022 Penicillins Unknown - Patient st ates they do not know rxn details Low 05/13/2022 Ketorolac Tromethamine Other - please do cument in the comment field Low 05/13/2022 mild Medications No known medications Active Problems Problem Noted Date Diagnosed Date Renal cyst 05/13/2022 Family History Medical History Relation Name Comments Migraines Mother Seizures Mother Relation Name Status Comments Mother Social History Tobacco Use Types Packs/Day Years Used Date Smoking Tobacco: Every Day Alcohol Use Standard Drinks/Week Comments No 0 (1 standard drink = 0.6 oz pur e alcohol) Comments Unknown Sex and Gender Information Value Date Recorded Sex Assigned at Not on file Legal Sex Female 8:12 PM EDT Gender Identity Not on file Sexual Orientation Not on file Last Filed Vital Signs Vital Sign Reading Time Taken Comments Blood Pressure 105/68 05/13/2022 4:20 PM EDT Pulse 72 05/13/2022 4:20 PM EDT Temperature 37 C (98.6 F) 05/13/2022 4:20 PM EDT Respiratory Rate 18 05/13/2022 4:20 PM EDT Oxygen Saturation 98% 05/13/2022 4:20 PM EDT Inhaled Oxygen Concentration - - Weight 82.8 kg (182 lb 8.7 oz) 05/13/2022 7:09 A M EDT Height 160 cm (5' 3 ) 03/09/2017 8:29 AM EST Body Mass Index 32.34 03/09/2017 8:29 AM EST Plan of Treatment Not on file Insurance [employer] Care Teams Clinical Project Leader Relationship Specialty Start [place] [address] PCP - General Family Medicine 05/13/22
--- OUTSIDE RECORDS SUMMARY | 2024-08-21 00:22 | XMS_ITS | Patient Health Record ---
Author Organization [facility] [place] Address [address] [place] [id number] Care Team Providers Care Directory Clerk Name Role Phone SARITHA CURTIS Primary Care Provider Reason For Referral No Information Medications Medication SIG (Take, Route, Frequency, Duration) Notes Start Date End Date Status Augmentin 875 mg-125 mg 1 (one) tablet(s ) or oral 2 times a day for ten 02/14/2012 Active Augmentin 500 mg-125 mg 1 (one) tablet(s ) or oral 2 times a day for ten 01/17/2012 Active PROzac 20 mg 1 (one) capsule(s) o oral once a day for thirty 08/08/2011 Active Azithromycin 250 mg 1 (one) tablet(s) or oral once a day for five 03/19/2012 Active Plan Of Treatment No Information Insurance Providers Payer Name Payer Address Payer Phone Subscriber Number Group Number Insured Name Patient Relationship to Insured Coverage Start Date Coverage End Date [employer] [address] [address] [place] [phone] [id number] Barbara Marie Self - patient is the insured
[2024-08-21] MEDS: LACTATED RINGERS 1000ML 1,000 ML 999 ML IV (00:23)
[2024-08-21] MEDS: ONDANSETRON 4MG/2ML VIAL 4 MG IV (00:23)
[2024-08-21] MEDS: MORPHINE 4MG/ML SYRINGE 4 MG IV (00:25)
[2024-08-21 00:26] LABS: Hematocrit 37.8 % (37.0-47.0); Hemoglobin 12.4 g/dL (12.2-16.2); Immature Granulocytes % 0.3 %; Mean Corpuscular HGB Conc 32.8 g/dL (31.8-35.4); Mean Corpuscular Hemoglobin 29.8 pg (27.0-31.2); Mean Corpuscular Volume 90.9 fl (81-99); Nucleated Red Blood Cells % 0 %; Platelet Count 308 K/mm3 (142-424); Red Blood Count 4.16 M/mm3 (4.20-5.40); Red Cell Distribution Width-SD 42.9 fL; White Blood Count 9.6 K/mm3 (4.8-10.8)
[2024-08-21 00:46] LABS: Chloride 105 mmol/L (98-107); HCG Qualitative, Serum Negative (Negative)
[2024-08-21 00:47] LABS: Albumin Level 4.3 g/dl (3.5-5.0); Potassium 4.5 mmoL/L (3.5-5.1); Sodium 138 mmol/L (136-145)
[2024-08-21 00:49] LABS: Blood Urea Nitrogen 14 mg/dl (7-17); Creatinine Clearance Estimated 98 mL/min (50-200); Creatinine,Serum 0.80 mg/dl (0.52-1.04); Estimated Glomerular Filt Rate 77 ml/min (>60); GFR (African American) 93 ML/MIN (>60)
[2024-08-21 00:50] LABS: Alanine Aminotransferase 30 U/L (12-78); Albumin/Globulin Ratio 1.5 (1.1-1.8); Alkaline Phosphatase 85 U/L (38-126); Anion Gap 15.5 mEq/L (5-15); Aspartate Amino Transferase 33 U/L (14-36); Bilirubin,Total 0.2 mg/dl (0.2-1.3); Calcium 8.9 mg/dl (8.4-10.2); Carbon Dioxide 22 mmol/L (22.0-30.0); Globulin 2.8 g/dL (1.3-3.2); Glucose 117 mg/dl (74-100); Total Protein,Serum 7.1 g/dl (6.3-8.2)
[2024-08-21] MEDS: SODIUM CHLORIDE 0.9% 10ML SYR (RAD ONLY) 10 ML IV (01:18)
[2024-08-21] MEDS: IOPAMIDOL-370 (76%);100ML BOTTLE 75 ML IV (01:18)
--- NOTE | 2024-08-21 01:20 | HMH.EDGENADL ---
Discharge Plan Disposition Patient Disposition: Home, Self-Care Condition: Good Prescriptions Prescriptions: New sulfamethoxazole-trimethoprim [Bactrim DS] 800-160 mg tablet 1 tab PO BID 10 Days Qty: 20 0RF No Action cholecalciferol (vitamin D3) 250 mcg (10,000 unit) capsule 250 mcg PO DAILY Qty: 30 3RF diclofenac sodium 1 % gel See Rx Instructions .ROUTE .COMPLEX Qty: 100 2RF Dose Instruction: APPLY TO SINGLE KNEE, ANKLE, FOOT (INCLUDES SOLE/TOES/TOP OF FOOT), & MASSAGE INTO AREA. APPLY 4 GRAMS FOUR TIMES DAILY Rx Instructions: APPLY TO SINGLE KNEE, ANKLE, FOOT (INCLUDES SOLE/TOES/TOP OF FOOT), & MASSAGE INTO AREA. APPLY 4 GRAMS FOUR TIMES DAILY cefdinir 300 mg capsule 300 mg PO BID 7 Days Qty: 14 0RF nitrofurantoin monohyd/m-cryst [Macrobid] 100 mg capsule 100 mg PO BID 5 Days Qty: 10 0RF Rx Instructions: must administer with a meal/food Referrals Follow up/Referrals: Provider,Referral, MD [Primary Care Provider, Medical] - See instructions Activity Restrictions/Add. Instructions Additional Instructions/Restrictions: You were evaluated in the ER and are believed to be appropriate for discharge at this time. Take the prescribed antibiotics as directed, do not skip doses, do not stop taking them early. Take Tylenol or ibuprofen if needed for pain, do not exceed the recommended dose on the bottle. Drink water and eat a small snack each time you take these medications to avoid side effects. Make an appointment with your primary care doctor for reevaluation in 2 to 3 days. Return to the ER with any new, worsening, or otherwise concerning symptoms Clinical Impressions Clinical Impression: UTI (urinary tract infection), Left flank pain, Muscle spasm Instructions Patient Instructions: DI for Acute Abdominal Pain Print Language Print Language: Malay Discharge ED Provider: Beverly Decker General Adult HPI General Chief complaint: Abdominal Pain Stated complaint: Lower Abdominal Pain Time Seen by Provider: 08/21/24 00:10 Mode of Arrival: EMS Source of Information: Patient Description of Symptoms (Recalled from ER Triage Doc. by RN): pt presents to the Ed d/t complaints of lower abdominal pain. pt states had uti and been on keflex starting about 3 wks ago. pt states pain started at 10pm tonight History of Present Illness HPI narrative: 49-year-old female who was treated for UTI 3 weeks ago with Keflex and reportedly completed this course of antibiotics presents to the ER with low abdominal pain complaining of bladder spasm. Patient reports her pain was sudden onset tonight while walking to work. She states it came out of nowhere and felt like shooting pain from her bladder to her left back. She demonstrates to her left CVA area. She states the pain is severe and uncontrollable. She reports not being able to urinate secondary to discomfort from this. She is not having any vaginal bleeding or discharge. She states the pain came all of a sudden and was not gradual in onset but has progressively worsened. Patient arrives holding her suprapubic area. She denies fevers or chills, no vomiting or diarrhea. No upper abdominal pain, no chest pain or difficulty breathing, no other associated symptoms. Related Data Previous Rx's ?Medication ?Instructions ?Recorded cholecalciferol (vitamin D3) 250 250 mcg PO DAILY #30 caps 03/05/24 mcg (10,000 unit) capsule diclofenac sodium 1 % topical gel See Rx Instructions .Route 06/14/24 .COMPLEX #100 grams cefdinir 300 mg capsule 300 mg PO BID 7 days #14 caps 06/20/24 nitrofurantoin 100 mg PO BID 5 days #10 caps 06/22/24 monohydrate/macrocrystals 100 mg capsule (Macrobid) sulfamethoxazole 800 1 tab PO BID 10 days #20 tabs 08/21/24 mg-trimethoprim 160 mg tablet (Bactrim DS) Allergies Allergy/AdvReac Type Severity Reaction Status Date / Time Penicillins Allergy Intermediate Anaphylaxis Verified 08/21/24 00:26 codeine Allergy Hives Verified 08/21/24 00:26 ketorolac (From Toradol) AdvReac Mild Vomiting Verified 08/21/24 00:26 [facility] Disclaimer: The information contained in this section may have been updated after the patient was seen, as this information can be updated by other users. Medical History TMJ (dislocation of temporomandibular joint) Tinnitus Depression Surgical History History of carpal tunnel release Family History Other Coronary artery disease Social History Smoking Status: Never smoker second hand exposure: No alcohol intake: never substance use type: denies use current occupational status: employed and disabled Travel in the last 8 weeks?: None household members: other housing: assisted living facility current occupational exposures/hazards: No caffeine: Yes Do you have any abdominal pain?: Yes Other Medical History Have you received the Flu Vaccine for this season: No Have you received the Pneumonia Vaccine: No ROS Obtained: Yes Systems reviewed as appropriate & no additional complaints except as documented per HPI Physical Exam General General appearance: alert Comment: Obviously in pain, tearful Head Head exam: atraumatic and normocephalic Eye Eye exam: Present PERRL and EOMI ENT ENT exam: Present mucous membranes moist Neck Neck exam: Present normal inspection and full ROM Chest Chest inspection: Present symmetric chest wall rise Respiratory Respiratory exam: Present normal lung sounds bilaterally; Absent respiratory distress, wheezes or stridor Cardiovascular Cardiovascular exam: Present regular rate and normal rhythm Abdominal Exam Abdominal exam: Present soft and tenderness (Suprapubic); Absent distention, guarding or rebound Extremities Exam Extremities exam: Present full ROM Back Exam Back exam: Present CVA tenderness (L); Absent CVA tenderness (R) Neurological Exam Neurological exam: Present alert and oriented X3; Absent motor sensory deficit Psychiatric Psychiatric exam: Present normal affect and normal mood Skin Skin exam: Present warm and dry Medical Decision Making Medical Records Medical records reviewed: Yes I reviewed the patient's medical records. Screening: Per USPSTF and CDC recommendations, given the prevalence of disease in our region, it is our hospital?s policy to screen for HIV and viral Hepatitis for all patients aged 18 and over and those with ongoing risk factors. Abelardo Inquiry Pt receiving controlled substance: No Vital Signs: 08/21/24 00:07 08/21/24 00:28 08/21/24 00:30 Temperature 97.6 F Temperature Source Oral Pulse Rate 74 70 Pulse Rate [Right Radial] 91 H Respiratory Rate 16 Blood Pressure Blood Pressure [Right Arm] 154/79 H Blood Pressure Mean Blood Pressure Mean [Right Arm] 104 02 Sat by Pulse Oximetry 98 98 99 Oxygen Delivery Method Room Air 08/21/24 00:31 08/21/24 00:31 08/21/24 00:45 Temperature Temperature Source Pulse Rate 78 73 Pulse Rate [Right Radial] Respiratory Rate Blood Pressure 147/101 H Blood Pressure [Right Arm] Blood Pressure Mean 106 Blood Pressure Mean [Right Arm] 02 Sat by Pulse Oximetry 98 96 Oxygen Delivery Method 08/21/24 01:00 08/21/24 01:00 08/21/24 01:16 Temperature Temperature Source Pulse Rate 74 82 Pulse Rate [Right Radial] Respiratory Rate Blood Pressure 148/80 H Blood Pressure [Right Arm] Blood Pressure Mean 109 Blood Pressure Mean [Right Arm] 02 Sat by Pulse Oximetry 95 100 Oxygen Delivery Method 08/21/24 01:30 08/21/24 01:30 08/21/24 01:45 Temperature Temperature Source Pulse Rate 65 61 Pulse Rate [Right Radial] Respiratory Rate Blood Pressure 144/87 H Blood Pressure [Right Arm] Blood Pressure Mean 116 Blood Pressure Mean [Right Arm] 02 Sat by Pulse Oximetry 97 96 Oxygen Delivery Method 08/21/24 02:00 08/21/24 02:30 08/21/24 02:30 Temperature Temperature Source Pulse Rate 58 L 71 Pulse Rate [Right Radial] Respiratory Rate Blood Pressure 142/92 H 150/92 H Blood Pressure [Right Arm] Blood Pressure Mean 108 101 Blood Pressure Mean [Right Arm] 02 Sat by Pulse Oximetry 98 96 Oxygen Delivery Method Lab Data Lab Results 08/21/24 00:17: WBC 9.6, RBC 4.16 L, Hgb 12.4, Hct 37.8, MCV 90.9, MCH 29.8, MCHC 32.8, RDW 12.9, Plt Count 308, MPV 9.4, Neut % (Auto) 62.8, Lymph % (Auto) 29.2, [place] % (Auto) 5.8, Eos % (Auto) 1.2, Baso % (Auto) 0.7, Neut # (Auto) 6.0, Lymph # (Auto) 2.8, [place] # (Auto) 0.6, Eos # (Auto) 0.1, Baso # (Auto) 0.1, Sodium 138, Potassium 4.5, Chloride 105, Carbon Dioxide 22, Anion Gap 15.5 H, BUN 14, Creatinine 0.80, Estimated Creat Clear 98, Estimated GFR 77, Est GFR ( Amer) 93, Glucose 117 H, Calcium 8.9, Total Bilirubin 0.2, AST 33, ALT 30, Alkaline Phosphatase 85, Total Protein 7.1, Albumin 4.3, Globulin 2.8, Albumin/Globulin Ratio 1.5, Serum HCG, Qual Negative 08/21/24 01:26: Urine Color Yellow, Urine Appearance Clear, Urine pH 6.0, Ur Specific [place] 1.015, Urine Protein Negative, Urine Glucose (UA) Negative, Urine Ketones Negative, Urine Blood Negative, Urine Nitrate Positive A, Urine Bilirubin Negative, Urine Urobilinogen 0.2, Ur Leukocyte Esterase Negative, Urine RBC 3-5, Urine WBC 10-20, Ur Squamous Epith Cells 5-10, Amorphous Sediment 1+, Urine Bacteria 3+, Urine Mucus 2+ 08/21/24 00:17 08/21/24 00:17 Orders (Tests/Meds): ED MEDICATIONS Generic Name Dose Route Start Last Admin Trade Name Freq PRN Reason Stop Dose Admin Sodium Chloride 10 ml 08/21/24 01:17 08/21/24 01:18 Sodium Chloride 0.9% 10ml Syr (Rad Only) IV 09/20/24 01:16 10 ml NEEDED PRN Administration Maintain IV Site Trimethoprim/Sulfamethoxazole 1 each 08/21/24 03:08 Sulfa/Trimethoprim 1 Tablet PO 08/21/24 03:09 ONCE ONE Discontinued Medications Generic Name Dose Route Start Last Admin Trade Name Freq PRN Reason Stop Dose Admin Lactated Ringer's 1,000 mls @ 999 mls/hr 08/21/24 00:07 08/21/24 00:23 Lactated Ringer's 1000 Ml Bag IV 08/21/24 01:07 999 mls/hr .Q1H1M ONE Administration Iopamidol 75 ml 08/21/24 01:17 08/21/24 01:18 Iopamidol-370 (76%);100ml Bottle IV 08/21/24 01:18 75 ml ONCE ONE Administration Morphine Sulfate 4 mg 08/21/24 00:07 08/21/24 00:25 Morphine 4mg/Ml Syringe IV 08/21/24 00:08 4 mg ONCE ONE Administration Ondansetron HCl 4 mg 08/21/24 00:07 08/21/24 00:23 Ondansetron 4mg/2ml Vial IV 08/21/24 00:08 4 mg ONCE ONE Administration ORDERS Category Date Time Status CT abdomen pelvis w con Stat Cat Scan 08/21/24 00:07 Completed CBC w/Auto Diff [Complete Blood Count Auto Diff] Stat Lab 08/21/24 00:17 Completed CMP [Comprehensive Metabolic Panel] Stat Lab 08/21/24 00:17 Completed HCG Qualitative, Serum Stat Lab 08/21/24 00:17 Completed Urinalysis and Microscopic Stat Lab 08/21/24 01:26 Completed Urine Culture Stat Micro 08/21/24 01:26 Received Medical Decision Narrative: In summary, this 49-year-old female with comorbidities described in the HPI as well as history of TMJ, PTSD, chronic nausea, occipital neuralgia presents to the emergency department today with suprapubic abdominal pain radiating to the left flank sudden in onset and gradually worsening. On initial evaluation patient is hemodynamically stable, afebrile, but tearful with pain, exam notable for mild suprapubic tenderness to palpation as well as significant left CVA tenderness to percussion. Differential diagnosis includes but is not limited to urinary tract infection, pyelonephritis, nephrolithiasis, ureterolithiasis, hydronephrosis, kidney dysfunction, muscle spasm, electrolyte abnormality, cystitis, bladder spasm, among others. Based on these concerns, I ordered serum labs, urine studies, CT abdomen pelvis. Patient received morphine, Zofran, IV fluids initially for treatment. Labs personally reviewed demonstrate no leukocytosis, no anemia, platelets normal, CMP with trace elevation in anion gap which I do not believe is specific or actionable at this time, she is actively tolerating oral intake. No hyperbilirubinemia, normal kidney function, hCG negative, UA concerning for findings of infection with 10-20 WBCs, to slightly contaminated with squamous cells but it is also nitrate positive concerning for gram-negative infection. I initially ordered cefdinir but then remembered patient had had recent UTI so I reviewed the most recent urine culture results from June which demonstrated ESBL. Based off this culture result, I canceled the cefdinir and ordered Bactrim. CT abdomen pelvis personally interpreted demonstrates intrarenal stone on the left but no evidence of ureterolithiasis, possible enteritis but no other acute intra-abdominal pathology. See radiology read for final interpretation. Radiology read comments on possible gastritis which does not correlate clinically at this time. On reassessment patient is resting very comfortably, she has been sleeping and playing on her phone. I woke her up and explained her results to her. She is agreeable to antibiotics and discharge. We discussed that this could be an early kidney infection versus muscle spasm since the pain was sudden in onset. She was reassured that she does not have a kidney stone. While I am considering possible very early pyelonephritis in the setting of urinary tract infection with flank pain, patient has very reassuring vitals and no fever so I believe she is appropriate for outpatient management at this time. She is comfortable with this plan. Patient was given instructions on symptomatic management, medication use, follow up instructions, and return precautions for the emergency department. Patient indicated understanding and was discharged in stable condition. Critical Care Critical Care Time Critical Care Time: No
[2024-08-21 01:30] LABS: Microscopic, Urine URINE MICROSCOPIC (MICROSCOPIC)
[2024-08-21 01:40] LABS: Bilirubin,Urine Negative (Negative); Color,Urine YELLOW (Yellow); Glucose,Urine (UA) Negative (Negative); Ketones,Urine Negative (Negative); Leukocyte Esterase,Urine Negative (Negative); PH,Urine 6.0 (5.0-8.5); Protein,Urine Negative (Negative); Specific Gravity, Urine 1.015 (1.005-1.030); Urobilinogen,Urine 0.2 EU/dl (0.2)
[2024-08-21 01:51] LABS: Amorphous Sediment,Urine 1+ /lpf; Bacteria,Urine 3+ /lpf; Mucus,Urine 2+ /lpf
[2024-08-21] MEDS: SULFA/TRIMETHOPRIM 1 TABLET 1 EACH PO (03:13)
--- NOTE | 2024-08-23 10:56 | PC.NURSE ---
I discussed the pts prelim urine culture results with . No change needed to his treatment plan.
== END 2024-08-21 03:21 | disposition home or self-care (01) ==
PROVIDERS: Emergency Provider Emergency Medicine
DX: R10.30 Lower abdominal pain, unspecified (principal); N39.0 Urinary tract infection, site not specified; M62.838 Other muscle spasm; M54.59 Other low back pain
CPT/HCPCS: 74177; 80053; 81001; 84703; 85025; 87086; 87088; 87186; 96361; 96374; 96375; 99285; J2270; J2405; J7120; Q9967